=== PATIENT | male | born 1940 | race Two or more races ===

== ENCOUNTER 2023-05-31 12:32 | Inpatient (IN) | payer OTHER ==
[~2023-05-31] VITALS: Ht 188 cm; Wt 55.5 kg
[2023-05-31] MEDS ORDERED: SODIUM CHLORIDE 0.9% 1,000 ML IV ONE (13:00)
[2023-05-31 13:28] LABS: Basophils # (auto) 0 10 ^3/uL (0-0.2); Basophils % (auto) 0.7 % (0.0-2.0); Eosinophils # (auto) 0.1 10 ^3/uL (0-0.8); Eosinophils % (auto) 1.9 % (0.0-7.0); Hematocrit 39.9 % (41.0-53.0); Hemoglobin 13.4 g/dL (13.5-17.5); Lymphocytes # (auto) 2.8 10 ^3/uL (0.4-5.4); Lymphocytes % (auto) 36.4 % (10.0-50.0); Mean Corpuscular Hemoglobin 31.6 pg (28.0-32.0); Mean Corpuscular Hgb Conc. 33.6 g/dL (32.0-36.0); Mean Corpuscular Volume 93.9 fL (80.0-100.0); Monocytes # (auto) 0.4 10 ^3/uL (0-1.3); Monocytes % (auto) 5.9 % (0.0-12.0); Neutrophils # (auto) 4.2 10 ^3/uL (1.6-8.6); Neutrophils % (auto) 55.1 % (37.0-80.0); Nucleated Red Blood Cells % 0.2 %; Red Blood Cells 4.25 10^6/uL (4.5-5.90); Red Cell Distribution Width 14.7 % (11.8-14.3); White Blood Cell 7.6 10^3/uL (4.4-10.8)
[2023-05-31 13:34] VITALS: PULSE 77; RESP 17; O2SAT 98
[2023-05-31 13:47] LABS: Lactic Acid w/Reflex 4.8 mmol/L (0.4-2.0)
[2023-05-31 13:49] LABS: Albumin 3.3 g/dL (3.4-5.0); Calcium 9.1 mg/dL (8.5-10.1); Magnesium 1.9 mg/dL (1.6-2.6); Potassium 4.5 mmol/L (3.5-5.1)
[2023-05-31 14:05] LABS: BUN/Creatinine Ratio 16.7 (10.0-20.0); Bilirubin, Total 0.9 mg/dL (0.2-1.0); Total Protein 7.3 g/dL (6.4-8.2)
[2023-05-31 18:24] LABS: Urine Bacteria FEW /hpf (None Seen); Urine Blood 3+ /uL (Negative); Urine Clarity HAZY (Clear); Urine Color Yellow (Yellow); Urine Protein, UAD TRACE (Negative); Urine Specific Gravity 1.014 (1.001-1.035); Urine Urobilinogen Normal (Negative); Urine WBC 56 /hpf (0 - 3)
[2023-05-31 19:30] VITALS: PULSE 57; RESP 16; O2SAT 100
[2023-05-31] MEDS ORDERED: cefTRIAXone 1GM/50ML D5W 50 ML IV ONE (21:00)
[2023-05-31] MEDS: ACCU-CHEK COMFORT CURVE STRIP VI SCH (22:00)
[2023-05-31] MEDS ORDERED: NITROGLYCERIN 0.4 MG SL TAB SL PRN (22:00)
[2023-05-31] MEDS ORDERED: MORPHINE SULFATE INJ 2 MG/ml SYRG IV PRN (22:00)
[2023-05-31] MEDS ORDERED: DEXTROSE (50%) 50ML SYRG IV PRN (22:00)
[2023-05-31 22:13] LABS: COVID19 ANTIGEN SOFIA FIA NEGATIVE (NEGATIVE)
[2023-05-31] MEDS ORDERED: HYDR12.59 PO (22:16)
[2023-05-31] MEDS ORDERED: ATOR40TA52 PO (22:16)
[2023-05-31] MEDS ORDERED: METO-289 PO (22:16)
[2023-05-31] MEDS ORDERED: TELM1TAB33 PO (22:16)
[2023-05-31] MEDS ORDERED: PIOG1TAB37 PO (22:16)
[2023-05-31] MEDS ORDERED: ASPI-325 PO (22:16)
[2023-05-31] MEDS: InsuLIN REG 1unit/0.01ml Soln (100units/ml) SC SCH (22:58)
[2023-05-31] MEDS: SODIUM CHLORIDE 0.9% 1,000 ML IV SCH (23:04)
[2023-06-01] MEDS ORDERED: ACETAMINOPHEN 500 MG TAB PO ONE (01:45)
[2023-06-01 06:03] LABS: Basophils # (auto) 0 10 ^3/uL (0-0.2); Basophils % (auto) 0.1 % (0.0-2.0); Eosinophils # (auto) 0 10 ^3/uL (0-0.8); Hematocrit 37.2 % (41.0-53.0); Hemoglobin 12.5 g/dL (13.5-17.5); Lymphocytes # (auto) 0.4 10 ^3/uL (0.4-5.4); Lymphocytes % (auto) 2.3 % (10.0-50.0); Mean Corpuscular Hemoglobin 31.2 pg (28.0-32.0); Mean Corpuscular Hgb Conc. 33.6 g/dL (32.0-36.0); Mean Corpuscular Volume 92.7 fL (80.0-100.0); Monocytes # (auto) 0.9 10 ^3/uL (0-1.3); Monocytes % (auto) 5.5 % (0.0-12.0); Neutrophils % (auto) 92.1 % (37.0-80.0); Red Blood Cells 4.01 10^6/uL (4.5-5.90); Red Cell Distribution Width 14.1 % (11.8-14.3); White Blood Cell 17.4 10^3/uL (4.4-10.8)
[2023-06-01] MEDS ORDERED: SODIUM CHLORIDE 0.9% 500 ML IV ONE (06:15)
[2023-06-01 06:17] LABS: Albumin 2.8 g/dL (3.4-5.0); Calcium 8.4 mg/dL (8.5-10.1); Potassium 3.3 mmol/L (3.5-5.1)
[2023-06-01] MEDS: SODIUM CHLORIDE 0.9% 1,000 ML IV SCH ×2 (06:18→14:53)
[2023-06-01 06:19] LABS: Sodium Urine 101 mmol/L (40-220)
[2023-06-01 06:23] LABS: BUN/Creatinine Ratio 22.6 (10.0-20.0); Bilirubin, Total 0.6 mg/dL (0.2-1.0); Total Protein 6.4 g/dL (6.4-8.2)
[2023-06-01 06:23] LABS: Creatinine, Urine 96 mg/dL (30.0-125.0)
[2023-06-01] MEDS: InsuLIN REG 1unit/0.01ml Soln (100units/ml) SC SCH ×4 (07:00→22:00)
[2023-06-01] MEDS: ACCU-CHEK COMFORT CURVE STRIP VI SCH ×4 (07:03→22:00)
[2023-06-01 07:45] VITALS: PULSE 74; RESP 17; O2SAT 97
[2023-06-01] MEDS: METOPROLOL SUCCINATE XL 50 MG TAB PO SCH (09:15)
[2023-06-01] MEDS: PANTOPRAZOLE 40 MG TAB PO SCH (09:25)
[2023-06-01] MEDS: ASPirin-EC 81 mg tab PO SCH (09:25)
[2023-06-01] MEDS: cefTRIAXone 1GM/50ML D5W 50 ML IV SCH (09:25)
[2023-06-01 19:50] VITALS: O2SAT 97
[2023-06-01] MEDS: ATORVASTATIN 20 MG TAB PO SCH (22:00)
[2023-06-01 23:08] VITALS: BP 121/51; PULSE 59; RESP 20; TEMP 98; O2SAT 95
[2023-06-01 23:30] VITALS: BP 116/74; PULSE 77; PULSE 81; RESP 18; TEMP 98; O2SAT 96
[2023-06-02] VITALS (7 sets, daily range): BP systolic 117–151; BP diastolic 47–67; PULSE 49–59; RESP 16–18; TEMP 97.6–98; O2SAT 98–100
[2023-06-02] MEDS: SODIUM CHLORIDE 0.9% 1,000 ML IV SCH ×4 (05:09→21:48)
[2023-06-02] MEDS: ACCU-CHEK COMFORT CURVE STRIP VI SCH ×4 (05:42→21:44)
[2023-06-02] MEDS: InsuLIN REG 1unit/0.01ml Soln (100units/ml) SC SCH ×4 (05:42→21:50)
[2023-06-02] MEDS: cefTRIAXone 1GM/50ML D5W 50 ML IV SCH (09:43)
[2023-06-02] MEDS: ASPirin-EC 81 mg tab PO SCH (09:43)
[2023-06-02] MEDS: METOPROLOL SUCCINATE XL 50 MG TAB PO SCH (09:43)
[2023-06-02] MEDS: PANTOPRAZOLE 40 MG TAB PO SCH (09:43)
[2023-06-02] MEDS: ATORVASTATIN 20 MG TAB PO SCH (21:44)
[2023-06-03 04:52] VITALS: BP 126/52; PULSE 50; RESP 18; TEMP 98.3; O2SAT 100
[2023-06-03] MEDS: SODIUM CHLORIDE 0.9% 1,000 ML IV SCH ×2 (06:00→14:00)
[2023-06-03] MEDS: InsuLIN REG 1unit/0.01ml Soln (100units/ml) SC SCH ×3 (07:00→17:00)
[2023-06-03] MEDS: ACCU-CHEK COMFORT CURVE STRIP VI SCH ×3 (07:00→18:36)
[2023-06-03] MEDS: PANTOPRAZOLE 40 MG TAB PO SCH (08:17)
[2023-06-03] MEDS: ASPirin-EC 81 mg tab PO SCH (08:17)
[2023-06-03] MEDS: cefTRIAXone 1GM/50ML D5W 50 ML IV SCH (08:17)
[2023-06-03] MEDS: METOPROLOL SUCCINATE XL 50 MG TAB PO SCH (08:17)
[2023-06-03 09:00] VITALS: BP 135/58; PULSE 58; RESP 18; TEMP 97.7; O2SAT 99
[2023-06-03] MEDS ORDERED: CIPR-173 PO (10:30)
[2023-06-03 12:52] VITALS: BP 125/60; PULSE 52; RESP 16; TEMP 97.6; O2SAT 98
[2023-06-03 13:08] VITALS: BP 135/58; PULSE 58; TEMP 36.4
[2023-06-03 17:00] VITALS: BP 136/66; PULSE 50; RESP 16; TEMP 97.9; O2SAT 99
== END 2023-06-03 19:03 | disposition home or self-care (01) | DRG 871 ==
LOC: ER 12:32 → TELE 22:14 → TELE-WESTW 06-01 22:50
PROVIDERS: ADMIT Nurse Practitioner Family; ATTEND Family Medicine
DX: A41.51 Sepsis due to Escherichia coli [E. coli] (principal); N17.0 Acute kidney failure with tubular necrosis; E87.21 Acute metabolic acidosis; E44.1 Mild protein-calorie malnutrition; N30.01 Acute cystitis with hematuria; Z68.1 Body mass index [BMI] 19.9 or less, adult; R79.89 Other specified abnormal findings of blood chemistry; E11.65 Type 2 diabetes mellitus with hyperglycemia; I10 Essential (primary) hypertension; E78.00 Pure hypercholesterolemia, unspecified; E86.0 Dehydration; F10.10 Alcohol abuse, uncomplicated; Z20.822 Contact with and (suspected) exposure to COVID-19; Z90.49 Acquired absence of other specified parts of digestive tract; Z71.51 Drug abuse counseling and surveillance of drug abuser
CPT/HCPCS: 36415; 71045; 80053; 80320; 81001; 82010; 82570; 82962; 83036; 83605; 83735; 84300; 84443; 85025; 87040; 87086; 87088; 87186; 87426; 93005; 96361; 96365; G0378; J0696; J1815

== ENCOUNTER → 2023-06-19 | Outpatient (CLI) | payer OTHER ==
[~2023-06-19] MED LIST: ASPI-325 PO; ATOR40TA52 PO; CIPR-173 PO; HYDR12.59 PO; METO-289 PO; PIOG1TAB37 PO; TELM1TAB33 PO
[2023-06-19 11:14] LABS: Urine Bacteria NONE SEEN /hpf (None Seen); Urine Blood Negative /uL (Negative); Urine Clarity Clear (Clear); Urine Color Yellow (Yellow); Urine Protein, UAD TRACE (Negative); Urine Specific Gravity 1.019 (1.001-1.035); Urine Urobilinogen Normal (Negative); Urine WBC 6 /hpf (0 - 3); Urine pH 5.5 (5.0-8.0)
== END | disposition home or self-care (01) ==
LOC: LAB 11:01
PROVIDERS: ATTEND Internal Medicine
DX: N39.0 Urinary tract infection, site not specified (principal)
CPT/HCPCS: 81001; 87086

== ENCOUNTER → 2023-08-29 | Outpatient (CLI) | payer OTHER ==
[2023-08-29 11:28] LABS: Basophils # (auto) 0 10 ^3/uL (0-0.2); Basophils % (auto) 0.4 % (0.0-2.0); Eosinophils # (auto) 0.2 10 ^3/uL (0-0.8); Eosinophils % (auto) 3.2 % (0.0-7.0); Hematocrit 35.8 % (41.0-53.0); Hemoglobin 12.1 g/dL (13.5-17.5); Lymphocytes # (auto) 2.3 10 ^3/uL (0.4-5.4); Lymphocytes % (auto) 31.6 % (10.0-50.0); Mean Corpuscular Hemoglobin 31.8 pg (28.0-32.0); Mean Corpuscular Hgb Conc. 33.9 g/dL (32.0-36.0); Mean Corpuscular Volume 93.9 fL (80.0-100.0); Monocytes # (auto) 0.4 10 ^3/uL (0-1.3); Monocytes % (auto) 5.9 % (0.0-12.0); Neutrophils # (auto) 4.3 10 ^3/uL (1.6-8.6); Neutrophils % (auto) 58.9 % (37.0-80.0); Red Blood Cells 3.82 10^6/uL (4.5-5.90); Red Cell Distribution Width 15.1 % (11.8-14.3); White Blood Cell 7.3 10^3/uL (4.4-10.8)
[2023-08-29 12:17] LABS: Folate (Folic Acid) 23.3 ng/mL (>5.38)
[2023-08-29 12:20] LABS: Alanine Aminotransferase 12 U/L (7-40); Albumin 3.8 g/dL (3.2-4.8); Alkaline Phosphatase 109 U/L (46-116); Anion Gap 11 (5-15); Aspartate Aminotransferase 17 U/L (13-40); Bilirubin, Total 0.8 mg/dL (0.2-1.0); Blood Urea Nitrogen 13 mg/dL (9-23); Calcium 8.8 mg/dL (8.7-10.4); Carbon Dioxide 24 mmol/L (20-30); Chloride 103 mmol/L (98-107); Glucose 198 mg/dL (74-106); Potassium 4.1 mmol/L (3.5-5.1); Sodium 138 mmol/L (136-145); Total Protein 6.8 g/dL (5.7-8.2); Uric Acid 7.1 mg/dL (3.7-9.2)
[2023-08-29 12:30] LABS: Cholesterol 66 mg/dL (< 200); Triglycerides 73 mg/dL (< 150)
[2023-08-29 12:31] LABS: HDL Cholesterol 24 mg/dL (40-59); LDL Cholesterol 27 mg/dL (< 100)
== END | disposition home or self-care (01) ==
LOC: LAB 11:13
PROVIDERS: ATTEND Internal Medicine
DX: E61.2 Magnesium deficiency (principal); E79.0 Hyperuricemia without signs of inflammatory arthritis and tophaceous disease; R94.6 Abnormal results of thyroid function studies; R82.998 Other abnormal findings in urine; E55.9 Vitamin D deficiency, unspecified; D51.9 Vitamin B12 deficiency anemia, unspecified; R82.79 Other abnormal findings on microbiological examination of urine; E78.49 Other hyperlipidemia; R68.89 Other general symptoms and signs; R78.89 Finding of other specified substances, not normally found in blood; R73.09 Other abnormal glucose
CPT/HCPCS: 36415; 80053; 80061; 82306; 82607; 82746; 83036; 84443; 84550; 85025

== ENCOUNTER 2024-01-30 15:28 | Inpatient (IN) | payer OTHER, MEDICAID ==
[~2024-01-30] VITALS: Ht 185.4 cm; Wt 78.3 kg
[~2024-01-30 15:28] MED LIST changes: +CEFD300C2 PO; -CIPR-173 PO; -METO-289 PO; +MULT-1018 PO
[2024-01-30 20:45] LABS: Basophils # (auto) 0 10 ^3/uL (0-0.2); Basophils % (auto) 0.5 % (0.0-2.0); Eosinophils # (auto) 0.2 10 ^3/uL (0-0.8); Eosinophils % (auto) 3.5 % (0.0-7.0); Hematocrit 39.5 % (41.0-53.0); Lymphocytes % (auto) 30.2 % (10.0-50.0); Mean Corpuscular Hemoglobin 30.9 pg (28.0-32.0); Mean Corpuscular Volume 93.7 fL (80.0-100.0); Monocytes # (auto) 0.4 10 ^3/uL (0-1.3); Monocytes % (auto) 6.9 % (0.0-12.0); Neutrophils # (auto) 3.8 10 ^3/uL (1.6-8.6); Neutrophils % (auto) 58.9 % (37.0-80.0); Nucleated Red Blood Cells % 0.1 %; Red Blood Cells 4.21 10^6/uL (4.5-5.90); Red Cell Distribution Width 14.1 % (11.8-14.3); White Blood Cell 6.5 10^3/uL (4.4-10.8)
[2024-01-30 21:00] VITALS: BP 150/66; PULSE 57; RESP 17; TEMP 96.9; O2SAT 97
[2024-01-30 21:02] LABS: Alanine Aminotransferase 12 U/L (7-40); Albumin 3.7 g/dL (3.2-4.8); Alkaline Phosphatase 85 U/L (46-116); Anion Gap 9 (5-15); Aspartate Aminotransferase 19 U/L (13-40); BUN/Creatinine Ratio 12.7 (10.0-20.0); Blood Alcohol 4.6 mg/dL (<10); Blood Urea Nitrogen 13 mg/dL (9-23); Calcium 9.1 mg/dL (8.5-10.1); Carbon Dioxide 23 mmol/L (20-30); Chloride 106 mmol/L (98-107); Glucose 172 mg/dL (74-106); Potassium 4.4 mmol/L (3.5-5.1); Sodium 138 mmol/L (136-145)
[2024-01-30 21:03] LABS: Bilirubin, Total 0.4 mg/dL (0.2-1.0); Total Protein 6.6 g/dL (5.7-8.2)
[2024-01-30 21:32] LABS: Lactic Acid w/Reflex 2.2 mmol/L (0.4-2.0)
[2024-01-30 21:34] LABS: Magnesium 1.8 mg/dL (1.6-2.6)
[2024-01-30] MEDS: SODIUM CHLORIDE 0.9% 1,000 ML IV ONE (23:02)
[2024-01-30] MEDS ORDERED: NITROGLYCERIN 0.4 MG SL TAB SL PRN (23:15)
[2024-01-30] MEDS ORDERED: ONDANSETRON HCL 4 MG/2 ML VIAL IV PRN (23:15)
[2024-01-30] MEDS: SODIUM CHLORIDE 0.9% 1,000 ML IV SCH (23:15)
[2024-01-30] MEDS ORDERED: HYDROcodone-ACET 5/325MG TAB PO PRN (23:15)
[2024-01-30] MEDS ORDERED: MORPHINE SULFATE INJ 2 MG/ml SYRG IV PRN (23:15)
[2024-01-31] MEDS: SODIUM CHLORIDE 0.9% 500 ML IV ONE (00:27)
[2024-01-31 01:00] VITALS: BP 142/61; PULSE 50; RESP 18; TEMP 97.6; O2SAT 100
[2024-01-31 06:04] LABS: Basophils # (auto) 0 10 ^3/uL (0-0.2); Basophils % (auto) 0.7 % (0.0-2.0); Eosinophils # (auto) 0.2 10 ^3/uL (0-0.8); Eosinophils % (auto) 4.3 % (0.0-7.0); Hematocrit 32.1 % (41.0-53.0); Hemoglobin 10.7 g/dL (13.5-17.5); Lymphocytes % (auto) 34.2 % (10.0-50.0); Mean Corpuscular Hemoglobin 31.1 pg (28.0-32.0); Mean Corpuscular Hgb Conc. 33.3 g/dL (32.0-36.0); Mean Corpuscular Volume 93.4 fL (80.0-100.0); Monocytes # (auto) 0.5 10 ^3/uL (0-1.3); Monocytes % (auto) 8.8 % (0.0-12.0); Nucleated Red Blood Cells % 0.1 %; Red Blood Cells 3.43 10^6/uL (4.5-5.90); Red Cell Distribution Width 14.1 % (11.8-14.3); White Blood Cell 5.7 10^3/uL (4.4-10.8)
[2024-01-31 06:27] LABS: Albumin 2.8 g/dL (3.2-4.8); Alkaline Phosphatase 65 U/L (46-116); Anion Gap 8 (5-15); Aspartate Aminotransferase < 8 U/L (13-40); BUN/Creatinine Ratio 15.1 (10.0-20.0); Bilirubin, Total 0.3 mg/dL (0.2-1.0); Blood Urea Nitrogen 14 mg/dL (9-23); Calcium 8.1 mg/dL (8.5-10.1); Carbon Dioxide 23 mmol/L (20-30); Chloride 110 mmol/L (98-107); Glucose 130 mg/dL (74-106); Sodium 141 mmol/L (136-145); Total Protein 4.9 g/dL (5.7-8.2)
[2024-01-31 06:33] LABS: Alanine Aminotransferase 9 U/L (7-40)
[2024-01-31 14:18] VITALS: BP 113/68; PULSE 53; RESP 18; TEMP 97.8; O2SAT 98
[2024-01-31 19:50] VITALS: PULSE 50
[2024-01-31 20:00] VITALS: PULSE 52
[2024-01-31 21:00] VITALS: BP 150/66; PULSE 57; RESP 17; TEMP 96.9; O2SAT 97
[2024-02-01] VITALS (11 sets, daily range): BP systolic 116–176; BP diastolic 61–85; PULSE 49–62; RESP 17–21; TEMP 97.5–98.4; O2SAT 96–100
[2024-02-02] VITALS (8 sets, daily range): BP systolic 140–187; BP diastolic 58–83; PULSE 44–65; RESP 16–19; TEMP 97.4–98.1; O2SAT 98–100
[2024-02-02] MEDS: hydrALAZINE HCL 20 MG/ML VL IV PRN (14:09)
[2024-02-02] MEDS: hydroCHLOROthiazide 25 MG TAB PO ONE (14:10)
[2024-02-02] MEDS: SODIUM CHLORIDE 0.9% 1,000 ML IV SCH (17:36)
[2024-02-03] VITALS (8 sets, daily range): BP systolic 123–156; BP diastolic 58–67; PULSE 58–77; RESP 15–19; TEMP 97.7–98.2; O2SAT 95–99
[2024-02-03] MEDS: hydroCHLOROthiazide 25 MG TAB PO SCH (10:23)
[2024-02-03] MEDS: cefTRIAXone 1GM/50ML D5W 50 ML IV ONE (13:13)
[2024-02-03 17:20] LABS: Urine Bacteria None Seen /hpf (None Seen)
[2024-02-03 17:29] LABS: Urine Blood Negative /uL (Negative); Urine Clarity Clear (Clear); Urine Color Light-Yellow (Yellow); Urine Protein, UAD Negative (Negative); Urine Specific Gravity 1.011 (1.001-1.035); Urine Urobilinogen Normal (Negative); Urine WBC 2 /hpf (0 - 3)
[2024-02-03 19:10] LABS: Amphetamine Screen, Urine Neg (NEGATIVE); Barbiturate Scree,Urine Neg (NEGATIVE); Benzodiazephine Screen, Urine Neg (NEGATIVE); Cocaine Screen, Urine Neg (NEGATIVE); Opiate Scree,Urine Neg (NEGATIVE)
[2024-02-03 19:11] LABS: Cannabinoid Screen, Urine Neg (NEGATIVE); Phencyclidine Screen, Urine Neg (NEGATIVE)
[2024-02-03] MEDS: ATORVASTATIN 20 MG TAB PO SCH (21:41)
[2024-02-04 01:00] VITALS: BP 143/69; PULSE 66; RESP 14; TEMP 97.6; O2SAT 96
[2024-02-04 05:00] VITALS: BP 124/55; PULSE 60; RESP 14; TEMP 98; O2SAT 97
[2024-02-04 07:31] LABS: Anion Gap 6 (5-15); Carbon Dioxide 25 mmol/L (20-30); Chloride 106 mmol/L (98-107); Potassium 3.7 mmol/L (3.5-5.1); Sodium 137 mmol/L (136-145)
[2024-02-04 07:33] LABS: Calcium 8.5 mg/dL (8.5-10.1)
[2024-02-04 07:35] LABS: Basophils # (auto) 0 10 ^3/uL (0-0.2); Basophils % (auto) 0.9 % (0.0-2.0); Eosinophils # (auto) 0.3 10 ^3/uL (0-0.8); Eosinophils % (auto) 5.5 % (0.0-7.0); Hematocrit 33.9 % (41.0-53.0); Hemoglobin 11.5 g/dL (13.5-17.5); Lymphocytes # (auto) 1.6 10 ^3/uL (0.4-5.4); Lymphocytes % (auto) 32.3 % (10.0-50.0); Mean Corpuscular Hemoglobin 31.2 pg (28.0-32.0); Mean Corpuscular Hgb Conc. 34.1 g/dL (32.0-36.0); Mean Corpuscular Volume 91.5 fL (80.0-100.0); Monocytes # (auto) 0.4 10 ^3/uL (0-1.3); Monocytes % (auto) 8.7 % (0.0-12.0); Neutrophils # (auto) 2.7 10 ^3/uL (1.6-8.6); Neutrophils % (auto) 52.6 % (37.0-80.0); Nucleated Red Blood Cells % 0.1 %; Red Cell Distribution Width 13.8 % (11.8-14.3); White Blood Cell 5.1 10^3/uL (4.4-10.8)
[2024-02-04 07:37] LABS: BUN/Creatinine Ratio 13.3 (10.0-20.0); Blood Urea Nitrogen 12 mg/dL (9-23); Glucose 116 mg/dL (74-106)
[2024-02-04 08:00] VITALS: PULSE 57; PULSE 85; RESP 18
[2024-02-04 09:00] VITALS: BP 138/69; PULSE 57; RESP 18; TEMP 97.5; O2SAT 97
[2024-02-04] MEDS: cefTRIAXone 1GM/50ML D5W 50 ML IV SCH (09:54)
[2024-02-04] MEDS: hydroCHLOROthiazide 25 MG TAB PO SCH (09:55)
[2024-02-04] MEDS: MULTIPLE VITAMIN TAB PO SCH (09:56)
[2024-02-04] MEDS: ASPirin-EC 81 mg tab PO SCH (09:56)
[2024-02-04] MEDS ORDERED: CEFDINIR PO SCH (10:00)
[2024-02-04] MEDS: TELMISARTAN 20 MG TAB PO SCH (10:00)
[2024-02-04] MEDS ORDERED: LEV75T PO (10:37)
[2024-02-04] MEDS ORDERED: POLY335015 PO (10:37)
[2024-02-04] MEDS ORDERED: InsuLIN REG 1unit/0.01ml Soln (100units/ml) SC SCH (11:30)
[2024-02-04] MEDS: BISACODYL 5 MG EC TAB PO ONE (12:40)
[2024-02-04] MEDS: LACTULOSE 20Gm/30ML SOLN PO ONE (12:40)
[2024-02-04] MEDS: FLEET ENEMA(ADULT) 135 ML PR ONE (12:40)
[2024-02-04] MEDS: BISACODYL 10 MG RECT SUPP PR ONE (12:40)
[2024-02-04] MEDS ORDERED: DEXTROSE (50%) 50ML SYRG IV SCH (12:45)
[2024-02-04 13:00] VITALS: BP 129/64; PULSE 62; RESP 18; TEMP 97.5; O2SAT 97
[2024-02-04] MEDS: InsuLIN REG 1unit/0.01ml Soln (100units/ml) SC SCH (15:00)
[2024-02-04 15:58] VITALS: TEMP 36.4
[2024-02-04] MEDS ORDERED: InsuLIN REG 1unit/0.01ml Soln (100units/ml) SC ONE (17:00)
[2024-02-04] MEDS: ACCU-CHEK COMFORT CURVE STRIP VI SCH (17:00)
[2024-02-04] MEDS ORDERED: ATORVASTATIN 20 MG TAB PO SCH (22:00)
== END 2024-02-04 17:55 | disposition home health service (06) | DRG 310 ==
LOC: ER 15:28 → EDBD 15:28 → TELE 23:22 → TELE-E-ADS 01-31 14:03 → TELE-WESTW 01-31 17:14
PROVIDERS: ADMIT Internal Medicine; ATTEND Internal Medicine
DX: I44.0 Atrioventricular block, first degree (principal); I95.9 Hypotension, unspecified; E86.0 Dehydration; E11.9 Type 2 diabetes mellitus without complications; E78.5 Hyperlipidemia, unspecified; I10 Essential (primary) hypertension; N40.0 Benign prostatic hyperplasia without lower urinary tract symptoms; K21.9 Gastro-esophageal reflux disease without esophagitis; E03.9 Hypothyroidism, unspecified; K56.41 Fecal impaction; Z90.49 Acquired absence of other specified parts of digestive tract; Z83.3 Family history of diabetes mellitus; Z74.01 Bed confinement status
CPT/HCPCS: 36415; 71045; 74176; 80048; 80053; 80307; 80320; 81001; 82962; 83605; 83735; 83880; 84443; 84484; 85025; 87081; 97110; 97116; 97163; 97530; 99291; G0378; J1815

== ENCOUNTER 2024-04-27 12:41 | Inpatient (IN) | payer OTHER ==
[~2024-04-27] VITALS: Ht 180.3 cm; Wt 81.8 kg
[~2024-04-27 12:41] MED LIST changes: -CEFD300C2 PO; +LEV75T PO; +POLY335015 PO
[2024-04-27 13:22] LABS: Basophils # (auto) 0 10 ^3/uL (0-0.2); Basophils % (auto) 0.4 % (0.0-2.0); Eosinophils # (auto) 0 10 ^3/uL (0-0.8); Eosinophils % (auto) 0.1 % (0.0-7.0); Hematocrit 34.4 % (41.0-53.0); Hemoglobin 11.6 g/dL (13.5-17.5); Lymphocytes # (auto) 0.7 10 ^3/uL (0.4-5.4); Lymphocytes % (auto) 5.8 % (10.0-50.0); Mean Corpuscular Hemoglobin 31.4 pg (28.0-32.0); Mean Corpuscular Hgb Conc. 33.7 g/dL (32.0-36.0); Mean Corpuscular Volume 93.2 fL (80.0-100.0); Monocytes # (auto) 0.5 10 ^3/uL (0-1.3); Monocytes % (auto) 4.7 % (0.0-12.0); Red Cell Distribution Width 14.1 % (11.8-14.3); White Blood Cell 11.3 10^3/uL (4.4-10.8)
[2024-04-27] MEDS: SODIUM CHLORIDE 0.9% 1,000 ML IVB ONE (13:40)
[2024-04-27] MEDS: cefTRIAXone 1GM/50ML D5W 50 ML IV ONE (13:41)
[2024-04-27 13:49] LABS: Alanine Aminotransferase < 9 U/L (7-40); Albumin 3.1 g/dL (3.2-4.8); Alkaline Phosphatase 71 U/L (46-116); Anion Gap 7 (5-15); Aspartate Aminotransferase 13 U/L (13-40); BUN/Creatinine Ratio 22.2 (10.0-20.0); Blood Urea Nitrogen 22 mg/dL (9-23); Carbon Dioxide 23 mmol/L (20-30); Chloride 105 mmol/L (98-107); Glucose 220 mg/dL (74-106); Potassium 3.8 mmol/L (3.5-5.1); Sodium 135 mmol/L (136-145)
[2024-04-27 13:50] LABS: Bilirubin, Total 0.9 mg/dL (0.2-1.0); Total Protein 5.2 g/dL (5.7-8.2)
[2024-04-27 13:51] LABS: Lactic Acid w/Reflex 2.2 mmol/L (0.4-2.0)
[2024-04-27] MEDS ORDERED: DEXTROSE (50%) 50ML SYRG IV PRN (15:15)
[2024-04-27] MEDS ORDERED: NITROGLYCERIN 0.4 MG SL TAB SL PRN (15:45)
[2024-04-27] MEDS ORDERED: MORPHINE SULFATE INJ 2 MG/ml SYRG IV PRN (15:45)
[2024-04-27 16:59] LABS: LDL Cholesterol 31 mg/dL (< 100); Triglycerides 54 mg/dL (< 150)
[2024-04-27 17:01] LABS: Cholesterol 64 mg/dL (< 200); HDL Cholesterol 25 mg/dL (40-59)
[2024-04-27] MEDS: ACCU-CHEK COMFORT CURVE STRIP VI SCH (20:12)
[2024-04-27] MEDS: InsuLIN REG 1unit/0.01ml Soln (100units/ml) SC SCH (20:13)
[2024-04-27] MEDS: SODIUM CHLORIDE 0.9% 1,000 ML IV ONE (20:15)
[2024-04-27] MEDS: SODIUM CHLORIDE 0.9% 1,000 ML IV SCH (20:15)
[2024-04-27] MEDS: ACETAMINOPHEN 325 MG TAB PO PRN (21:27)
[2024-04-27] MEDS: ATORVASTATIN 20 MG TAB PO SCH (22:00)
[2024-04-27] MEDS: POLYETHYLENE GLYCOL 17 GM PWDR PO SCH (22:00)
[2024-04-28 02:10] VITALS: PULSE 55; RESP 20; O2SAT 97
[2024-04-28 05:02] LABS: Albumin 3.3 g/dL (3.2-4.8); Alkaline Phosphatase 73 U/L (46-116); Anion Gap 7 (5-15); Aspartate Aminotransferase 8 U/L (13-40); BUN/Creatinine Ratio 15.2 (10.0-20.0); Blood Urea Nitrogen 14 mg/dL (9-23); Calcium 8.3 mg/dL (8.7-10.4); Carbon Dioxide 23 mmol/L (20-30); Chloride 108 mmol/L (98-107); Glucose 99 mg/dL (74-106); Potassium 3.6 mmol/L (3.5-5.1); Sodium 138 mmol/L (136-145)
[2024-04-28 05:03] LABS: Bilirubin, Total 0.7 mg/dL (0.2-1.0); Total Protein 5.8 g/dL (5.7-8.2)
[2024-04-28 05:05] LABS: Basophils # (auto) 0 10 ^3/uL (0-0.2); Basophils % (auto) 0.4 % (0.0-2.0); Eosinophils # (auto) 0 10 ^3/uL (0-0.8); Eosinophils % (auto) 0.5 % (0.0-7.0); Hemoglobin 12.8 g/dL (13.5-17.5); Lymphocytes # (auto) 1.4 10 ^3/uL (0.4-5.4); Lymphocytes % (auto) 14.3 % (10.0-50.0); Mean Corpuscular Hemoglobin 32.6 pg (28.0-32.0); Mean Corpuscular Hgb Conc. 34.7 g/dL (32.0-36.0); Mean Corpuscular Volume 94.1 fL (80.0-100.0); Monocytes # (auto) 0.7 10 ^3/uL (0-1.3); Monocytes % (auto) 6.9 % (0.0-12.0); Neutrophils # (auto) 7.4 10 ^3/uL (1.6-8.6); Neutrophils % (auto) 77.9 % (37.0-80.0); Red Blood Cells 3.93 10^6/uL (4.5-5.90); Red Cell Distribution Width 14.3 % (11.8-14.3); White Blood Cell 9.6 10^3/uL (4.4-10.8)
[2024-04-28 05:27] LABS: Alanine Aminotransferase < 9 U/L (7-40)
[2024-04-28 07:27] VITALS: PULSE 55; RESP 15; O2SAT 98
[2024-04-28 09:18] LABS: Phosphorus 2.6 mg/dL (2.4-5.1)
[2024-04-28 09:19] LABS: Magnesium 1.4 mg/dL (1.6-2.6)
[2024-04-28] MEDS: ASPirin-EC 81 mg tab PO SCH (10:00)
[2024-04-28] MEDS ORDERED: LEVOTHYROXINE SODIUM 25 MCG TAB PO SCH (10:00)
[2024-04-28] MEDS: ENOXAPARIN SOD 40 MG/0.4 ML SYRINGE SC SCH (10:00)
[2024-04-28] MEDS: TELMISARTAN 20 MG TAB PO SCH (10:00)
[2024-04-28] MEDS: cefTRIAXone 1GM/50ML D5W 50 ML IV ONE (11:30)
[2024-04-28] MEDS: hydroCHLOROthiazide 25 MG TAB PO SCH (11:35)
[2024-04-28] MEDS: MULTIPLE VITAMIN TAB PO SCH (11:39)
[2024-04-28] MEDS: LEVOTHYROXINE SODIUM 25 MCG TAB PO ONE (11:47)
[2024-04-28] MEDS: MAGNESIUM SULFATE 1GM/100ML 100 ML IV ONE (11:55)
[2024-04-28] MEDS: CALCIUM GLUC 1,000mg/50ml-NS 50 ML IV SCH ×2 (11:55→12:30)
[2024-04-28] MEDS: MAGNESIUM SULFATE 1GM/100ML 100 ML IV SCH (12:00)
[2024-04-28 12:16] LABS: Urine Bacteria None Seen /hpf (None Seen)
[2024-04-28 12:27] LABS: Urine Blood 1+ /uL (Negative); Urine Clarity Clear (Clear); Urine Color Yellow (Yellow); Urine Protein, UAD 1+ (Negative); Urine Specific Gravity 1.015 (1.001-1.035); Urine Urobilinogen 3 mg/dL (Negative); Urine WBC 116 /hpf (0 - 3); Urine pH 5.5 (5.0-9.0)
[2024-04-28 12:41] LABS: Amphetamine Screen, Urine Neg (NEGATIVE); Barbiturate Scree,Urine Neg (NEGATIVE); Benzodiazephine Screen, Urine Neg (NEGATIVE); Cocaine Screen, Urine Neg (NEGATIVE); Opiate Scree,Urine Neg (NEGATIVE); Phencyclidine Screen, Urine Neg (NEGATIVE)
[2024-04-28 12:42] LABS: Cannabinoid Screen, Urine Neg (NEGATIVE)
[2024-04-28] MEDS: LISINOPRIL 5 MG TAB PO ONE (14:51)
[2024-04-28 18:53] VITALS: BP 157/70; PULSE 67; RESP 18; TEMP 98; O2SAT 99
[2024-04-28] MEDS ORDERED: ACET-1882 PO (19:56)
[2024-04-28] MEDS ORDERED: CEPH250C PO (19:56)
[2024-04-29] MEDS ORDERED: LEVOTHYROXINE SODIUM 25 MCG TAB PO SCH (06:00)
[2024-04-29] MEDS ORDERED: cefTRIAXone 1GM/50ML D5W 50 ML IV SCH (09:00)
[2024-04-29] MEDS ORDERED: LISINOPRIL 5 MG TAB PO SCH (10:00)
== END 2024-04-28 20:00 | disposition home or self-care (01) | DRG 871 ==
LOC: EDBD 12:41 → ER 12:41 → TELE 15:38
PROVIDERS: ADMIT Internal Medicine; ATTEND Internal Medicine
DX: A41.9 Sepsis, unspecified organism (principal); G93.41 Metabolic encephalopathy; N39.0 Urinary tract infection, site not specified; E46 Unspecified protein-calorie malnutrition; E87.20 Acidosis, unspecified; I10 Essential (primary) hypertension; E03.9 Hypothyroidism, unspecified; E78.5 Hyperlipidemia, unspecified; F03.90 Unspecified dementia, unspecified severity, without behavioral disturbance, psychotic disturbance, mood disturbance, and anxiety; E87.8 Other disorders of electrolyte and fluid balance, not elsewhere classified; E83.42 Hypomagnesemia; E83.51 Hypocalcemia; N40.0 Benign prostatic hyperplasia without lower urinary tract symptoms; D69.6 Thrombocytopenia, unspecified; E11.9 Type 2 diabetes mellitus without complications; Z79.4 Long term (current) use of insulin; Z79.899 Other long term (current) drug therapy; Z68.25 Body mass index [BMI] 25.0-25.9, adult
CPT/HCPCS: 36415; 70450; 80053; 80061; 80307; 81001; 82043; 82306; 82607; 82962; 83036; 83605; 83735; 84100; 84153; 84443; 85025; 87040; 93005; 96361; 96365; G0378; J1815

== ENCOUNTER → 2024-07-14 | Outpatient (CLI) | payer OTHER ==
[~2024-07-14] MED LIST changes: +ACET-1882 PO; +CEPH250C PO
[2024-07-14 11:31] LABS: Basophils # (auto) 0 10 ^3/uL (0-0.2); Basophils % (auto) 0.8 % (0.0-2.0); Eosinophils # (auto) 0.2 10 ^3/uL (0-0.8); Eosinophils % (auto) 4.2 % (0.0-7.0); Hematocrit 37.5 % (41.0-53.0); Hemoglobin 13.1 g/dL (13.5-17.5); Lymphocytes # (auto) 2.4 10 ^3/uL (0.4-5.4); Lymphocytes % (auto) 44.7 % (10.0-50.0); Mean Corpuscular Volume 97.3 fL (80.0-100.0); Monocytes # (auto) 0.3 10 ^3/uL (0-1.3); Monocytes % (auto) 5.6 % (0.0-12.0); Neutrophils # (auto) 2.4 10 ^3/uL (1.6-8.6); Neutrophils % (auto) 44.7 % (37.0-80.0); Platelet Count (auto) 126 10^3/uL (140-450); Red Blood Cells 3.85 10^6/uL (4.5-5.90); Red Cell Distribution Width 14.3 % (11.8-14.3); White Blood Cell 5.3 10^3/uL (4.4-10.8)
[2024-07-14 12:22] LABS: Albumin 3.7 g/dL (3.2-4.8); Alkaline Phosphatase 81 U/L (46-116); Anion Gap 10 (5-15); Aspartate Aminotransferase 10 U/L (13-40); BUN/Creatinine Ratio 16.8 (10.0-20.0); Blood Urea Nitrogen 16 mg/dL (9-23); Calcium 9.3 mg/dL (8.7-10.4); Carbon Dioxide 24 mmol/L (20-31); Chloride 107 mmol/L (98-107); Glucose 144 mg/dL (74-106); LDL Cholesterol 59 mg/dL (< 100); Magnesium 1.4 mg/dL (1.6-2.6); Potassium 3.3 mmol/L (3.5-5.1); Sodium 141 mmol/L (136-145); Triglycerides 70 mg/dL (< 150)
[2024-07-14 12:23] LABS: Bilirubin, Total 0.8 mg/dL (0.2-1.0); Cholesterol 99 mg/dL (< 200); HDL Cholesterol 31 mg/dL (40-59); Total Protein 6.6 g/dL (5.7-8.2)
[2024-07-14 12:26] LABS: Alanine Aminotransferase 9 U/L (7-40)
[2024-07-14 12:28] LABS: Folate (Folic Acid) 13.72 ng/mL (>5.38)
[2024-07-14 12:56] LABS: Uric Acid 5.5 mg/dL (3.7-9.2)
== END | disposition home or self-care (01) ==
LOC: LAB 11:10
PROVIDERS: ATTEND Internal Medicine
DX: R79.89 Other specified abnormal findings of blood chemistry (principal); R68.89 Other general symptoms and signs; R82.90 Unspecified abnormal findings in urine
CPT/HCPCS: 36415; 80053; 80061; 82306; 82607; 82746; 83036; 83735; 84443; 84550; 85025

== ENCOUNTER 2025-01-19 09:31 | Inpatient (IN) | payer OTHER ==
[~2025-01-19] VITALS: Ht 175.3 cm; Wt 69.4 kg
--- NOTE | 2025-01-19 10:27 | ED.PDOC ---
GI ASSESSMENT HPI Comments 87 year old male presents to the ED via EMS with a chief complaint of abdominal pain onset last night. Per EMS, patient began experiencing abdominal pain last night, worsen today. Upon EMS arrival patient was tachycardiac with 130 bpm. blood glucose was 116. Patient was prescribed Azithromycin on 01/13/25 for UTI. PMHx HTN,DM, dementia, UTI, thyorid. Denies chest pain, headache, dizziness, blurry vision, nausea, vomiting, shortness of breath. No other symptoms or modifying factors present at this time. Chief Complaint: Abdominal Pain Time Seen by MD: 10:00 Primary Care Provider: NORBERT Reviewed Notes: Medications, Allergies Allergies: Coded Allergies: NO KNOWN ALLERGIES (Unverified , 05/31/23) Home Meds Active Scripts Cephalexin (KEFLEX CAPSULE) 250 Mg Cp, 1 CAP PO QID for 7 Days, #28 CAP Prov:MIRNA WINSTON RESIDENT 04/28/24 Acetaminophen (Acetaminophen) 325 Mg Tab, 650 MG PO Q6HP PRN for 30 Days, #240 TAB Prov:MIRNA WINSTON RESIDENT 04/28/24 Polyethylene Glycol 3350 (Miralax) 17 Gm Pow, 17 GM PO BID for 30 Days, #120 POW Prov:LALO CARDOZO MD 02/04/24 Levothyroxine Sodium (Synthroid) 75 Mcg Tab, 1 TAB PO DAILY, #30 TAB 1 Refill Prov:LALO CARDOZO MD 02/04/24 Reported Medications Multiple Vitamin (Multivitamins) Tab, 1 TAB PO DAILY, #90 TAB 3 Refills 01/24/24 Aspirin (Aspirin Low Dose) 81 Mg Tab, 1 TAB PO DAILY 05/31/23 Hydrochlorothiazide (Hydrochlorothiazide) 12.5 Mg Cap, 1 CAP PO DAILY 05/31/23 Telmisartan (Telmisartan) 20 Mg Tab, 1 TAB PO DAILY 05/31/23 Pioglitazone Hydrochloride (PIOGLITAZONE HCL) 30 Mg Tab, 1 TAB PO DAILY 05/31/23 Atorvastatin Calcium (ATORVASTATIN CALCIUM) 40 Mg Tab, 1 TAB PO HS 05/31/23 Information Source: Patient, Emergency Med Personnel Mode of Arrival: EMS Timing: Days Duration: Since onset Prehospital treatment: None Quality: Aching Severity: Moderate Recent: None Recent Hx of: None Pain Location: Diffuse Modifying Factors: Nothing Associated sign and symptoms: Abdominal Pain Past Medical History PAST MEDICAL HISTORY: Dementia, DM, HTN, Thyroid, UTI'S Surgical History: Appendectomy Family History Family History: Reviewed,noncontributory to illness Social History Smoker: Non-Smoker Alcohol: Denies ETOH Use Drugs: Denies Drug Use Lives In: Home Constitutional: denies: chills, diaphoresis, fatigue, fever, malaise, sweats, weakness, others EENTM: denies: blurred vision, double vision, ear bleeding, ear discharge, ear drainage, ear pain, ear ringing, eye pain, eye redness, hearing loss, mouth pain, mouth swelling, nasal discharge, nose bleeding, nose congestion, nose pain, photophobia, tearing, throat pain, throat swelling, voice changes, others Respiratory: denies: cough, hemoptysis, orthopnea, SOB at rest, shortness of breath, SOB with excertion, stridor, wheezing, others Cardiovascular: denies: chest pain, dizzy spells, diaphoresis, Dyspnea on exertion, edema, irregular heart beat, left arm pain, lightheadedness, palpitations, PND, syncope, others Gastrointestinal: reports: abdominal pain; denies: abdomen distended, blood streaked bowels, constipated, diarrhea, dysphagia, difficulty swallowing, hematemesis, melena, nausea, poor appetite, poor fluid intake, rectal bleeding, rectal pain, vomiting, others Genitourinary: denies: burning, dysuria, flank pain, frequency, hematuria, incontinence, penile discharge, penile sore, pain, testicle pain, testicle swelling, urgency, others Neurological: denies: dizziness, fainting, headache, left sided numbness, left sided weakness, numbness, paresthesia, pre-existing deficit, right sided numbness, right sided weakness, seizure, speech problems, tingling, tremors, weakness, others Musculoskeletal: denies: back pain, gout, joint pain, joint swelling, muscle pain, muscle stiffness, neck pain, others Integumetry: denies: bruises, change in color, change in hair/nails, dryness, laceration, lesions, lumps, rash, wounds, others Allergic/Immunocompromised: denies: Difficulty Healing, Frequent Infections, Hives, Itching, others Hematologic/Lymphatic: denies: anemia, blood clots, easy bleeding, easy bruising, swollen glands, others Endocrine: denies: excessive hunger, excessive sweating, excessive thirst, excessive urination, flushing, intolerance to cold, intolerance to heat, unexplained weight gain, unexplained weight loss, others Psychiatric: denies: anxiety, bipolar disorder, depression, hopeless, panic disorder, schizophrenia, sleepless, suicidal, others All Other Systems: Reviewed and Negative Physical Exam General Appearance: No Apparent Distress, Normal HEENT: Normal ENT Inspection, Pharynx Normal, TMs Normal Neck: Full Range of Motion, Non-Tender, Normal, Normal Inspection Respiratory: Chest Non-Tender, Lungs Clear, No Accessory Muscle Use, No Respiratory Distress, Normal Breath Sounds Cardiovascular: No Edema, No JVD, No Murmur, No Gallop, Normal Peripheral Pulses, Regular Rate/Rhythm Breast Exam: Deferred Gastrointestinal: No Organomegaly, Non Tender, No Pulsatile Mass, Normal Bowel Sounds, Soft Genitalia: Deferred Pelvic: Deferred Rectal: Deferred Extremities: No calf tenderness, Normal capillary refill, Normal inspection, Normal range of motion, Non-tender, No pedal edema Musculoskeletal : Apperance: Normal Neurologic: Alert, job coaching II-XII nml as Tested, No Motor Deficits, Normal Affect, Normal Mood, No Sensory Deficits Cerebellar Function: Normal Reflexes: Normal Skin: Dry, Normal Color, Warm Lymphatic: No Adenopathy Was a procedure done? Was a procedure done?: No GI differential Dx Differential Diagnosis: Constipation, Gastritis/PUD, Gastroenteritis, GI hemorrhage, Hepatitis, Inflammatory BD, Dehydration X-Ray, Labs, Meds, VS Vital Signs Date Time Temp Pulse Resp B/P (MAP) Pulse Ox O2 Delivery O2 Flow Rate FiO2 01/19/25 12:00 93 01/19/25 10:20 97.6 101 16 92 97.6 01/19/25 10:20 Room Air* 0 21 01/19/25 10:15 97.8 132 18 154/119 (131) 97 97.8 01/19/25 09:39 118 Lab Test 01/19/25 12:54 01/19/25 10:58 Range/Units Lactic Acid Level 1.8 2.1 *H 0.4-2.0 mmol/L White Blood Count 5.3 4.4-10.8 10^3/uL Red Blood Count 4.37 L 4.5-5.90 10^6/uL Hemoglobin 13.7 13.5-17.5 g/dL Hematocrit 40.9 L 41.0-53.0 % Mean Corpuscular Volume 93.7 80.0-100.0 fL Mean Corpuscular Hemoglobin 31.4 28.0-32.0 pg Mean Corpuscular Hemoglobin Concent 33.5 32.0-36.0 g/dL Red Cell Distribution Width 14.6 H 11.8-14.3 % Platelet Count 142 140-450 10^3/uL Mean Platelet Volume 9.2 6.9-10.8 fL Neutrophils (%) (Auto) 67.4 37.0-80.0 % Lymphocytes (%) (Auto) 21.4 10.0-50.0 % Monocytes (%) (Auto) 9.2 0.0-12.0 % Eosinophils (%) (Auto) 1.1 0.0-7.0 % Basophils (%) (Auto) 0.9 0.0-2.0 % Neutrophils # (Auto) 3.6 1.6-8.6 10 ^3/uL Lymphocytes # (Auto) 1.1 0.4-5.4 10 ^3/uL Monocytes # (Auto) 0.5 0-1.3 10 ^3/uL Eosinophils # (Auto) 0.1 0-0.8 10 ^3/uL Basophils # (Auto) 0 0-0.2 10 ^3/uL Nucleated Red Blood Cells 0.1 % Sodium Level 143 136-145 mmol/L Potassium Level 3.9 3.5-5.1 mmol/L Chloride Level 110 H 98-107 mmol/L Carbon Dioxide Level 24 20-31 mmol/L Anion Gap 9 5-15 Blood Urea Nitrogen 27 H 9-23 mg/dL Creatinine 0.97 0.700-1.30 mg/dL Glomerular Filtration Rate Calc 77 >90 mL/min BUN/Creatinine Ratio 27.8 H 10.0-20.0 Serum Glucose 182 H 74-106 mg/dL Calcium Level 9.3 8.7-10.4 mg/dL Total Bilirubin 0.9 0.2-1.0 mg/dL Aspartate Amino Transferase (AST) 41 H 13-40 U/L Alanine Aminotransferase (ALT) 31 7-40 U/L Alkaline Phosphatase 157 H 46-116 U/L Total Protein 6.5 5.7-8.2 g/dL Albumin 3.5 3.2-4.8 g/dL Lipase 23 12-53 U/L [place] [address] Ph: [phone] DIAGNOSTIC IMAGING Diagnostic Imaging Report : [id number] Signed PATIENT: MARK GARCIA ACCT: [id number] UNIT: [id number] : 1940 LOC: ER ROOM / BED: / AGE / SEX: 84 / M ADM STATUS: REG ER SERVICE 1027 ORDERING PHYSICIAN: MCKENZIE MARLEY MD PROCEDURE(s): ABPLIV - CT AB PEL WITH IV CON ONLY REASON: abdominal pain ORDER NUMBER(s): [id number], ACCESSION NUMBER(s): [id number] Exam: CT CT AB PEL WITH IV CON ONLY History: abdominal pain COMPARISON: None Technique: Multidetector spiral CT of the abdomen and pelvis was performed from lung bases to pubic symphysis. Intravenous contrast was administered during this examination. Portal venous imaging was obtained. Axial, coronal and sagittal multiplanar reformats were performed by the technologist on a separate workstation. Radiation Dose : 1. Abdomen/Pelvis: CTDIvol 11.52mGy, DLP 632.46 mGy*cm. Findings: Lung Bases: Cardiomegaly. Large bilateral pleural effusions. Bilateral lower lobe airspace disease. Liver: The liver is normal in size. No focal lesions. There is reflux of contrast from the heart into the IVC and hepatic veins. Gallbladder and Biliary Tree: Unremarkable Spleen: Unremarkable Pancreas: The pancreas is normal in appearance without focal lesions or abnormal enhancement. Adrenal Glands: Unremarkable Kidneys: No hydronephrosis. Bladder: Unremarkable Bowel: The stomach is grossly normal in appearance. Large volume stool in the rectum. The appendix is not visualized; however, no secondary findings of acute appendicitis identified. Ascites: Absent Lymphadenopathy: No mesenteric, retroperitoneal or periportal lymphadenopathy. Abdominal Wall and Mesentery: Unremarkable. Vasculature: The visualized abdominal aorta is normal in size and caliber. There is calcified atherosclerotic plaque involving the aorta and its branches. Abdominal and pelvic vessels demonstrate normal enhancement. Pelvic Organs: Unremarkable Musculoskeletal: No aggressive focal bony lesions, acute fractures or dislocation. Multilevel degenerative changes of the spine. IMPRESSION: Findings are suggestive of CHF. Large volume stool in the rectum. Radiation optimization: All CT scans at this facility use at least one of these dose optimization techniques: automated exposure control mA and/or kV adjustment per patient size (includes targeted exams where dose is matched to clinical indication) or iterative reconstruction. ATED BY: BEKA NDIAYE MD DICTATED DATE/TIME: 01/19/25 1300 SIGNED BY: BEKA NDIAYE MD SIGNED DATE/TIME: 01/19/25 1300 CC: Time of 1ST Reevaluation: 10:30 Reevaluation 1ST: Unchanged Patient Education/Counseling: Diagnosis, Treatment, Prognosis Family Education/Counseling: No Family Present Additional Information The following tests were ordered, and results were reviewed by me: EKG, CBC, CMP, LIPASE, LA W/ REFLEX, UA, CT AB PEL WITH IV CON Additional Information was gathered from interviewing the following independent historians: EMS I reviewed and agreed with the following test results read by other providers: CT AB PEL WITH IV CON I discussed treatment and results with medical personnel and: Patient Comprehensive systems review obtained and negative except for what is stated in the HPI. Departure 1 Departure Time of Disposition: 14:39 (Patient presented with abdominal pain that was concerning for possible appendicits, gastritis, cholecystitis, colitis, gastroenteritis, sbo, or orther possible surgical emergency. Data: 1. I ordered and reviewed the result of at least 3 labs including a CBC, BMP, and Urinalysis. 2. I independently interpreted the following tests: CT Abdoment and Pelvis is concerning for concerning for intractable abdominal pain and constipation .Risk:This patient has a high risk of morbidity due to further diagnostic testing or treatment and may suffer from an acute abdominal process disorder. Workup reveals intractable abdominal pain and patient should be admitted for further workup. and possible expert consultation. ) Impression: Primary Impression: Intractable abdominal pain Additional Impression: Constipation Qualified Codes: K59.00 - Constipation, unspecified Disposition: ADMITTED INPATIENT Admit to: Med Surg Condition: Serious Critical Care Note Critical Care Time?: No Stability Stability form required: No I personally scribed for MCKENZIE MARLEY MD ([email or web address]) on 01/19/25 at 10:27. Electronically submitted by Annette Dee ([email or web address]). I personally scribed for MCKENZIE MARLEY MD ([email or web address]) on 01/19/25 at 10:32. Electronically submitted by Annette Dee ([email or web address]). I personally scribed for MCKENZIE MARLEY MD ([email or web address]) on 01/19/25 at 11:06. Electronically submitted by Annette Dee ([email or web address]). I personally scribed for MCKENZIE MARLEY MD ([email or web address]) on 01/19/25 at 14:11. Electronically submitted by Annette Dee ([email or web address]). MCKENZIE MARLEY MD Jan 19, 2025 10:27
[2025-01-19 11:23] LABS: Basophils # (auto) 0 10 ^3/uL (0-0.2); Basophils % (auto) 0.9 % (0.0-2.0); Eosinophils # (auto) 0.1 10 ^3/uL (0-0.8); Eosinophils % (auto) 1.1 % (0.0-7.0); Hematocrit 40.9 % (41.0-53.0); Hemoglobin 13.7 g/dL (13.5-17.5); Lymphocytes # (auto) 1.1 10 ^3/uL (0.4-5.4); Lymphocytes % (auto) 21.4 % (10.0-50.0); Mean Corpuscular Hemoglobin 31.4 pg (28.0-32.0); Mean Corpuscular Hgb Conc. 33.5 g/dL (32.0-36.0); Mean Corpuscular Volume 93.7 fL (80.0-100.0); Monocytes # (auto) 0.5 10 ^3/uL (0-1.3); Monocytes % (auto) 9.2 % (0.0-12.0); Neutrophils # (auto) 3.6 10 ^3/uL (1.6-8.6); Neutrophils % (auto) 67.4 % (37.0-80.0); Nucleated Red Blood Cells % 0.1 %; Platelet Count (auto) 142 10^3/uL (140-450); Red Blood Cells 4.37 10^6/uL (4.5-5.90); Red Cell Distribution Width 14.6 % (11.8-14.3); White Blood Cell 5.3 10^3/uL (4.4-10.8)
[2025-01-19 11:38] LABS: Alanine Aminotransferase 31 U/L (7-40); Albumin 3.5 g/dL (3.2-4.8); Anion Gap 9 (5-15); BUN/Creatinine Ratio 27.8 (10.0-20.0); Bilirubin, Total 0.9 mg/dL (0.2-1.0); Calcium 9.3 mg/dL (8.7-10.4); Carbon Dioxide 24 mmol/L (20-31); Lipase 23 U/L (12-53); Potassium 3.9 mmol/L (3.5-5.1); Sodium 143 mmol/L (136-145); Total Protein 6.5 g/dL (5.7-8.2)
[2025-01-19 11:39] LABS: Alkaline Phosphatase 157 U/L (46-116); Aspartate Aminotransferase 41 U/L (13-40); Blood Urea Nitrogen 27 mg/dL (9-23); Chloride 110 mmol/L (98-107); Glucose 182 mg/dL (74-106)
[2025-01-19 11:52] LABS: Lactic Acid w/Reflex 2.1 mmol/L (0.4-2.0)
[2025-01-19] MEDS: IOHEXOL 300 MG/ML 100ML BOTTLE IJ ONE (12:25)
--- NOTE | 2025-01-19 13:02 | DVH ---
Exam: CT CT AB PEL WITH IV CON ONLY History: abdominal pain COMPARISON: None Technique: Multidetector spiral CT of the abdomen and pelvis was performed from lung bases to pubic s ymphysis. Intravenous contrast was administered during this examination. Portal venous imaging was o btained. Axial, coronal and sagittal multiplanar reformats were performed by the technologist on a [employer] workstation. Radiation Dose : 1. Abdomen/Pelvis: CTDIvol 11.52mGy, DLP 632.46 mGy*cm. Findings: Lung Bases: Cardiomegaly. Large bilateral pleural effusions. Bilateral lower lobe airspace disease. Liver: The liver is normal in size. No focal lesions. There is reflux of contrast from the heart int o the IVC and hepatic veins. Gallbladder and Biliary Tree: Unremarkable Spleen: Unremarkable Pancreas: The pancreas is normal in appearance without focal lesions or abnormal enhancement. Adrenal Glands: Unremarkable Kidneys: No hydronephrosis. Bladder: Unremarkable Bowel: The stomach is grossly normal in appearance. Large volume stool in the rectum. The appendix is not visualized; however, no secondary findings of acute appendicitis identified. Ascites: Absent Lymphadenopathy: No mesenteric, retroperitoneal or periportal lymphadenopathy. Abdominal Wall and Mesentery: Unremarkable. Vasculature: The visualized abdominal aorta is normal in size and caliber. There is calcified atheros clerotic plaque involving the aorta and its branches. Abdominal and pelvic vessels demonstrate normal enhancement. Pelvic Organs: Unremarkable Musculoskeletal: No aggressive focal bony lesions, acute fractures or dislocation. Multilevel degener ative changes of the spine. IMPRESSION: Findings are suggestive of CHF. Large volume stool in the rectum. Radiation optimization: All CT scans at this facility use at least one of these dose optimization jayla hniques: automated exposure control mA and/or kV adjustment per patient size (includes targeted exam s where dose is matched to clinical indication) or iterative reconstruction.
[2025-01-19] MEDS: POLYETHYLENE GLYCOL 17 GM PWDR PO ONE (15:37)
--- NOTE | 2025-01-19 16:29 | DVHHP2 ---
History of Present Illness Reason for Visit: abd pain History of Present Illness 84-year-old male past medical history hypertension diabetes dementia UTI thyroid disease surgical history appendectomy chief complaint there was no family at the bedside to get data but evaluating ED records in his states he has been having abdominal pain since last night worse today he also was found to be tachycardic at 1:30 a.m. in the ER. Patient had a recent treatment for a urinary tract infection January 13, 2025 they provided him with a Zithromax when asking patient questions he denies any abdominal pain no diarrhea no fever no chest pain no shortness with the breath when evaluating patient's labs and imaging from the ED CBC was unremarkable glucose was 182 lactate was 2.1 AST was [address] scan of the abdomen pelvis shows CHF large volume stool in the rectum. With these findings we will admit do cardiac workup for CHF in EKG also found AFib so we will do workup for heart failure along with providing medication for constipation. Past Medical History htn, dm, dementia, uti, hypothyroid, afib Past Surgical History surgical appy Family History Unable to assess due to current mental status Past Social History Unable to assess due to current mental status Review of Systems Review of Systems Unable to assess for ROS due to current mental status Constitutional: No: Fever, Chills, Sweats, Weakness, Malaise, Other Eyes: No: Pain, Vision change, Conjunctivae inflammation, Eyelid inflammation, Other, Redness ENT: No: Ear pain, Ear discharge, Nose pain, Nose discharge, Nose congestion, Mouth pain, Mouth swelling, Throat pain, Throat swelling, Other Gastrointestinal: Abdominal Pain; No: Nausea, Vomiting, Diarrhea, Constipation, Melena, Hematochezia, Other Allergies: Coded Allergies: NO KNOWN ALLERGIES (Unverified , 05/31/23) Exam Vital Signs Vital Signs Date Time Temp Pulse Resp B/P (MAP) Pulse Ox O2 Delivery O2 Flow Rate FiO2 01/19/25 12:00 93 01/19/25 10:20 97.6 16 92 97.6 01/19/25 10:20 Room Air* 0 21 General Appearance: Alert, Oriented X3, Cooperative, mild distress HEENT: Atraumatic, PERRLA, EOMI, Mucous membr. moist/pink Respiratory: Other (diminished throughout ) Cardiovascular: Other (afib with rvr) Abdominal: Normal bowel sounds, Soft, No tenderness, No hepatospenomegaly, No masses Extremities: No clubbing, No cyanosis, No edema, Normal pulses, No tenderness/swelling Skin: No rashes, No breakdown, No significant lesion Neuro: Normal speech, Strength at 5/5 X4 ext, Normal tone, Sensation intact Psych/Mental Status: Mental status NL, Mood NL Labs/Xrays CT scan chest abdomen pelvis shows large volume of stool in rectum and CHF I reviewed labs, imaging CT scan abdomen pelvis, EKG and all diagnostic studies on this patient from ED records and the medical chart Labs Test 01/19/25 12:54 01/19/25 10:58 Range/Units Lactic Acid Level 1.8 0.4-2.0 mmol/L White Blood Count 5.3 4.4-10.8 10^3/uL Red Blood Count 4.37 L 4.5-5.90 10^6/uL Hemoglobin 13.7 13.5-17.5 g/dL Hematocrit 40.9 L 41.0-53.0 % Mean Corpuscular Volume 93.7 80.0-100.0 fL Mean Corpuscular Hemoglobin 31.4 28.0-32.0 pg Mean Corpuscular Hemoglobin Concent 33.5 32.0-36.0 g/dL Red Cell Distribution Width 14.6 H 11.8-14.3 % Platelet Count 142 140-450 10^3/uL Mean Platelet Volume 9.2 6.9-10.8 fL Neutrophils (%) (Auto) 67.4 37.0-80.0 % Lymphocytes (%) (Auto) 21.4 10.0-50.0 % Monocytes (%) (Auto) 9.2 0.0-12.0 % Eosinophils (%) (Auto) 1.1 0.0-7.0 % Basophils (%) (Auto) 0.9 0.0-2.0 % Neutrophils # (Auto) 3.6 1.6-8.6 10 ^3/uL Lymphocytes # (Auto) 1.1 0.4-5.4 10 ^3/uL Monocytes # (Auto) 0.5 0-1.3 10 ^3/uL Eosinophils # (Auto) 0.1 0-0.8 10 ^3/uL Basophils # (Auto) 0 0-0.2 10 ^3/uL Nucleated Red Blood Cells 0.1 % Sodium Level 143 136-145 mmol/L Potassium Level 3.9 3.5-5.1 mmol/L Chloride Level 110 H 98-107 mmol/L Carbon Dioxide Level 24 20-31 mmol/L Anion Gap 9 5-15 Blood Urea Nitrogen 27 H 9-23 mg/dL Creatinine 0.97 0.700-1.30 mg/dL Glomerular Filtration Rate Calc 77 >90 mL/min BUN/Creatinine Ratio 27.8 H 10.0-20.0 Serum Glucose 182 H 74-106 mg/dL Calcium Level 9.3 8.7-10.4 mg/dL Total Bilirubin 0.9 0.2-1.0 mg/dL Aspartate Amino Transferase (AST) 41 H 13-40 U/L Alanine Aminotransferase (ALT) 31 7-40 U/L Alkaline Phosphatase 157 H 46-116 U/L Total Protein 6.5 5.7-8.2 g/dL Albumin 3.5 3.2-4.8 g/dL Lipase 23 12-53 U/L Assessment/Plan Assessment/Plan acute intractable abdominal pain likely from constipation ct scan abd pelvis with constipation ordered mirlax ordered fleets enema ordered Dulcolax prn acute on chronic diastolic systolic heart failure found on ct scan ordered cxr fu results last echo completed 01/26/24 ef 60%, reordered echo fu results ordered Lasix, asa. atorvastatin strict i/o's ordered bnp fu results consider bipap if worsening resp distress ordered cards consult fu results restrict sodium daily wt acute afib with rvr found on ekg ordered metoprolol ordered tsh mag and phos fu results acute lactic acidosis likely from hypoperfusion from chf found cxr ordered diuresis for now fu lactic acute severe constipation found on ct scan ordered miralax and Dulcolax supp chronic problems htn dm ISS dementia uti ordered ua fu results hypothyroidism repeat tsh fen/ppx diet hl scd lovenox protonix plan admit to tele cards consult fu results Plan discussed with: Other (from ed records pt not able to provide any information and no family at bedside ) Date of Service: Jan 19, 2025 Billing Provider: DAVID ONEAL DNP Common Visit Codes: [id number]-[id number] INP/OBS CARE (HIGH) DAVID ONEAL DNP Jan 19, 2025 16:29
[2025-01-19] MEDS ORDERED: ONDANSETRON HCL 4 MG/2 ML VIAL IV PRN (18:00)
[2025-01-19] MEDS ORDERED: NITROGLYCERIN 0.4 MG SL TAB SL PRN (18:00)
[2025-01-19] MEDS ORDERED: SODIUM CHLORIDE 0.9% 1,000 ML IV SCH (18:00)
[2025-01-19] MEDS ORDERED: DEXTROSE (50%) 50ML SYRG IV PRN (18:00)
[2025-01-19] MEDS ORDERED: DOCUSATE SOD 100 MG CAP PO PRN (18:00)
--- NOTE | 2025-01-19 18:31 | DVH ---
CHEST RADIOGRAPH Indication: eval for chf Technique: Single frontal view of the chest was obtained Comparison: XY CHEST PORTABLE on DOS: 01/30/24, XY CHEST PORTABLE on DOS: 01/24/24, XY CHEST PORTABLE o n DOS: 05/31/[address] examination of the chest of January 2024 Findings: There are bilateral effusions bilateral consolidates and fluid in the right upper lobe. Hea rt size remains within normal limits there is probable left atrial enlargement in prior CT examinatio n patient had left posterior lower lobe peribronchial thickening. IMPRESSION: Evidence for bilateral effusions and bilateral pneumonia. Follow-up PA and lateral or CT examination may be helpful
[2025-01-19 19:30] VITALS: PULSE 117; RESP 19; O2SAT 95
[2025-01-19 20:50] LABS: Lactic Acid w/Reflex 2.7 mmol/L (0.4-2.0)
[2025-01-19] MEDS: ATORVASTATIN 20 MG TAB PO SCH (21:18)
[2025-01-19] MEDS: FLEET ENEMA(ADULT) 135 ML PR ONE (21:18)
[2025-01-19] MEDS: METOPROLOL SUCCINATE XL 50 MG TAB PO SCH (21:18)
[2025-01-19] MEDS: POLYETHYLENE GLYCOL 17 GM PWDR PO SCH (21:18)
[2025-01-19] MEDS: InsuLIN REG 1unit/0.01ml Soln (100units/ml) SC SCH (21:24)
[2025-01-19] MEDS: ACCU-CHEK COMFORT CURVE STRIP VI SCH (21:24)
[2025-01-19] MEDS: PANTOPRAZOLE 40 MG/10 ML VIAL INJ IV ONE (21:46)
[2025-01-19 23:24] VITALS: BP 150/73; PULSE 96; RESP 18; TEMP 97.3; O2SAT 92
[2025-01-19 23:34] VITALS: PULSE 96; RESP 18; O2SAT 92
[2025-01-19 23:36] VITALS: BP 100/73; PULSE 96; RESP 18; TEMP 97.3; O2SAT 92
[2025-01-20] VITALS (9 sets, daily range): BP systolic 116–140; BP diastolic 72–91; PULSE 60–74; RESP 16–20; TEMP 94.2–98.6; O2SAT 90–98
--- NOTE | 2025-01-20 06:45 | ECG ---
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
[2025-01-20 07:51] LABS: Alanine Aminotransferase 29 U/L (7-40); Albumin 3.3 g/dL (3.2-4.8); Alkaline Phosphatase 141 U/L (46-116); Anion Gap 13 (5-15); BUN/Creatinine Ratio 29.9 (10.0-20.0); Blood Urea Nitrogen 29 mg/dL (9-23); Calcium 9.2 mg/dL (8.7-10.4); Carbon Dioxide 22 mmol/L (20-31); Chloride 109 mmol/L (98-107); Glucose 134 mg/dL (74-106); Potassium 3.8 mmol/L (3.5-5.1); Sodium 144 mmol/L (136-145); Total Protein 6.2 g/dL (5.7-8.2)
[2025-01-20 07:52] LABS: Aspartate Aminotransferase 33 U/L (13-40)
[2025-01-20 07:53] LABS: Basophils # (auto) 0 10 ^3/uL (0-0.2); Basophils % (auto) 0.7 % (0.0-2.0); Eosinophils # (auto) 0 10 ^3/uL (0-0.8); Eosinophils % (auto) 0.8 % (0.0-7.0); Hematocrit 39.4 % (41.0-53.0); Hemoglobin 13.7 g/dL (13.5-17.5); Lymphocytes # (auto) 1.1 10 ^3/uL (0.4-5.4); Lymphocytes % (auto) 18.8 % (10.0-50.0); Mean Corpuscular Hemoglobin 36.4 pg (28.0-32.0); Mean Corpuscular Hgb Conc. 34.8 g/dL (32.0-36.0); Mean Corpuscular Volume 104.4 fL (80.0-100.0); Monocytes # (auto) 0.6 10 ^3/uL (0-1.3); Neutrophils # (auto) 3.9 10 ^3/uL (1.6-8.6); Neutrophils % (auto) 69.7 % (37.0-80.0); Nucleated Red Blood Cells % 0.6 %; Platelet Count (auto) 128 10^3/uL (140-450); Red Blood Cells 3.77 10^6/uL (4.5-5.90); Red Cell Distribution Width 14.3 % (11.8-14.3); White Blood Cell 5.6 10^3/uL (4.4-10.8)
[2025-01-20 09:11] LABS: Urine Bacteria FEW /hpf (None Seen); Urine Blood 2+ /uL (Negative); Urine Clarity Clear (Clear); Urine Color Yellow (Yellow); Urine Mucus FEW (None Seen); Urine Protein, UAD 2+ (Negative); Urine Squamous Epithelial Cell FEW /hpf (<5); Urine Urobilinogen 4 mg/dL (Negative); Urine WBC 9 /HPF (0-3); Urine pH 5.5 (5.0-9.0)
[2025-01-20 09:12] LABS: Urine Specific Gravity > 1.035 (1.001-1.035)
[2025-01-20] MEDS: ENOXAPARIN SOD 40 MG/0.4 ML SYRINGE SC SCH (09:26)
--- NOTE | 2025-01-20 09:35 | ECG ---
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
--- NOTE | 2025-01-20 10:23 | DVHINCON2 ---
Date Seen: Jan 20, 2025 Referring Physician MD [place] resident Reason for Consultation Elevated troponin History of Present Illness This is an 84-year-old male patient who presents to the emergency with chief complaint of abdominal pain and constipation. He comes to the emergency room for further evaluation. At the time of assessment, the patient was confused and only alert to self. Spoke with the patient's daughter/caregiver Taylor for accurate history. According to the patient's daughter, the patient is usually confused given his history of dementia. She reports he was brought to the emergency room because he was complaining of abdominal pain. Cardiology has been consulted at this time for elevated troponin. Initial twelve lead electrocardiogram reveals atrial fibrillation with prolonged QTc interval. Initial troponin level of 109ng/L with flat trend thereafter. Significant past medical history includes hypertension, type 2 diabetes mellitus, thyroid disease, and dementia. Past Medical History Past medical history reviewed. No other significant than mentioned above. Past Surgical History Appendectomy Family History: Diabetes mellitus G8 MOTHER, , Onset:Unknown Family History Family history reviewed. Social History Denies the use of tobacco, alcohol or illicit drugs. Allergies: Coded Allergies: NO KNOWN ALLERGIES (Unverified , 05/31/23) Home Meds Active Scripts Cephalexin (KEFLEX CAPSULE) 250 Mg Cp, 1 CAP PO QID for 7 Days, #28 CAP Prov:MIRNA WINSTON RESIDENT 04/28/24 Acetaminophen (Acetaminophen) 325 Mg Tab, 650 MG PO Q6HP PRN for 30 Days, #240 TAB Prov:MIRNA WINSTON RESIDENT 04/28/24 Polyethylene Glycol 3350 (Miralax) 17 Gm Pow, 17 GM PO BID for 30 Days, #120 POW Prov:LALO CARDOZO MD 02/04/24 Levothyroxine Sodium (Synthroid) 75 Mcg Tab, 1 TAB PO DAILY, #30 TAB 1 Refill Prov:LALO CARDOZO MD 02/04/24 Reported Medications Multiple Vitamin (Multivitamins) Tab, 1 TAB PO DAILY, #90 TAB 3 Refills 01/24/24 Aspirin (Aspirin Low Dose) 81 Mg Tab, 1 TAB PO DAILY 05/31/23 Hydrochlorothiazide (Hydrochlorothiazide) 12.5 Mg Cap, 1 CAP PO DAILY 05/31/23 Telmisartan (Telmisartan) 20 Mg Tab, 1 TAB PO DAILY 05/31/23 Pioglitazone Hydrochloride (PIOGLITAZONE HCL) 30 Mg Tab, 1 TAB PO DAILY 05/31/23 Atorvastatin Calcium (ATORVASTATIN CALCIUM) 40 Mg Tab, 1 TAB PO HS 05/31/23 Home Meds Home medications reviewed. Current Medications Current Medications Medications (Trade) Dose Ordered Sig/Moni Route PRN Reason Start Time Stop Time Status Last Admin Aspirin (Ecotrin Enteric Coated Tablet) 81 mg DAILY PO 01/20/25 10:00 Polyethylene Glycol (Miralax 17GM Powder) 17 gm BID PO 01/19/25 22:00 01/19/25 21:18 Atorvastatin Calcium (Lipitor) 40 mg HS PO 01/19/25 22:00 01/19/25 21:18 Levothyroxine Sodium (Synthroid Tablet) 75 mcg DAILY PO 01/20/25 10:00 Diagnostic Test (Pha) (Accu-Chek Comfort Curve T) 1 strip ACHS 01/19/25 22:00 01/19/25 21:24 Insulin Human Regular (InsuLIN R) ACHS SC 01/19/25 22:00 01/19/25 21:24 Dextrose 50 ml UD PRN IV Blood Sugar LESS THAN 60 01/19/25 18:00 Sodium Chloride 1,000 ml @ 100 mls/hr Q10H IV 01/19/25 18:00 01/19/25 19:52 DC Ondansetron HCl (Zofran) 4 mg Q4HP PRN IV NAUSEA / VOMITING 01/19/25 18:00 Docusate Sodium (Colace Capsule) 100 mg BIDPRN PRN PO FOR CONSTIPATION 01/19/25 18:00 Morphine Sulfate 2 mg Q4HPRN PRN IV SEVERE PAIN (7-10 PAIN SCALE) 01/19/25 18:00 Enoxaparin Sodium (Lovenox) 40 mg DAILY SC 01/19/25 18:00 Nitroglycerin (Ntrostat Sublingual) 0.4 mg Q5MINP PRN SL FOR CHEST PAIN 01/19/25 18:00 Metoprolol Succinate (Toprol Xl) 25 mg BID PO 01/19/25 22:00 01/19/25 21:18 Pantoprazole Sodium (Protonix) 40 mg DAILY IV 01/20/25 10:00 Furosemide (Lasix Injection) 40 mg DAILY IV 01/20/25 10:00 Ceftriaxone Sodium 50 ml @ 100 mls/hr DAILY@09 IV 01/21/25 09:00 Review of Systems Constitutional: No symptom reported Ears, Nose, & Throat: No symptom reported Eyes: No symptom reported Neurological: No symptoms reported Pulmonary/Respiratory: No symptoms reported Cardiovascular: No symptom reported Gastrointestinal: Abdominal pain, constipation Genitourinary: No symptom reported Musculoskeletal: No symptom reported Skin: No symptom reported Psychiatric: No symptom reported Endocrine: No symptom reported Hematologic/Lymphatic: No symptom reported Vital Signs Vital Signs Date Time Temp Pulse Resp B/P (MAP) Pulse Ox O2 Delivery O2 Flow Rate FiO2 01/20/25 08:52 94.2 61 16 140/91 (107) 94 94.2 01/20/25 08:00 Room Air* 0 21 Physical Exam General Appearance: Cooperative. Thin Pulmonary/Respiratory: Diminished bilateral lower lobes Cardiovascular/Chest: Irregular rate and rhythm. Peripheral Pulses: 2+ Radial (R). 2+ Radial (L). 2+ Pedal (R). 2+ Pedal (L) Abdominal Exam: Normal bowel sounds. Ankle Exam: Negative ankle edema Lower extremities: Negative lower extremity edema Neuro/Mental Status: A/OX1, confused Thoughts/Psych: Deferred Appearance: No acute distress. Skin Exam: Normal inspection. Normal color. Warm and dry. Labs/Diagnostic Data Labs Test 01/20/25 10:15 01/20/25 08:30 01/20/25 06:33 01/20/25 04:33 Range/Units Urine Color Yellow Yellow Urine Clarity Clear Clear Urine pH 5.5 5.0-9.0 Urine Specific [place] > 1.035 H 1.001-1.035 Urine Protein 2+ H Negative Urine Ketones Negative Negative Urine Blood 2+ H Negative /uL Urine Nitrite Negative Negative Urine Bilirubin Negative Negative Urine Urobilinogen 4 H Negative mg/dL Urine Leukocyte Esterase Negative Negative /uL Urine RBC 52 0 - 3 /hpf Urine Microscopic WBC 9 H 0-3 /HPF Urine Squamous Epithelial Cells Few <5 /hpf Urine Bacteria Few H None Seen /hpf Urine Mucus Few None Seen Urine Glucose Normal Normal mg/dL White Blood Count 5.6 4.4-10.8 10^3/uL Red Blood Count 3.77 L 4.5-5.90 10^6/uL Hemoglobin 13.7 13.5-17.5 g/dL Hematocrit 39.4 L 41.0-53.0 % Mean Corpuscular Volume 104.4 #H 80.0-100.0 fL Mean Corpuscular Hemoglobin 36.4 H 28.0-32.0 pg Mean Corpuscular Hemoglobin Concent 34.8 32.0-36.0 g/dL Red Cell Distribution Width 14.3 11.8-14.3 % Platelet Count 128 L 140-450 10^3/uL Mean Platelet Volume 9.8 6.9-10.8 fL Neutrophils (%) (Auto) 69.7 37.0-80.0 % Lymphocytes (%) (Auto) 18.8 10.0-50.0 % Monocytes (%) (Auto) 10.0 0.0-12.0 % Eosinophils (%) (Auto) 0.8 0.0-7.0 % Basophils (%) (Auto) 0.7 0.0-2.0 % Neutrophils # (Auto) 3.9 1.6-8.6 10 ^3/uL Lymphocytes # (Auto) 1.1 0.4-5.4 10 ^3/uL Monocytes # (Auto) 0.6 0-1.3 10 ^3/uL Eosinophils # (Auto) 0 0-0.8 10 ^3/uL Basophils # (Auto) 0 0-0.2 10 ^3/uL Nucleated Red Blood Cells 0.6 % Sodium Level 144 136-145 mmol/L Potassium Level 3.8 3.5-5.1 mmol/L Chloride Level 109 H 98-107 mmol/L Carbon Dioxide Level 22 20-31 mmol/L Anion Gap 13 5-15 Blood Urea Nitrogen 29 H 9-23 mg/dL Creatinine 0.97 0.700-1.30 mg/dL Glomerular Filtration Rate Calc 77 >90 mL/min BUN/Creatinine Ratio 29.9 H 10.0-20.0 Serum Glucose 134 H 74-106 mg/dL Calcium Level 9.2 8.7-10.4 mg/dL Total Bilirubin 1.0 0.2-1.0 mg/dL Aspartate Amino Transferase (AST) 33 13-40 U/L Alanine Aminotransferase (ALT) 29 7-40 U/L Alkaline Phosphatase 141 H 46-116 U/L Total Protein 6.2 5.7-8.2 g/dL Albumin 3.3 3.2-4.8 g/dL Test 01/19/25 21:22 01/19/25 20:09 01/19/25 18:09 01/19/25 10:58 Range/Units POC Glucose 189 H 70-106 mg/dl Troponin I High Sensitivity 112 *H </=54 ng/L Thyroid Stimulating Hormone (TSH) 2.10 0.55-4.78 uIU/mL B-Type Natriuretic Peptide 880.41 0-100 pg/mL Lipase 23 12-53 U/L Assessment Atrial fibrillation, newly diagnosed Sepsis Pneumonia NSTEMI, type II secondary to above Rule out structural heart disease Hypertension Thyroid disease Dementia Plan/Recommendation We will continue with the following plan/recommendations (Dr. Arambual): * Transthoracic echocardiogram to evaluate cardiac function * [id number] VASc score: 5 points, HAS-BLED score: 2 points * Therapeutic Lovenox while inpatient. Monitor H&h, Plt count * Beta-elham for rate control * Avoid antiarrhythmic agents given unknown duration of AFib * Monitor and replete electrolytes as needed, keep potassium greater than four and magnesium greater than two * Close Cardiac surveillance At the time of assessment, the patient remains confused, but denies any cardiac symptoms. Elevated troponin level likely secondary to pneumonia and sepsis. The patient was also noted to be in atrial fibrillation. The patient's daughter, who was not the best historian, denies any history of atrial fibrillation, but mentions that the patient was on Eliquis in the past. She reports that the Eliquis was discontinued for reasons unknown. Educated the patient's family about the risks/benefits of starting the patient on NOAC therapy. The patient is at risk for stroke without anticoagulation, but is also at high risk for bleed on anticoagulation. According to the patient's daughter, the patient is not very mobile, but does attempt to get up. This places the patient at higher risk for falls. Family would like to hold off on NOAC therapy at this time. Thank you for allowing us to care for this patient. Please call with any questions or concerns. Critical care time spent: 43 minutes This medical document was created using an electronic medical record system with voice recognition software and computerized dictation system. Although this document has been carefully reviewed, there might still be some phonetic and typographical errors. Occasional wrong-word or ``sound-alike substitutions may have occurred due to the inherent limitations of voice recognition software. These areas are purely typographical due to imperfections of the software programs and do not reflect any compromise in the patient's medical care. Please read the chart carefully and recognize, using context, where these substitutions have occurred. Plan discussed with: Daughter NYHA Physical activity limitations: NA Date of Service: Jan 20, 2025 Billing Provider: ADALBERTO KEY Cardiology Common Codes: [id number] HOSP CARE(High ADALBERTO KEY Jan 20, 2025 10:23
[2025-01-20 10:51] LABS: Lactic Acid w/Reflex 2.1 mmol/L (0.4-2.0)
[2025-01-20] MEDS: LEVOTHYROXINE SODIUM 25 MCG TAB PO SCH (11:08)
[2025-01-20] MEDS: ASPirin-EC 81 mg tab PO SCH (11:09)
[2025-01-20] MEDS: SODIUM CHLORIDE 0.9% 500 ML IV ONE (11:20)
[2025-01-20] MEDS: FUROSEMIDE 40 MG/4 ML VIAL IV SCH (11:21)
[2025-01-20] MEDS: PANTOPRAZOLE 40 MG/10 ML VIAL INJ IV SCH (11:21)
[2025-01-20] MEDS: cefTRIAXone 1GM/50ML D5W 50 ML IV ONE (11:21)
--- NOTE | 2025-01-20 11:54 | DVHPNRES ---
Progress Note Date Seen: Jan 20, 2025 Resident Creating Document: AMINATA FIERRO RESIDENT Medical Necessity Reason Pt with a Central, PICC or Fol: Yes Subjective Review of Systems This is 84-year-old male with past medical history of hypertension, type 2 diabetes mellitus, dementia, hypothyroidism, status post appendectomy presented to the ED via EMS with a chief complaint of abdominal pain and constipation for last 4 days prior to this admission. Patient is confused and not able to give the full history. Patient was seen and examined on the bedside. He is alert oriented x2 . Mentioned relieved abdominal pain after bowel movement and complaining of intermittent chest pain. No other active complaint. Constitutional: No: Fever, Chills, Sweats, Weakness, Malaise, Other Eyes: No: Pain, Vision change, Conjunctivae inflammation, Eyelid inflammation, Other, Redness ENT: No: Ear pain, Ear discharge, Nose pain, Nose discharge, Nose congestion, Mouth pain, Mouth swelling, Throat pain, Throat swelling, Other Respiratory: Shortness of breath, improving No: Cough, Dry,Wheezing, Hemoptysis, Pleuritic Pain, Sputum, Wheezing, Other Cardiovascular: Chest Pain, No Palpitations, Orthopnea, Paroxysmal Noc. Dyspnea, Edema, Lt Headedness, Other Gastrointestinal: Nausea, Vomiting, Abdominal Pain, Constipation, No diarrhoea, Melena, Hematochezia, Other Musculoskeletal: No: other, neck pain, shoulder pain, arm pain, back pain, hand pain, leg pain, foot pain Neurological:; No: Weakness, Numbness, Incoordination, Change in speech, Confusion, Seizures Objective vital signs Vital Sign Date Time Temp Pulse Resp B/P (MAP) Pulse Ox O2 Delivery O2 Flow Rate FiO2 01/20/25 11:21 122/68 01/20/25 11:08 65 01/20/25 08:52 94.2 16 94 94.2 01/20/25 08:00 Room Air* 0 21 Total Intake and Output 01/19/25 01/19/25 01/20/25 15:00 23:00 07:00 Intake Total 0 ml Balance 0 ml medications Current Medications Medications Dose Ordered Sig/Moni Route Start Time Stop Time Status Last Admin Dose Admin Aspirin 81 mg DAILY PO 01/20/25 10:00 Polyethylene Glycol 17 gm BID PO 01/19/25 22:00 01/19/25 21:18 17 GM Atorvastatin Calcium 40 mg HS PO 01/19/25 22:00 01/19/25 21:18 40 MG Levothyroxine Sodium 75 mcg DAILY PO 01/20/25 10:00 Diagnostic Test (Pha) 1 strip ACHS 01/19/25 22:00 01/19/25 21:24 1 STRIP Insulin Human Regular ACHS SC 01/19/25 22:00 01/19/25 21:24 3 UNITS Dextrose 50 ml UD PRN IV 01/19/25 18:00 Ondansetron HCl 4 mg Q4HP PRN IV 01/19/25 18:00 Docusate Sodium 100 mg BIDPRN PRN PO 01/19/25 18:00 Morphine Sulfate 2 mg Q4HPRN PRN IV 01/19/25 18:00 Enoxaparin Sodium 40 mg DAILY SC 01/19/25 18:00 Nitroglycerin 0.4 mg Q5MINP PRN SL 01/19/25 18:00 Metoprolol Succinate 25 mg BID PO 01/19/25 22:00 01/19/25 21:18 25 MG Pantoprazole Sodium 40 mg DAILY IV 01/20/25 10:00 01/20/25 11:21 40 MG Furosemide 40 mg DAILY IV 01/20/25 10:00 01/20/25 11:21 40 MG Ceftriaxone Sodium 50 ml @ 100 mls/hr DAILY@09 IV 01/21/25 09:00 Examination Physical examination: General Appearance: Alert, Oriented X2, Cooperative,mild distress HEENT: Atraumatic, PERRLA, EOMI, Mucous membrane moist/pink Respiratory: Clear to auscultation, Normal air movement Cardiovascular: Irregular rhythm with controlled rate, Normal S1, Normal S2, No murmurs, no chest wall tenderness Abdominal: Normal bowel sounds, Soft, No tenderness, No hepatospenomegaly, No masses Extremities: No clubbing, No cyanosis, No edema, Normal pulses, No tenderness/swelling Skin: No rashes, No breakdown, No significant lesion Neuro: Bed bound, Normal speech, Strength at 5/4 X4 ext, Normal tone, Sensation intact, grossly intact cranial nerves Psych/Mental Status: Mental status NL, Mood NL laboratory and microbiology Laboratory Tests 01/20/25 04:33 Test 01/20/25 04:33 Range/Units Serum Glucose 134 H 74-106 mg/dL Labs and/or images reviewed: Labs reviewed by me, Image(s) reviewed by me Problem List/Assessment/Plan Problem List/Assessment/Plan Assessment and plan: # Intractable abdominal Pain and nausea likely due to constipation # SIRS/Sepsis # Lactic acidosis likely from dehydration # possible community acquired Gram-positive/ Gram-negative pneumonia - CT abdomen pelvis demonstrated large volume stool in the rectum - CxR demonstrated evidence for bilateral effusions and bilateral pneumonia. - MiraLax powder 17 g p.o. b.i.d. - IV normal saline bolus given - IV ceftriaxone 1 g daily and IV doxycycline 100 mg b.i.d. # New onset AFib with RVR and secondary hypercoagulable state # NSTEMI type 2 secondary to above # Hypertensive heart disease # Possible acute on chronic systolic/diastolic heart failure - [id number] score 5 - Patient's daughter was counseled regarding the risk and benefit of continuing NOAC therapy to prevent stroke and and family would like to hold off on NOAC therapy at this time. - IV Lasix 40 mg daily - Metoprolol succinate 25 mg p.o. b.i.d., aspirin 81 mg daily and atorvastatin 40 mg at HS - Pending echo # Acute complicated cystitis # History of elevated PSA - Pending urine bacterial culture - IV ceftriaxone 1 g daily # Chronic hypothyroidism - Levothyroxine 75 mcg daily # Newly diagnosed dementia likely Alzheimer's # PUD prophylaxis - Protonix 40 mg IV daily # DVT prophylaxis - Lovenox 40 mg sc daily Goal of could not be discussed as patient is not oriented x3 Plan discussed with Dr. Thompson Plan discussed with: Patient, Other My Orders My Orders Orders - AMINATA FIERRO RESIDENT Procedure Category Date Status Time Insert Campbell Catheter PAPITO 01/20/25 In Process 08:23 Strict I & O PAPITO 01/20/25 In Process 08:23 Maintain Fluid PAPITO 01/20/25 In Process Restrictions 08:23 Furosemide Injection PHA 01/20/25 In Process (Lasix Injection) 10:00 Ceftriaxone 1gm/50ml PHA 01/21/25 In Process D5w (Rocephin) 09:00 * Cardiology Consult CONS 01/20/25 Transmitted 09:53 Psa Total+% Free LAB 01/20/25 In Process 09:56 Urine Bacterial ISHMAEL 01/20/25 In Process Culture 10:13 Date of Service: Jan 20, 2025 Billing Provider: LALO THOMPSON MD Common Visit Codes: [id number] INP/OBS CARE(HIGH) Secondary Visit Codes: [id number] CARE PLAN 30 MINUTES AMINATA FIERRO RESIDENT Jan 20, 2025 11:54 LALO THOMPSON MD Jan 20, 2025 17:25
[2025-01-20] MEDS: DOXYCYCLINE 100MG/100ML 100 ML IV SCH (17:11)
[2025-01-20] MEDS ORDERED: ENOXAPARIN SOD 80 MG/0.8ML SYRINGE SC SCH (18:04)
[2025-01-20] MEDS: ENOXAPARIN SOD 80 MG/0.8ML SYRINGE SC SCH (18:15)
[2025-01-20] MEDS: MAGNESIUM SULFATE 1GM/100ML 100 ML IV ONE (20:32)
[2025-01-21] VITALS (7 sets, daily range): BP systolic 122–133; BP diastolic 79–86; PULSE 62–83; RESP 16–20; TEMP 97.3–97.9; O2SAT 90–99
[2025-01-21 06:57] LABS: Basophils # (auto) 0.1 10 ^3/uL (0-0.2); Basophils % (auto) 0.9 % (0.0-2.0); Eosinophils # (auto) 0.1 10 ^3/uL (0-0.8); Hemoglobin 13.7 g/dL (13.5-17.5); Lymphocytes # (auto) 1.1 10 ^3/uL (0.4-5.4); Nucleated Red Blood Cells % 0.2 %
[2025-01-21 06:59] LABS: Eosinophils % (auto) 1.7 % (0.0-7.0); Hematocrit 41.2 % (41.0-53.0); Lymphocytes % (auto) 20.5 % (10.0-50.0); Mean Corpuscular Hemoglobin 34.3 pg (28.0-32.0); Mean Corpuscular Hgb Conc. 33.3 g/dL (32.0-36.0); Mean Corpuscular Volume 103.1 fL (80.0-100.0); Monocytes # (auto) 0.5 10 ^3/uL (0-1.3); Neutrophils # (auto) 3.7 10 ^3/uL (1.6-8.6); Neutrophils % (auto) 66.9 % (37.0-80.0); Platelet Count (auto) 118 10^3/uL (140-450); Red Cell Distribution Width 14.4 % (11.8-14.3); White Blood Cell 5.5 10^3/uL (4.4-10.8)
[2025-01-21 07:00] LABS: Anion Gap 10 (5-15); Carbon Dioxide 24 mmol/L (20-31); Sodium 142 mmol/L (136-145)
[2025-01-21 07:02] LABS: Calcium 8.7 mg/dL (8.7-10.4); Chloride 108 mmol/L (98-107)
[2025-01-21 07:06] LABS: BUN/Creatinine Ratio 22.2 (10.0-20.0)
[2025-01-21 07:09] LABS: Blood Urea Nitrogen 24 mg/dL (9-23); Glucose 74 mg/dL (74-106)
[2025-01-21 08:07] LABS: PSA Free 0.55 ng/mL; Prostate Specific Antigen 2.7 ng/mL (0.0-4.0)
[2025-01-21] MEDS: cefTRIAXone 1GM/50ML D5W 50 ML IV SCH (10:38)
--- NOTE | 2025-01-21 18:17 | DVHPNRES ---
Progress Note Date Seen: Jan 21, 2025 Resident Creating Document: AMINATA FIERRO RESIDENT Medical Necessity Reason Pt with a Central, PICC or Fol: Yes Subjective Review of Systems Patient was seen and examined on the bedside. He is alert oriented x2 and daughter was on the bedside. Spoke with the daughter pros and cons of oral NOAC therapy and daughter agrees to continue NOAC after discharge. Possible DC tomorrow Objective vital signs Vital Sign Date Time Temp Pulse Resp B/P (MAP) Pulse Ox O2 Delivery O2 Flow Rate FiO2 01/21/25 16:44 97.9 62 17 130/80 (97) 92 97.9 01/21/25 08:00 Room Air* 0 21 Total Intake and Output 01/20/25 01/20/25 01/21/25 15:00 23:00 07:00 Intake Total 554 ml 500 ml Output Total 850 ml 200 ml Balance -296 ml 300 ml medications Current Medications Medications Dose Ordered Sig/Moni Route Start Time Stop Time Status Last Admin Dose Admin Aspirin 81 mg DAILY PO 01/20/25 10:00 Polyethylene Glycol 17 gm BID PO 01/19/25 22:00 01/20/25 21:45 17 GM Atorvastatin Calcium 40 mg HS PO 01/19/25 22:00 01/20/25 21:45 40 MG Levothyroxine Sodium 75 mcg DAILY PO 01/20/25 10:00 Diagnostic Test (Pha) 1 strip ACHS 01/19/25 22:00 01/21/25 16:15 1 STRIP Insulin Human Regular ACHS SC 01/19/25 22:00 01/20/25 22:02 4 UNITS Dextrose 50 ml UD PRN IV 01/19/25 18:00 Ondansetron HCl 4 mg Q4HP PRN IV 01/19/25 18:00 Docusate Sodium 100 mg BIDPRN PRN PO 01/19/25 18:00 Morphine Sulfate 2 mg Q4HPRN PRN IV 01/19/25 18:00 Nitroglycerin 0.4 mg Q5MINP PRN SL 01/19/25 18:00 Metoprolol Succinate 25 mg BID PO 01/19/25 22:00 01/20/25 21:46 25 MG Pantoprazole Sodium 40 mg DAILY IV 01/20/25 10:00 01/21/25 10:38 40 MG Furosemide 40 mg DAILY IV 01/20/25 10:00 01/21/25 10:38 40 MG Ceftriaxone Sodium 50 ml @ 100 mls/hr DAILY@09 IV 01/21/25 09:00 01/21/25 10:38 100 MLS/HR Doxycycline Hyclate 100 ml @ 50 mls/hr Q12H IV 01/20/25 16:00 01/21/25 17:19 50 MLS/HR Enoxaparin Sodium 70 mg Q12H SC 01/20/25 18:15 01/21/25 17:20 70 MG Examination Physical examination: General Appearance: Alert, Oriented X2, Cooperative,mild distress HEENT: Atraumatic, PERRLA, EOMI, Mucous membrane moist/pink Respiratory: Clear to auscultation, Normal air movement Cardiovascular: Irregular rhythm with controlled rate, Normal S1, Normal S2, No murmurs, no chest wall tenderness Abdominal: Normal bowel sounds, Soft, No tenderness, No hepatospenomegaly, No masses Extremities: No clubbing, No cyanosis, No edema, Normal pulses, No tenderness/swelling Skin: No rashes, No breakdown, No significant lesion Neuro: Bed bound, Normal speech, Strength at 5/4 X4 ext, Normal tone, Sensation intact, grossly intact cranial nerves Psych/Mental Status: Mental status NL, Mood NL laboratory and microbiology Laboratory Tests 01/21/25 05:53 Test 01/21/25 05:53 Range/Units Serum Glucose 74 74-106 mg/dL Microbiology Date/Time Source Procedure Growth Status 01/20/25 08:30 Urine - Catheterized Urine Culture - Preliminary Resulted Labs and/or images reviewed: Labs reviewed by me, Image(s) reviewed by me Problem List/Assessment/Plan Problem List/Assessment/Plan Assessment and plan: # Intractable abdominal Pain and nausea likely due to constipation # SIRS/Sepsis # Lactic acidosis likely from dehydration # possible community acquired Gram-positive/ Gram-negative pneumonia - CT abdomen pelvis demonstrated large volume stool in the rectum - CxR demonstrated evidence for bilateral effusions and bilateral pneumonia. - MiraLax powder 17 g p.o. b.i.d. - IV normal saline bolus given - IV ceftriaxone 1 g daily and IV doxycycline 100 mg b.i.d. # New onset AFib with RVR and secondary hypercoagulable state # NSTEMI type 2 secondary to above # Hypertensive heart disease # Possible acute on chronic systolic/diastolic heart failure - [id number] score 5 - IV Lasix 40 mg daily - Metoprolol succinate 25 mg p.o. b.i.d., aspirin 81 mg daily and atorvastatin 40 mg at HS - Lovenox 70 mg sc b.i.d. - Pending echo # Acute complicated cystitis # History of elevated PSA - Pending urine bacterial culture - IV ceftriaxone 1 g daily - Recent PSA study revealed normal limit. # Chronic hypothyroidism - Levothyroxine 75 mcg daily # Newly diagnosed dementia likely Alzheimer's # PUD prophylaxis - Protonix 40 mg IV daily # DVT prophylaxis - Lovenox 40 mg sc daily Goal of could not be discussed as patient is not oriented x3 Plan discussed with Dr. Thompson Plan discussed with: Patient, Other My Orders My Orders Orders - AMINATA FIERRO Procedure Category Date Status Time * Parking Meter Collector CONS 01/21/25 Transmitted Consult Consistent DIET 01/21/25 Transmitted Carb(Ccho)Diabetes Breakfast Dietary Evaluation Review Comments: 1) liberalizing to CCHO 75gm diet if PO intake <50% 2) Glucerna 240ml BID (ordered per [facility]NS protoco) 3) Continue current plan of care Expected Outcomes/Goals: Pt will meet 75% estimated needs Fu 3-5 days Date of Service: Jan 21, 2025 Billing Provider: LALO THOMPSON MD Common Visit Codes: [id number] INP/OBS CARE(HIGH) AMINATA FIERRO RESIDENT Jan 21, 2025 18:17 LALO THOMPSON MD Jan 21, 2025 19:21
--- NOTE | 2025-01-21 18:37 | DVHPN2 ---
Consult Progress Note Subjective Other Systems: Patient in atrial fibrillation on monitoring manager with controlled rate. Patient more awake and alert today, periods of confusion Objective vital signs Vital Sign Date Time Temp Pulse Resp B/P (MAP) Pulse Ox O2 Delivery O2 Flow Rate FiO2 01/21/25 16:44 97.9 62 17 130/80 (97) 92 97.9 01/21/25 08:00 Room Air* 0 21 Total Intake and Output 01/20/25 01/20/25 01/21/25 15:00 23:00 07:00 Intake Total 554 ml 500 ml Output Total 850 ml 200 ml Balance -296 ml 300 ml medications Current Medications Medications Dose Ordered Sig/Moni Route Start Time Stop Time Status Last Admin Dose Admin Aspirin 81 mg DAILY PO 01/20/25 10:00 Polyethylene Glycol 17 gm BID PO 01/19/25 22:00 01/20/25 21:45 17 GM Atorvastatin Calcium 40 mg HS PO 01/19/25 22:00 01/20/25 21:45 40 MG Levothyroxine Sodium 75 mcg DAILY PO 01/20/25 10:00 Diagnostic Test (Pha) 1 strip ACHS 01/19/25 22:00 01/21/25 16:15 1 STRIP Insulin Human Regular ACHS SC 01/19/25 22:00 01/20/25 22:02 4 UNITS Dextrose 50 ml UD PRN IV 01/19/25 18:00 Ondansetron HCl 4 mg Q4HP PRN IV 01/19/25 18:00 Docusate Sodium 100 mg BIDPRN PRN PO 01/19/25 18:00 Morphine Sulfate 2 mg Q4HPRN PRN IV 01/19/25 18:00 Nitroglycerin 0.4 mg Q5MINP PRN SL 01/19/25 18:00 Metoprolol Succinate 25 mg BID PO 01/19/25 22:00 01/20/25 21:46 25 MG Pantoprazole Sodium 40 mg DAILY IV 01/20/25 10:00 01/21/25 10:38 40 MG Furosemide 40 mg DAILY IV 01/20/25 10:00 01/21/25 10:38 40 MG Ceftriaxone Sodium 50 ml @ 100 mls/hr DAILY@09 IV 01/21/25 09:00 01/21/25 10:38 100 MLS/HR Doxycycline Hyclate 100 ml @ 50 mls/hr Q12H IV 01/20/25 16:00 01/21/25 17:19 50 MLS/HR Enoxaparin Sodium 70 mg Q12H SC 01/20/25 18:15 01/21/25 17:20 70 MG Examination: GENERAL:Abnormal (Generalized weakness), LUNGS:Normal, CVS:Normal, NEURO:Abnormal (Periods of confusion) laboratory and microbiology Laboratory Tests 01/21/25 05:53 Test 01/21/25 05:53 Range/Units Serum Glucose 74 74-106 mg/dL Problem List/Assessment/Plan Problem List/Assessment/Plan Atrial fibrillation, newly diagnosed Sepsis Pneumonia NSTEMI, type II secondary to above Rule out structural heart disease Hypertension Thyroid disease Dementia Plan/Recommendation (Dr. Arambula): * Transthoracic echocardiogram to evaluate cardiac function * [id number] VASc score: 5 points, HAS-BLED score: 2 points * Therapeutic Lovenox while inpatient. Monitor H&h, Plt count; consider NOAC if family agreeable * Beta-elham for rate control * Avoid antiarrhythmic agents given unknown duration of AFib * Monitor and replete electrolytes as needed, keep potassium greater than four and magnesium greater than two * Close Cardiac surveillance At the time of assessment, patient is more alert today with periods of confusion. He denies any cardiac symptoms at time of assessment. Elevated troponin level likely secondary to pneumonia and sepsis. The patient was also noted to be in atrial fibrillation. Had a long conversation with the patient's daughter yesterday who denies that the patient has any history of atrial fibrillation despite the patient being on Eliquis in the past. Family reported that the Eliquis was discontinued for unknown reasons. Yesterday, the patient's family wanted to hold off on NOAC therapy given the patient is a high risk for bleeding due to his confusion and high risk for falls. Today, the bedside RN reports that the patient's family now would like patient to start NOAC therapy. Patient's family not at bedside at time of assessment. We will proceed to have this conversation with the patient's family tomorrow. In the meantime, continue with inpatient therapeutic Lovenox as tolerated and closely monitor patient's hemoglobin hematocrit and platelet count. Thank you for allowing us to care for this patient. Please call with any questions or concerns. This medical document was created using an electronic medical record system with voice recognition software and computerized dictation system. Although this document has been carefully reviewed, there might still be some phonetic and typographical errors. Occasional wrong-word or ``sound-alike substitutions may have occurred due to the inherent limitations of voice recognition software. These areas are purely typographical due to imperfections of the software programs and do not reflect any compromise in the patient's medical care. Please read the chart carefully and recognize, using context, where these substitutions have occurred. Plan discussed with: Other (Bedside RN) Dietary Evaluation Review Comments: 1) liberalizing to CCHO 75gm diet if PO intake <50% 2) Glucerna 240ml BID (ordered per ONS protoco) 3) Continue current plan of care Expected Outcomes/Goals: Pt will meet 75% estimated needs Fu 3-5 days Date of Service: Jan 21, 2025 Billing Provider: ADALBERTO KEY Common Visit Codes: [id number] INP/OBS CARE(HIGH) ADALBERTO KEY Jan 21, 2025 18:37
[2025-01-22] VITALS (8 sets, daily range): BP systolic 117–147; BP diastolic 65–87; PULSE 52–84; RESP 17–18; TEMP 97.2–98.1; O2SAT 94–99
[2025-01-22 07:08] LABS: Basophils # (auto) 0.1 10 ^3/uL (0-0.2); Basophils % (auto) 1.3 % (0.0-2.0); Eosinophils # (auto) 0.1 10 ^3/uL (0-0.8); Mean Corpuscular Hgb Conc. 34.8 g/dL (32.0-36.0); Neutrophils # (auto) 3.1 10 ^3/uL (1.6-8.6); White Blood Cell 5.1 10^3/uL (4.4-10.8)
[2025-01-22 07:10] LABS: Eosinophils % (auto) 2.6 % (0.0-7.0); Hematocrit 37.1 % (41.0-53.0); Hemoglobin 12.9 g/dL (13.5-17.5); Lymphocytes # (auto) 1.2 10 ^3/uL (0.4-5.4); Lymphocytes % (auto) 24.3 % (10.0-50.0); Mean Corpuscular Hemoglobin 34.3 pg (28.0-32.0); Mean Corpuscular Volume 98.4 fL (80.0-100.0); Monocytes # (auto) 0.6 10 ^3/uL (0-1.3); Monocytes % (auto) 10.9 % (0.0-12.0); Neutrophils % (auto) 60.9 % (37.0-80.0); Nucleated Red Blood Cells % 0.2 %; Platelet Count (auto) 99 10^3/uL (140-450); Red Blood Cells 3.77 10^6/uL (4.5-5.90); Red Cell Distribution Width 14.5 % (11.8-14.3)
[2025-01-22 07:11] LABS: Potassium 3.9 mmol/L (3.5-5.1); Sodium 141 mmol/L (136-145)
[2025-01-22 07:12] LABS: Anion Gap 9 (5-15); Calcium 8.9 mg/dL (8.7-10.4)
[2025-01-22 07:15] LABS: Chloride 107 mmol/L (98-107)
[2025-01-22 07:18] LABS: BUN/Creatinine Ratio 24.1 (10.0-20.0)
[2025-01-22 07:20] LABS: Blood Urea Nitrogen 28 mg/dL (9-23); Carbon Dioxide 25 mmol/L (20-31); Glucose 149 mg/dL (74-106)
[2025-01-22] MEDS: MORPHINE SULFATE INJ 2 MG/ml SYRG IV PRN (11:49)
--- NOTE | 2025-01-22 16:05 | DVHPNRES ---
Progress Note Date Seen: Jan 22, 2025 Resident Creating Document: MONICA WHARTON RESIDENT Medical Necessity Reason Pt with a Central, PICC or Fol: Yes Subjective Review of Systems This is a 84-year-old male with past medical history of hypertension, type 2 diabetes mellitus, dementia, hypothyroidism, status post appendectomy presented to the ED via EMS with a chief complaint of abdominal pain and constipation for last 4 days prior to this admission. Patient is confused and not able to give the full history. Patient seen and examined at bedside. Patient still reports mild abdominal tenderness slightly diffuse in the abdomen. We are still waiting for echocardiogram official reports but preliminary looks like a low ejection fraction. We will also wait for cardiology clearance before discharge. Patient states that he is feeling slightly better than compared to admission. Denies fever/chills, chest pain, shortness of breath. ROS Constitutional: Denies weight loss, fever and chills. HEENT: Denies changes in vision and hearing. Respiratory: Denies shortness of breath and cough Cardiovascular: Denies chest discomfort or palpitations GI: Denies abdominal pain, nausea, vomiting and diarrhea. : Denies dysuria and urinary frequency. Musculoskeletal: Denies myalgias and joint pain Skin: Denies rash and pruritus. Neurological: Denies dizziness, headache, vision or hearing problems Objective vital signs Vital Sign Date Time Temp Pulse Resp B/P (MAP) Pulse Ox O2 Delivery O2 Flow Rate FiO2 01/22/25 13:00 98.1 52 17 147/78 (101) 94 98.1 01/22/25 08:00 Room Air* 0 21 Total Intake and Output 01/21/25 01/21/25 01/22/25 15:00 23:00 07:00 Intake Total 50 ml 500 ml 750 ml Output Total 1400 ml 200 ml Balance 50 ml -900 ml 550 ml medications Current Medications Medications Dose Ordered Sig/Moni Route Start Time Stop Time Status Last Admin Dose Admin Aspirin 81 mg DAILY PO 01/20/25 10:00 01/22/25 09:39 81 MG Polyethylene Glycol 17 gm BID PO 01/19/25 22:00 01/22/25 09:40 17 GM Atorvastatin Calcium 40 mg HS PO 01/19/25 22:00 01/21/25 22:37 40 MG Levothyroxine Sodium 75 mcg DAILY PO 01/20/25 10:00 01/22/25 09:39 75 MCG Diagnostic Test (Pha) 1 strip ACHS 01/19/25 22:00 01/22/25 13:03 1 STRIP Insulin Human Regular ACHS SC 01/19/25 22:00 01/22/25 13:08 3 UNITS Dextrose 50 ml UD PRN IV 01/19/25 18:00 Ondansetron HCl 4 mg Q4HP PRN IV 01/19/25 18:00 Docusate Sodium 100 mg BIDPRN PRN PO 01/19/25 18:00 Morphine Sulfate 2 mg Q4HPRN PRN IV 01/19/25 18:00 01/22/25 11:49 2 MG Nitroglycerin 0.4 mg Q5MINP PRN SL 01/19/25 18:00 Metoprolol Succinate 25 mg BID PO 01/19/25 22:00 01/22/25 09:40 25 MG Pantoprazole Sodium 40 mg DAILY IV 01/20/25 10:00 01/22/25 11:48 40 MG Furosemide 40 mg DAILY IV 01/20/25 10:00 01/22/25 11:48 40 MG Ceftriaxone Sodium 50 ml @ 100 mls/hr DAILY@09 IV 01/21/25 09:00 01/22/25 11:47 100 MLS/HR Doxycycline Hyclate 100 ml @ 50 mls/hr Q12H IV 01/20/25 16:00 01/22/25 04:01 50 MLS/HR Enoxaparin Sodium 70 mg Q12H SC 01/20/25 18:15 01/21/25 17:20 70 MG Examination Physical Examination General: Patient alert and oriented x2. Patient following commands. HEENT: Normocephalic, atraumatic, moist mucous membranes Respiratory/pulmonary: Clear lungs bilaterally, no associated crackles or wheezes. Cardiovascular: Irregular heart sounds S1 and S2 with no associated murmurs Abdomen: Abdomen nondistended, there is mild abdominal discomfort diffusely, no masses palpated at this time. Extremities: There is no peripheral edema present at the lower extremities. Peripheral Pulses: 3+ Radial (R). 3+ Radial (L). 3+ Dorsalis pedis (R). 3+ Dorsalis pedis(L) Skin: No rashes or pruritus, there is no sacral edema present at this time. Neurological: Bed bound, Normal speech, Strength at 5/4 X4 ext, Normal tone, Sensation intact, grossly intact cranial nerves laboratory and microbiology Laboratory Tests 01/22/25 05:54 Test 01/22/25 05:54 Range/Units Serum Glucose 149 H 74-106 mg/dL Microbiology Date/Time Source Procedure Growth Status 01/20/25 08:30 Urine - Catheterized Urine Culture - Final Complete Problem List/Assessment/Plan Problem List/Assessment/Plan Assessment/Plan Intractable abdominal Pain and nausea likely due to constipation SIRS/Sepsis Lactic acidosis likely from dehydration possible community acquired Gram-positive/ Gram-negative pneumonia - CT abdomen pelvis demonstrated large volume stool in the rectum - CxR demonstrated evidence for bilateral effusions and bilateral pneumonia. - MiraLax powder 17 g p.o. b.i.d. - IV normal saline bolus given - IV ceftriaxone 1 g daily and IV doxycycline 100 mg b.i.d. New onset AFib with RVR and secondary hypercoagulable state NSTEMI type 2 secondary to above Hypertensive heart disease Possible acute on chronic systolic/diastolic heart failure - [id number] score 5 - IV Lasix 40 mg daily - Metoprolol succinate 25 mg p.o. b.i.d., aspirin 81 mg daily and atorvastatin 40 mg at HS - Lovenox 70 mg sc b.i.d. - Pending echo Acute complicated cystitis History of elevated PSA - Pending urine bacterial culture - IV ceftriaxone 1 g daily - Recent PSA study revealed normal limit. Chronic hypothyroidism - Levothyroxine 75 mcg daily Newly diagnosed dementia likely Alzheimer's PUD prophylaxis - Protonix 40 mg IV daily DVT prophylaxis - Lovenox 40 mg sc daily Goals of care could not be discussed as patient is not oriented x3 Plan discussed with Dr. Thompson Plan discussed with: Patient, Other Dietary Evaluation Review Comments: 1) liberalizing to CCHO 75gm diet if PO intake <50% 2) Glucerna 240ml BID (ordered per ONS protoco) 3) Continue current plan of care Expected Outcomes/Goals: Pt will meet 75% estimated needs Fu 3-5 days Date of Service: Jan 22, 2025 Billing Provider: LALO THOMPSON MD Common Visit Codes: [id number] INP/OBS CARE(HIGH) MONICA WHARTON RESIDENT Jan 22, 2025 16:05 LALO THOMPSON MD Jan 22, 2025 19:46
--- NOTE | 2025-01-22 17:15 | DVHPN2 ---
Consult Progress Note Subjective Other Systems: Patient in atrial fibrillation with controlled rate on monitoring tech. He denies any cardiac symptoms at time of assessment Objective vital signs Vital Sign Date Time Temp Pulse Resp B/P (MAP) Pulse Ox O2 Delivery O2 Flow Rate FiO2 01/22/25 17:00 97.8 84 17 117/74 (88) 96 97.8 01/22/25 08:00 Room Air* 0 21 Total Intake and Output 01/21/25 01/21/25 01/22/25 15:00 23:00 07:00 Intake Total 50 ml 500 ml 750 ml Output Total 1400 ml 200 ml Balance 50 ml -900 ml 550 ml medications Current Medications Medications Dose Ordered Sig/Moni Route Start Time Stop Time Status Last Admin Dose Admin Aspirin 81 mg DAILY PO 01/20/25 10:00 01/22/25 09:39 81 MG Polyethylene Glycol 17 gm BID PO 01/19/25 22:00 01/22/25 09:40 17 GM Atorvastatin Calcium 40 mg HS PO 01/19/25 22:00 01/21/25 22:37 40 MG Levothyroxine Sodium 75 mcg DAILY PO 01/20/25 10:00 01/22/25 09:39 75 MCG Diagnostic Test (Pha) 1 strip ACHS 01/19/25 22:00 01/22/25 13:03 1 STRIP Insulin Human Regular ACHS SC 01/19/25 22:00 01/22/25 13:08 3 UNITS Dextrose 50 ml UD PRN IV 01/19/25 18:00 Ondansetron HCl 4 mg Q4HP PRN IV 01/19/25 18:00 Docusate Sodium 100 mg BIDPRN PRN PO 01/19/25 18:00 Morphine Sulfate 2 mg Q4HPRN PRN IV 01/19/25 18:00 01/22/25 11:49 2 MG Nitroglycerin 0.4 mg Q5MINP PRN SL 01/19/25 18:00 Metoprolol Succinate 25 mg BID PO 01/19/25 22:00 01/22/25 09:40 25 MG Pantoprazole Sodium 40 mg DAILY IV 01/20/25 10:00 01/22/25 11:48 40 MG Ceftriaxone Sodium 50 ml @ 100 mls/hr DAILY@09 IV 01/21/25 09:00 01/22/25 11:47 100 MLS/HR Doxycycline Hyclate 100 ml @ 50 mls/hr Q12H IV 01/20/25 16:00 01/22/25 16:11 50 MLS/HR Enoxaparin Sodium 70 mg Q12H SC 01/20/25 18:15 01/21/25 17:20 70 MG Furosemide 40 mg BID IV 01/22/25 22:00 Examination: GENERAL:Abnormal (Generalized weakness), LUNGS:Normal, CVS:Normal, NEURO:Abnormal (Confused) laboratory and microbiology Laboratory Tests 01/22/25 05:54 Test 01/22/25 05:54 Range/Units Serum Glucose 149 H 74-106 mg/dL Problem List/Assessment/Plan Problem List/Assessment/Plan Atrial fibrillation, newly diagnosed Sepsis Pneumonia NSTEMI, type II secondary to above Rule out structural heart disease Hypertension Thyroid disease Dementia Plan/Recommendation (Dr. Arambula): * Transthoracic echocardiogram to evaluate cardiac function * [id number] VASc score: 5 points, HAS-BLED score: 2 points * Therapeutic Lovenox while inpatient. Monitor H&h, Plt count; consider NOAC if family agreeable. * Beta-elham for rate control * Avoid antiarrhythmic agents given unknown duration of AFib * Monitor and replete electrolytes as needed, keep potassium greater than four and magnesium greater than two * Close Cardiac surveillance Thank you for allowing us to care for this patient. Please call with any questions or concerns. This medical document was created using an electronic medical record system with voice recognition software and computerized dictation system. Although this document has been carefully reviewed, there might still be some phonetic and typographical errors. Occasional wrong-word or ``sound-alike substitutions may have occurred due to the inherent limitations of voice recognition software. These areas are purely typographical due to imperfections of the software programs and do not reflect any compromise in the patient's medical care. Please read the chart carefully and recognize, using context, where these substitutions have occurred. Plan discussed with: Patient Dietary Evaluation Review Comments: 1) liberalizing to CCHO 75gm diet if PO intake <50% 2) Glucerna 240ml BID (ordered per ONS protoco) 3) Continue current plan of care Expected Outcomes/Goals: Pt will meet 75% estimated needs Fu 3-5 days Date of Service: Jan 22, 2025 Billing Provider: ADALBERTO KEY Common Visit Codes: [id number] INP/OBS CARE(HIGH) ADALBERTO KEY STRING LASTER Jan 22, 2025 17:15
[2025-01-22] MEDS: LACTULOSE 20Gm/30ML SOLN PO ONE (17:26)
[2025-01-22] MEDS: FUROSEMIDE 40 MG/4 ML VIAL IV SCH (21:26)
[2025-01-23] VITALS (8 sets, daily range): BP systolic 128–141; BP diastolic 63–89; PULSE 60–77; RESP 16–18; TEMP 97.3–97.6; O2SAT 93–98
[2025-01-23 11:09] LABS: Basophils # (auto) 0 10 ^3/uL (0-0.2); Basophils % (auto) 0.8 % (0.0-2.0); Eosinophils # (auto) 0.1 10 ^3/uL (0-0.8); Eosinophils % (auto) 1.8 % (0.0-7.0); Lymphocytes # (auto) 1.5 10 ^3/uL (0.4-5.4); Lymphocytes % (auto) 26.1 % (10.0-50.0); Mean Corpuscular Hemoglobin 31.3 pg (28.0-32.0); Mean Corpuscular Hgb Conc. 33.4 g/dL (32.0-36.0); Mean Corpuscular Volume 93.8 fL (80.0-100.0); Monocytes # (auto) 0.6 10 ^3/uL (0-1.3); Neutrophils # (auto) 3.4 10 ^3/uL (1.6-8.6); Neutrophils % (auto) 60.3 % (37.0-80.0); Nucleated Red Blood Cells % 0.1 %; Platelet Count (auto) 126 10^3/uL (140-450); Red Cell Distribution Width 14.1 % (11.8-14.3); White Blood Cell 5.7 10^3/uL (4.4-10.8)
[2025-01-23 11:23] LABS: Anion Gap 9 (5-15); Carbon Dioxide 28 mmol/L (20-31); Chloride 103 mmol/L (98-107); Sodium 140 mmol/L (136-145)
[2025-01-23 11:24] LABS: Calcium 9.1 mg/dL (8.7-10.4)
[2025-01-23 11:29] LABS: BUN/Creatinine Ratio 18.5 (10.0-20.0)
[2025-01-23 11:31] LABS: Blood Urea Nitrogen 24 mg/dL (9-23); Glucose 133 mg/dL (74-106); Potassium 3.3 mmol/L (3.5-5.1)
[2025-01-23] MEDS: SODIUM CHL 0.9% 50 ML IV ONE (13:30)
[2025-01-23] MEDS: POTASSIUM CHL 20MEQ/50ML 50 ML IV ONE (13:30)
--- NOTE | 2025-01-23 15:15 | DVHPN2 ---
Consult Progress Note Date Seen: Jan 23, 2025 Subjective Review of Systems: CVS:Normal, RESPIRATORY:Normal, NEURO:Normal Other Systems: Denies any cardiac symptoms. Sitter at bedside Objective vital signs Vital Sign Date Time Temp Pulse Resp B/P (MAP) Pulse Ox O2 Delivery O2 Flow Rate FiO2 01/23/25 12:31 97.6 67 16 140/74 (96) 96 97.6 01/23/25 08:00 Room Air* 0 21 Total Intake and Output 01/22/25 01/22/25 01/23/25 15:00 23:00 07:00 Intake Total 925 ml 400 ml Output Total 800 ml 1000 ml Balance 125 ml -600 ml medications Current Medications Medications Dose Ordered Sig/Moni Route Start Time Stop Time Status Last Admin Dose Admin Aspirin 81 mg DAILY PO 01/20/25 10:00 01/23/25 08:47 81 MG Polyethylene Glycol 17 gm BID PO 01/19/25 22:00 01/22/25 21:25 17 GM Atorvastatin Calcium 40 mg HS PO 01/19/25 22:00 01/22/25 21:25 40 MG Levothyroxine Sodium 75 mcg DAILY PO 01/20/25 10:00 01/23/25 08:46 75 MCG Diagnostic Test (Pha) 1 strip ACHS 01/19/25 22:00 01/23/25 12:03 1 STRIP Insulin Human Regular ACHS SC 01/19/25 22:00 01/23/25 06:12 2 UNITS Dextrose 50 ml UD PRN IV 01/19/25 18:00 Ondansetron HCl 4 mg Q4HP PRN IV 01/19/25 18:00 Docusate Sodium 100 mg BIDPRN PRN PO 01/19/25 18:00 Morphine Sulfate 2 mg Q4HPRN PRN IV 01/19/25 18:00 01/22/25 11:49 2 MG Nitroglycerin 0.4 mg Q5MINP PRN SL 01/19/25 18:00 Metoprolol Succinate 25 mg BID PO 01/19/25 22:00 01/23/25 08:49 25 MG Pantoprazole Sodium 40 mg DAILY IV 01/20/25 10:00 01/23/25 08:47 40 MG Ceftriaxone Sodium 50 ml @ 100 mls/hr DAILY@09 IV 01/21/25 09:00 01/23/25 08:46 100 MLS/HR Doxycycline Hyclate 100 ml @ 50 mls/hr Q12H IV 01/20/25 16:00 01/23/25 03:56 50 MLS/HR Enoxaparin Sodium 70 mg Q12H SC 01/20/25 18:15 01/21/25 17:20 70 MG Furosemide 40 mg BID IV 01/22/25 22:00 01/23/25 08:47 40 MG Examination: LUNGS:Normal, CVS:Normal (A-fib controlled rate), NEURO:Normal laboratory and microbiology Laboratory Tests 01/23/25 10:27 Test 01/23/25 10:27 Range/Units Serum Glucose 133 H 74-106 mg/dL Problem List/Assessment/Plan Problem List/Assessment/Plan Sepsis with PNA Atrial fibrillation, controlled rate, newly diagnosed 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 Arambula) * Transthoracic echocardiogram to evaluate cardiac function * Preliminary EF approximately 25% with large left pleural effusion * Transition to low-dose Eliquis therapy. Discontinue ASA * [id number] VASc score: 5 points, HAS-BLED score: 2 points * Rate control, beta-elham for rate control * Avoid antiarrhythmic agents given unknown duration of AFib * Monitor and replete electrolytes as needed, K>4 and Mg >2 * Close Cardiac surveillance * Repeat CXR Conservative management given advanced age. Thank you for allowing us to care for this patient. Please call with any questions or concerns. This medical document was created using an electronic medical record system with voice recognition software and computerized dictation system. Although this document has been carefully reviewed, there might still be some phonetic and typographical errors. Occasional wrong-word or ``sound-alike substitutions may have occurred due to the inherent limitations of voice recognition software. These areas are purely typographical due to imperfections of the software programs and do not reflect any compromise in the patient's medical care. Please read the chart carefully and recognize, using context, where these substitutions have occurred. Plan discussed with: Patient, Other Dietary Evaluation Review Comments: 1) liberalizing to CCHO 75gm diet if PO intake <50% 2) Glucerna 240ml BID (ordered per ONS protoco) 3) Continue current plan of care Expected Outcomes/Goals: Pt will meet 75% estimated needs Fu 3-5 days Date of Service: Jan 23, 2025 Billing Provider: LATANYA WILSON Cardiology Common Codes: [id number] HOSP CARE(High LATANYA WILSON Jan 23, 2025 15:15
--- NOTE | 2025-01-23 15:36 | DVHPNRES ---
Progress Note Date Seen: Jan 23, 2025 Resident Creating Document: RANDELL MESA RESIDENT Medical Necessity Reason Pt with a Central, PICC or Fol: Yes Subjective Review of Systems This is a 84-year-old male with past medical history of hypertension, type 2 diabetes mellitus, dementia, hypothyroidism, status post appendectomy presented to the ED via EMS with a chief complaint of abdominal pain and constipation for last 4 days prior to this admission. Patient is confused and not able to give the full history. Patient seen and examined at bedside. Patient is alert however not oriented to time place and person. Patient denied fever, chills, chest pain, shortness of breath, any other symptoms . Sitter at bedside area ROS Constitutional: Denies weight loss, fever and chills. HEENT: Denies changes in vision and hearing. Respiratory: Denies shortness of breath and cough Cardiovascular: Denies chest discomfort or palpitations GI: Denies abdominal pain, nausea, vomiting and diarrhea. : Denies dysuria and urinary frequency. Musculoskeletal: Denies myalgias and joint pain Skin: Denies rash and pruritus. Neurological: Denies dizziness, headache, vision or hearing problems Objective vital signs Vital Sign Date Time Temp Pulse Resp B/P (MAP) Pulse Ox O2 Delivery O2 Flow Rate FiO2 01/23/25 12:31 97.6 67 16 140/74 (96) 96 97.6 01/23/25 08:00 Room Air* 0 21 Total Intake and Output 01/22/25 01/22/25 01/23/25 15:00 23:00 07:00 Intake Total 925 ml 400 ml Output Total 800 ml 1000 ml Balance 125 ml -600 ml medications Current Medications Medications Dose Ordered Sig/Moni Route Start Time Stop Time Status Last Admin Dose Admin Polyethylene Glycol 17 gm BID PO 01/19/25 22:00 01/22/25 21:25 17 GM Atorvastatin Calcium 40 mg HS PO 01/19/25 22:00 01/22/25 21:25 40 MG Levothyroxine Sodium 75 mcg DAILY PO 01/20/25 10:00 01/23/25 08:46 75 MCG Diagnostic Test (Pha) 1 strip ACHS 01/19/25 22:00 01/23/25 12:03 1 STRIP Insulin Human Regular ACHS SC 01/19/25 22:00 01/23/25 06:12 2 UNITS Dextrose 50 ml UD PRN IV 01/19/25 18:00 Ondansetron HCl 4 mg Q4HP PRN IV 01/19/25 18:00 Docusate Sodium 100 mg BIDPRN PRN PO 01/19/25 18:00 Morphine Sulfate 2 mg Q4HPRN PRN IV 01/19/25 18:00 01/22/25 11:49 2 MG Nitroglycerin 0.4 mg Q5MINP PRN SL 01/19/25 18:00 Metoprolol Succinate 25 mg BID PO 01/19/25 22:00 01/23/25 08:49 25 MG Pantoprazole Sodium 40 mg DAILY IV 01/20/25 10:00 01/23/25 08:47 40 MG Ceftriaxone Sodium 50 ml @ 100 mls/hr DAILY@09 IV 01/21/25 09:00 01/23/25 08:46 100 MLS/HR Doxycycline Hyclate 100 ml @ 50 mls/hr Q12H IV 01/20/25 16:00 01/23/25 03:56 50 MLS/HR Furosemide 40 mg BID IV 01/22/25 22:00 01/23/25 08:47 40 MG Apixaban 2.5 mg BID PO 01/23/25 22:00 Empaglifozin 10 mg DAILY PO 01/24/25 10:00 Spironolactone 12.5 mg DAILY PO 01/24/25 10:00 Lisinopril 5 mg DAILY PO 01/24/25 10:00 Examination General Appearance: Cooperative. Well developed. Well nourished. NAD Head Exam: Normal inspection Neck Exam: Normal inspection. Non-tender. Normal alignment Pulmonary/Respiratory: Chest non-tender. Clear bilateral breath sounds Cardiovascular/Chest: Regular rate and rhythm. No murmurs. No JVD. Peripheral Pulses: 2+ Radial (R). 2+ Radial (L). 2+ Pedal (R). 2+ Pedal (L) Abdominal Exam: Normal bowel sounds. Soft. Nontender. No hepatospenomegaly. No masses Ankle Exam: Negative ankle edema Lower extremities: Negative lower extremity edema Neuro/Mental Status: Alert, not oriented to place or time. Appropriate upper and lower extremity movement, intact cranial nerves. laboratory and microbiology Laboratory Tests 01/23/25 10:27 Test 01/23/25 10:27 Range/Units Serum Glucose 133 H 74-106 mg/dL Microbiology Date/Time Source Procedure Growth Status 01/20/25 08:30 Urine - Catheterized Urine Culture - Final Complete Problem List/Assessment/Plan Problem List/Assessment/Plan Intractable abdominal Pain and nausea likely due to constipation SIRS/Sepsis Lactic acidosis likely from dehydration possible community acquired Gram-positive/ Gram-negative pneumonia - CT abdomen pelvis demonstrated large volume stool in the rectum - CxR demonstrated evidence for bilateral effusions and bilateral pneumonia. - MiraLax powder 17 g p.o. b.i.d. - IV normal saline bolus given - IV ceftriaxone 1 g daily and IV doxycycline 100 mg b.i.d. Acute HFrEF -IV Lasix 40 mg b.i.d. -metoprolol succinate 25 mg p.o. b.i.d. -spironolactone 12.5 mg p.o. daily -lisinopril 5 mg p.o. daily. -Jardiance 10 mg p.o. daily -cardiology on board with the -echocardiogram: Preliminary 25% ejection fraction New onset AFib with RVR and secondary hypercoagulable state NSTEMI type 2 secondary to above Hypertensive heart disease Possible acute on chronic systolic/diastolic heart failure - [id number] score 5 - IV Lasix 40 mg b.i.d. - Metoprolol succinate 25 mg p.o. b.i.d., aspirin 81 mg daily and atorvastatin 40 mg at HS - Lovenox 70 mg sc b.i.d. Acute complicated cystitis History of elevated PSA - IV ceftriaxone 1 g daily - Recent PSA study revealed normal limit. Prediabetic HGB A1c 6.4% -continue monitor serum glucose. Chronic hypothyroidism - Levothyroxine 75 mcg daily Newly diagnosed dementia likely Alzheimer's PUD prophylaxis - Protonix 40 mg IV daily DVT prophylaxis - Lovenox 40 mg sc daily Plan discussed with Dr. Thompson Plan discussed with: Patient, Other Dietary Evaluation Review Comments: 1) liberalizing to CCHO 75gm diet if PO intake <50% 2) Glucerna 240ml BID (ordered per [facility] protoco) 3) Continue current plan of care Expected Outcomes/Goals: Pt will meet 75% estimated needs Fu 3-5 days Date of Service: Jan 23, 2025 Billing Provider: LALO THOMPSON MD Common Visit Codes: [id number] INP/OBS CARE(HIGH) RANDELL MESA RESIDENT Jan 23, 2025 15:36 LALO THOMPSON MD Jan 24, 2025 09:41
--- NOTE | 2025-01-23 19:18 | DVH ---
EXAM: XY CHEST PORTABLE TECHNIQUE: Single frontal chest radiograph CLINICAL HISTORY: Acute CHF COMPARISON: XY CHEST PORTABLE on DOS: 01/30/24, XY CHEST PORTABLE on DOS: 01/24/24, XY CHEST PORTABLE o n DOS: 05/31/23 Findings/Impression: Frontal chest radiograph demonstrates no acute osseous or superficial soft tissue abnormalities. The trachea is midline. The cardiac silhouette and mediastinum are within normal limits. Pulmonary vascular congestion. Multifocal pneumonia, slightly worse compared to prior. Possible bilateral trace pleural effusions. No pneumothorax.
[2025-01-23] MEDS: APIXABAN 2.5 MG TAB PO SCH (21:45)
[2025-01-24] VITALS (7 sets, daily range): BP systolic 104–144; BP diastolic 6–92; PULSE 53–60; RESP 15–18; TEMP 97–98.1; O2SAT 92–97
[2025-01-24] MEDS ORDERED: METOPROLOL SUCCINATE XL 50 MG TAB PO SCH (08:00)
[2025-01-24 08:10] LABS: Chloride 102 mmol/L (98-107); Potassium 4.7 mmol/L (3.5-5.1); Sodium 140 mmol/L (136-145)
[2025-01-24 08:11] LABS: Anion Gap 6 (5-15)
[2025-01-24 08:16] LABS: BUN/Creatinine Ratio 20.8 (10.0-20.0); Glucose 91 mg/dL (74-106)
[2025-01-24 08:18] LABS: Basophils # (auto) 0.1 10 ^3/uL (0-0.2); Basophils % (auto) 0.9 % (0.0-2.0); Eosinophils # (auto) 0.2 10 ^3/uL (0-0.8); Eosinophils % (auto) 3.5 % (0.0-7.0); Hematocrit 44.2 % (41.0-53.0); Hemoglobin 14.8 g/dL (13.5-17.5); Lymphocytes # (auto) 1.5 10 ^3/uL (0.4-5.4); Lymphocytes % (auto) 26.3 % (10.0-50.0); Mean Corpuscular Hemoglobin 32.3 pg (28.0-32.0); Mean Corpuscular Hgb Conc. 33.4 g/dL (32.0-36.0); Mean Corpuscular Volume 96.7 fL (80.0-100.0); Monocytes # (auto) 0.6 10 ^3/uL (0-1.3); Monocytes % (auto) 10.4 % (0.0-12.0); Neutrophils # (auto) 3.4 10 ^3/uL (1.6-8.6); Neutrophils % (auto) 58.9 % (37.0-80.0); Nucleated Red Blood Cells % 0.2 %; Platelet Count (auto) 102 10^3/uL (140-450); Red Blood Cells 4.57 10^6/uL (4.5-5.90); Red Cell Distribution Width 14.7 % (11.8-14.3); White Blood Cell 5.8 10^3/uL (4.4-10.8)
[2025-01-24 08:21] LABS: Blood Urea Nitrogen 26 mg/dL (9-23); Carbon Dioxide 32 mmol/L (20-31)
[2025-01-24] MEDS: METOPROLOL SUCCINATE XL 50 MG TAB PO SCH (10:00)
--- NOTE | 2025-01-24 10:01 | DVHPN2 ---
Consult Progress Note Date Seen: Jan 24, 2025 Subjective Review of Systems: CVS:Normal, RESPIRATORY:Normal, NEURO:Normal Other Systems: Denies any cardiac symptoms. Sitter at bedside Objective vital signs Vital Sign Date Time Temp Pulse Resp B/P (MAP) Pulse Ox O2 Delivery O2 Flow Rate FiO2 01/24/25 09:07 53 18 124/64 (84) 97 01/24/25 05:00 97.4 97.4 01/23/25 20:00 Room Air* 0 21 Total Intake and Output 01/23/25 01/23/25 01/24/25 15:00 23:00 07:00 Intake Total 50 ml 750 ml 1030 ml Balance 50 ml 750 ml 1030 ml medications Current Medications Medications Dose Ordered Sig/Moni Route Start Time Stop Time Status Last Admin Dose Admin Polyethylene Glycol 17 gm BID PO 01/19/25 22:00 01/22/25 21:25 17 GM Atorvastatin Calcium 40 mg HS PO 01/19/25 22:00 01/23/25 21:44 40 MG Levothyroxine Sodium 75 mcg DAILY PO 01/20/25 10:00 01/23/25 08:46 75 MCG Diagnostic Test (Pha) 1 strip ACHS 01/19/25 22:00 01/24/25 06:21 1 STRIP Insulin Human Regular ACHS SC 01/19/25 22:00 01/23/25 21:58 4 UNITS Dextrose 50 ml UD PRN IV 01/19/25 18:00 Ondansetron HCl 4 mg Q4HP PRN IV 01/19/25 18:00 Docusate Sodium 100 mg BIDPRN PRN PO 01/19/25 18:00 Morphine Sulfate 2 mg Q4HPRN PRN IV 01/19/25 18:00 01/22/25 11:49 2 MG Nitroglycerin 0.4 mg Q5MINP PRN SL 01/19/25 18:00 Pantoprazole Sodium 40 mg DAILY IV 01/20/25 10:00 01/23/25 08:47 40 MG Ceftriaxone Sodium 50 ml @ 100 mls/hr DAILY@09 IV 01/21/25 09:00 01/23/25 08:46 100 MLS/HR Doxycycline Hyclate 100 ml @ 50 mls/hr Q12H IV 01/20/25 16:00 01/24/25 03:57 50 MLS/HR Furosemide 40 mg BID IV 01/22/25 22:00 01/23/25 21:51 40 MG Apixaban 2.5 mg BID PO 01/23/25 22:00 01/23/25 21:45 2.5 MG Empaglifozin 10 mg DAILY PO 01/24/25 10:00 Spironolactone 12.5 mg DAILY PO 01/24/25 10:00 Lisinopril 5 mg DAILY PO 01/24/25 10:00 Magnesium Sulfate/ Dextrose 100 ml @ 100 mls/hr Q1HR IV 01/24/25 08:00 01/24/25 09:59 Metoprolol Succinate 25 mg DAILY PO 01/24/25 08:00 Examination: LUNGS:Abnormal (Bilateral crackles. Off O2), CVS:Normal (A-fib controlled rate), NEURO:Normal laboratory and microbiology Laboratory Tests 01/24/25 05:39 Test 01/24/25 05:39 Range/Units Serum Glucose 91 74-106 mg/dL Problem List/Assessment/Plan Problem List/Assessment/Plan Sepsis with multifocal PNA Atrial fibrillation, controlled rate, newly diagnosed 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 Arambula) * Transthoracic echocardiogram to evaluate cardiac function * Preliminary EF approximately 25% with large left pleural effusion * Continue GDMT for HFrEF and uptitrate as tolerated * Continue low-dose Eliquis therapy. Monitor platelet count * [id number] VASc score: 5 points, HAS-BLED score: 2 points * Rate control, beta-elham for rate control * Avoid antiarrhythmic agents given unknown duration of AFib * Monitor and replete electrolytes as needed, K>4 and Mg >2 * ABX therapy per primary care team * Conservative management given advanced age. Cardiac stable. There is no further cardiac work-up indicated. Kindly call if in need to re-consult. Thank you for allowing us to care for this patient. This medical document was created using an electronic medical record system with voice recognition software and computerized dictation system. Although this document has been carefully reviewed, there might still be some phonetic and typographical errors. Occasional wrong-word or ``sound-alike substitutions may have occurred due to the inherent limitations of voice recognition software. These areas are purely typographical due to imperfections of the software programs and do not reflect any compromise in the patient's medical care. Please read the chart carefully and recognize, using context, where these substitutions have occurred. Plan discussed with: Patient, Other Dietary Evaluation Review Comments: 1) liberalizing to CCHO 75gm diet if PO intake <50% 2) Glucerna 240ml BID (ordered per [facility] protoco) 3) Continue current plan of care Expected Outcomes/Goals: Pt will meet 75% estimated needs Fu 3-5 days Date of Service: Jan 24, 2025 Billing Provider: LATANYA WILSON Cardiology Common Codes: [id number] HOSP CARE(High LATANYA WILSON Jan 24, 2025 10:01
--- NOTE | 2025-01-24 12:35 | DVH ---
Procedure: CT CHEST WITHOUT CONTRAST Reason for study/Clinical History: pleural effusion Comparison Study: None available at time of dictation. TECHNIQUE: Multidetector CT of the chest was performed from the lung apices to the upper abdomen with out the use of intravenous contract. Axial, coronal and sagittal multiplanar reformats were performed . Radiation Dose Information: CT Dose: CTDI volume is 8.95 mGy. Dose-length product is 375.81 mGy*cm The dose indicators for CT are the volume Computed Tomography (CT) Dose Index (CTDIvol) and the Dose Length Product (DLP), and are measured in units of mGy and mGy-cm, respectively. These indicators are not patient dose, but values generated from the CT scanner acquisition factors. The report includes radiation exposure data for exposures received during this examination. FINDINGS: Lower neck: Unremarkable. Lungs: Bilateral lower lobe compressive atelectasis. Right upper lobe airspace consolidation. Heart/Vascular Structures: Cardiomegaly. Coronary artery calcifications. Vascular calcifications of t he aorta. Lymph Nodes: No adenopathy Pleura: Moderate bilateral pleural effusions. Musculoskeletal: No acute osseous abnormality. Osteopenia. Scoliosis. Degenerative changes of the sp ine. Soft tissues: Normal. Upper abdomen: Cholelithiasis. IMPRESSION: Findings are suggestive of CHF/pulmonary edema. Right upper lobe airspace consolidation may represent pneumonia. Radiation optimization: All CT scans at this facility use at least one of these dose optimization jayla hniques: automated exposure control mA and/or kV adjustment per patient size (includes targeted exam s where dose is matched to clinical indication) or iterative reconstruction.
[2025-01-24] MEDS: EMPAGLIFLOZIN 10 MG TAB PO SCH (12:38)
[2025-01-24] MEDS: LISINOPRIL 5 MG TAB PO SCH (12:38)
[2025-01-24] MEDS: SPIRONOLACTONE 25 MG TAB PO SCH (12:39)
[2025-01-24] MEDS ORDERED: POTA-36 PO (12:51)
[2025-01-24] MEDS ORDERED: APIX2.5T PO (12:51)
[2025-01-24] MEDS ORDERED: FURO40TA4 PO (12:51)
[2025-01-24] MEDS ORDERED: DOXY100C79 PO (12:51)
--- NOTE | 2025-01-24 13:02 | DVHDSRES ---
Discharge Summary Date of Admission Resident Creating Document: MONICA WHARTON RESIDENT Jan 19, 2025 at 17:49 Date of Discharge: Jan 24, 2025 Admitting Diagnosis Acute hypoxic respiratory failure and abdominal pain Wounds: No wounds present at this time. Labs/Diagnostic Data: Laboratory Results Test 01/24/25 06:17 01/24/25 05:39 01/21/25 05:53 01/20/25 12:15 POC Glucose 106 mg/dl (70-106) White Blood Count 5.8 10^3/uL (4.4-10.8) Red Blood Count 4.57 10^6/uL (4.5-5.90) Hemoglobin 14.8 g/dL (13.5-17.5) Hematocrit 44.2 % (41.0-53.0) Mean Corpuscular Volume 96.7 fL (80.0-100.0) Mean Corpuscular Hemoglobin 32.3 pg (28.0-32.0) Mean Corpuscular Hemoglobin Concent 33.4 g/dL (32.0-36.0) Red Cell Distribution Width 14.7 % (11.8-14.3) Platelet Count 102 10^3/uL (140-450) Mean Platelet Volume 9.4 fL (6.9-10.8) Neutrophils (%) (Auto) 58.9 % (37.0-80.0) Lymphocytes (%) (Auto) 26.3 % (10.0-50.0) Monocytes (%) (Auto) 10.4 % (0.0-12.0) Eosinophils (%) (Auto) 3.5 % (0.0-7.0) Basophils (%) (Auto) 0.9 % (0.0-2.0) Neutrophils # (Auto) 3.4 10 ^3/uL (1.6-8.6) Lymphocytes # (Auto) 1.5 10 ^3/uL (0.4-5.4) Monocytes # (Auto) 0.6 10 ^3/uL (0-1.3) Eosinophils # (Auto) 0.2 10 ^3/uL (0-0.8) Basophils # (Auto) 0.1 10 ^3/uL (0-0.2) Nucleated Red Blood Cells 0.2 % Sodium Level 140 mmol/L (136-145) Potassium Level 4.7 mmol/L (3.5-5.1) Chloride Level 102 mmol/L (98-107) Carbon Dioxide Level 32 mmol/L (20-31) Anion Gap 6 (5-15) Blood Urea Nitrogen 26 mg/dL (9-23) Creatinine 1.25 mg/dL (0.700-1.30) Glomerular Filtration Rate Calc 57 mL/min (>90) BUN/Creatinine Ratio 20.8 (10.0-20.0) Serum Glucose 91 mg/dL (74-106) Calcium Level 9.0 mg/dL (8.7-10.4) Magnesium Level 1.3 mg/dL (1.6-2.6) B-Type Natriuretic Peptide 865.05 pg/mL (0-100) Hemoglobin A1c 6.4 % A1C (<5.7) Lactic Acid Level 2.0 mmol/L (0.4-2.0) Test 01/20/25 08:30 01/20/25 06:33 01/20/25 04:33 01/19/25 20:09 Urine Color Yellow (Yellow) Urine Clarity Clear (Clear) Urine pH 5.5 (5.0-9.0) Urine Specific Magdalena > 1.035 (1.001-1.035) Urine Protein 2+ (Negative) Urine Ketones Negative (Negative) Urine Blood 2+ /uL (Negative) Urine Nitrite Negative (Negative) Urine Bilirubin Negative (Negative) Urine Urobilinogen 4 mg/dL (Negative) Urine Leukocyte Esterase Negative /uL (Negative) Urine RBC 52 /hpf (0 - 3) Urine Microscopic WBC 9 /HPF (0-3) Urine Squamous Epithelial Cells Few /hpf (<5) Urine Bacteria Few /hpf (None Seen) Urine Mucus Few (None Seen) Urine Glucose Normal mg/dL (Normal) Free Prostate Specific Antigen 0.55 ng/mL (N/A) Percent Free Prostate Specific Ag 20.4 % (.) Prostate Specific Antigen Total 2.7 ng/mL (0.0-4.0) Total Bilirubin 1.0 mg/dL (0.2-1.0) Aspartate Amino Transferase (AST) 33 U/L (13-40) Alanine Aminotransferase (ALT) 29 U/L (7-40) Alkaline Phosphatase 141 U/L (46-116) Total Protein 6.2 g/dL (5.7-8.2) Albumin 3.3 g/dL (3.2-4.8) Troponin I High Sensitivity 112 ng/L (</=54) Test 01/19/25 18:09 01/19/25 10:58 Thyroid Stimulating Hormone (TSH) 2.10 uIU/mL (0.55-4.78) Lipase 23 U/L (12-53) Other Laboratory Tests 01/24/25 05:39 Brief Hx & Hospital Course: This is a 84-year-old male with past medical history of hypertension, type 2 diabetes mellitus, dementia, hypothyroidism, status post appendectomy presented to the ED via EMS with a chief complaint of abdominal pain and constipation for last 4 days prior to this admission. Patient is confused and not able to give the full history. Initial labs were grossly unremarkable but he was showing elevated creatinine and BUN. Echocardiogram was performed showing an LVEF of 25%. Since admission the patient was found on AFib with RVR but patient was not providing pertinent history due to dementia so duration of AFib was completely unclear at that time. Patient was started on anticoagulation with the apixaban 2.5 mg b.i.d. discussions with the family regarding potential risk of bleeding if patient fall down were explained but process of starting anticoagulation and benefits preventing stroke and MIs weight the potential risk. Patient was also started on metoprolol succinate 25 mg daily for rate control. At this time, the patient is on AFib with rate control. We will discharge the patient home since the patient has a strong family which take cares of him closely. Patient was seen and examined at bedside today, patient is tolerating room air saturating above 94%. Patient does not complain of chest pain, shortness of breath, abdominal pain or any other symptoms at this time. We will discharge the patient home with the apixaban 2.5 mg b.i.d., doxycycline 100 mg b.i.d. for three additional days to complete eight days of antibiotic therapy for pneumonia, furosemide 40 mg daily for 30 days and potassium 10 mEq daily for 30 days as well. Patient and family agrees with the plan. ROS unable to obtain from the patient due to Alzheimer's dementia Physical examination General: Patient alert but not oriented due to dementia. Patient following commands. HEENT: Normocephalic, atraumatic, moist mucous membranes Respiratory/pulmonary: Clear lungs bilaterally, no associated crackles or wheezes. Cardiovascular: Normal heart sounds S1 and S2 with no associated murmurs Abdomen: Abdomen nondistended, there is no pain to palpation in any of the abdominal quadrants, no palpable masses. Extremities: There is no peripheral edema present at the lower extremities. Peripheral Pulses: 3+ Radial (R). 3+ Radial (L). 3+ Dorsalis pedis (R). 3+ Dorsalis pedis(L) Skin: No rashes or pruritus, there is no sacral edema present at this time. Neurological: Intact cranial nerves with no focal neurologic deficits Consults/Reason for consult Clinical Pathologist for new onset afib Operations or Procedures Exam: CT CT AB PEL WITH IV CON ONLY History: abdominal pain COMPARISON: None Technique: Multidetector spiral CT of the abdomen and pelvis was performed from lung bases to pubic symphysis. Intravenous contrast was administered during this examination. Portal venous imaging was obtained. Axial, coronal and sagittal multiplanar reformats were performed by the technologist on a separate workstation. Radiation Dose : 1. Abdomen/Pelvis: CTDIvol 11.52mGy, DLP 632.46 mGy*cm. Findings: Lung Bases: Cardiomegaly. Large bilateral pleural effusions. Bilateral lower lobe airspace disease. Liver: The liver is normal in size. No focal lesions. There is reflux of contrast from the heart into the IVC and hepatic veins. Gallbladder and Biliary Tree: Unremarkable Spleen: Unremarkable Pancreas: The pancreas is normal in appearance without focal lesions or abnormal enhancement. Adrenal Glands: Unremarkable Kidneys: No hydronephrosis. Bladder: Unremarkable Bowel: The stomach is grossly normal in appearance. Large volume stool in the rectum. The appendix is not visualized; however, no secondary findings of acute appendicitis identified. Ascites: Absent Lymphadenopathy: No mesenteric, retroperitoneal or periportal lymphadenopathy. Abdominal Wall and Mesentery: Unremarkable. Vasculature: The visualized abdominal aorta is normal in size and caliber. There is calcified atherosclerotic plaque involving the aorta and its branches. Abdominal and pelvic vessels demonstrate normal enhancement. Pelvic Organs: Unremarkable Musculoskeletal: No aggressive focal bony lesions, acute fractures or dislocation. Multilevel degenerative changes of the spine. IMPRESSION: Findings are suggestive of CHF. Large volume stool in the rectum. Radiation optimization: All CT scans at this facility use at least one of these dose optimization techniques: automated exposure control mA and/or kV adjustment per patient size (includes targeted exams where dose is matched to clinical indication) or iterative reconstruction. CHEST RADIOGRAPH Indication: eval for chf Technique: Single frontal view of the chest was obtained Comparison: XY CHEST PORTABLE on DOS: 01/30/24, XY CHEST PORTABLE on DOS: 01/24/24, XY CHEST PORTABLE on DOS: 05/31/[address] examination of the chest of January 2024 Findings: There are bilateral effusions bilateral consolidates and fluid in the right upper lobe. Heart size remains within normal limits there is probable left atrial enlargement in prior CT examination patient had left posterior lower lobe peribronchial thickening. IMPRESSION: Evidence for bilateral effusions and bilateral pneumonia. Follow-up PA and lateral or CT examination may be helpful Procedure: CT CHEST WITHOUT CONTRAST Reason for study/Clinical History: pleural effusion Comparison Study: None available at time of dictation. TECHNIQUE: Multidetector CT of the chest was performed from the lung apices to the upper abdomen without the use of intravenous contract. Axial, coronal and sagittal multiplanar reformats were performed. Radiation Dose Information: CT Dose: CTDI volume is 8.95 mGy. Dose-length product is 375.81 mGy*cm The dose indicators for CT are the volume Computed Tomography (CT) Dose Index (CTDIvol) and the Dose Length Product (DLP), and are measured in units of mGy and mGy-cm, respectively. These indicators are not patient dose, but values generated from the CT scanner acquisition factors. The report includes radiation exposure data for exposures received during this examination. FINDINGS: Lower neck: Unremarkable. Lungs: Bilateral lower lobe compressive atelectasis. Right upper lobe airspace consolidation. Heart/Vascular Structures: Cardiomegaly. Coronary artery calcifications. Vascular calcifications of the aorta. Lymph Nodes: No adenopathy Pleura: Moderate bilateral pleural effusions. Musculoskeletal: No acute osseous abnormality. Osteopenia. Scoliosis. Degenerative changes of the spine. Soft tissues: Normal. Upper abdomen: Cholelithiasis. IMPRESSION: Findings are suggestive of CHF/pulmonary edema. Right upper lobe airspace consolidation may represent pneumonia. Condition at Discharge: Stable Final Diagnosis/Problems List Sepsis likely due to bacterial gram +/- pneumonia possible community acquired Gram-positive/ Gram-negative pneumonia Intractable abdominal Pain and nausea likely due to constipation Lactic acidosis likely from dehydration Acute HFrEF 25% New onset AFib with RVR and secondary hypercoagulable state NSTEMI type 2 secondary to above Hypertensive heart disease Possible acute on chronic systolic heart failure Acute complicated cystitis History of elevated PSA Prediabetic HGB A1c 6.4% Chronic hypothyroidism Newly diagnosed dementia likely Alzheimer's Discharge Disposition: Home Discharge Instruct/Medications Diet: Cardiac 2g Na,low cholest Activity: No Restrictions, As Tolerated Follow Up/Referral: F/U with his PCP in 1 week Medications: Apixaban 2.5 mg b.i.d. Doxycycline 100 mg b.i.d. for three additional days Potassium tablets 10 mEq daily for 30 days Furosemide 40 mg daily for 30 days Continue rest of home medications. Discharge Statement: "Patient was advised to return to the ER or call 911 if any headaches, dizziness, shortness of breath, chest pain, abdominal pain, bleeding, fevers, or worsening of medical condition. Patient was counseled about treatment plan, medications, possible side effects, patientverbalized understanding. All questions were answered to the best of my ability. This discharge took greater then 30 minutes in planning, reviewing documentation, counseling the patient, and discussing with other team members." ASSESSMENT ASSESSMENT Assessment Sepsis likely due to bacterial gram +/- pneumonia possible community acquired Gram-positive/ Gram-negative pneumonia Intractable abdominal Pain and nausea likely due to constipation Lactic acidosis likely from dehydration Acute HFrEF 25% New onset AFib with RVR and secondary hypercoagulable state NSTEMI type 2 secondary to above Hypertensive heart disease Possible acute on chronic systolic heart failure Acute complicated cystitis History of elevated PSA Prediabetic HGB A1c 6.4% Chronic hypothyroidism Newly diagnosed dementia likely Alzheimer's Date of Service: Jan 24, 2025 Billing Provider: LALO CARDOZO MD Common Visit Codes: 21609-XHL/OBS DISCH DAY >30min MONICA WHARTON RESIDENT Jan 24, 2025 13:02 LALO CARDOZO MD Jan 25, 2025 18:12
[2025-01-24] MEDS: MAGNESIUM SULFATE 1GM/100ML 200 ML IV ONE (13:16)
[2025-01-24] MEDS: MAGNESIUM SULFATE 1GM/100ML 100 ML IV SCH (13:57)
== END 2025-01-24 18:06 | disposition home or self-care (01) | DRG 871 ==
LOC: ER 09:31 → EDBD 09:31 → OVERFLOW 17:49 → TELE-CENTR 23:08
PROVIDERS: ADMIT Internal Medicine; ATTEND Emergency Medicine
DX: A41.50 Gram-negative sepsis, unspecified (principal); I21.A1 Myocardial infarction type 2; J15.69 Pneumonia due to other Gram-negative bacteria; I50.43 Acute on chronic combined systolic (congestive) and diastolic (congestive) heart failure; J15.9 Unspecified bacterial pneumonia; E87.21 Acute metabolic acidosis; N30.00 Acute cystitis without hematuria; D68.59 Other primary thrombophilia; K59.00 Constipation, unspecified; I48.91 Unspecified atrial fibrillation; E03.9 Hypothyroidism, unspecified; I11.0 Hypertensive heart disease with heart failure; G30.9 Alzheimer's disease, unspecified; F02.80 Dementia in other diseases classified elsewhere, unspecified severity, without behavioral disturbance, psychotic disturbance, mood disturbance, and anxiety; E86.0 Dehydration; Z79.2 Long term (current) use of antibiotics; Z79.899 Other long term (current) drug therapy; Z79.82 Long term (current) use of aspirin; Z79.1 Long term (current) use of non-steroidal anti-inflammatories (NSAID); Z90.49 Acquired absence of other specified parts of digestive tract; Z83.3 Family history of diabetes mellitus; R73.03 Prediabetes
CPT/HCPCS: 36415; 71045; 71250; 74177; 80048; 80053; 81001; 82962; 83036; 83605; 83690; 83735; 83880; 84154; 84443; 84484; 85025; 87086; 93005; 93306; 97163; G0378; J1815; J2470

== ENCOUNTER → 2025-03-03 | Outpatient (CLI) | payer OTHER ==
[~2025-03-03] MED LIST changes: -ACET-1882 PO; +APIX2.5T PO; -CEPH250C PO; +DOXY100C79 PO; +FURO40TA4 PO; -HYDR12.59 PO; +POTA-36 PO
[2025-03-03 10:59] LABS: Basophils # (auto) 0 10 ^3/uL (0-0.2); Basophils % (auto) 1.1 % (0.0-2.0); Eosinophils # (auto) 0.1 10 ^3/uL (0-0.8); Eosinophils % (auto) 2.6 % (0.0-7.0); Hematocrit 41.6 % (41.0-53.0); Lymphocytes # (auto) 2.2 10 ^3/uL (0.4-5.4); Lymphocytes % (auto) 51.6 % (10.0-50.0); Mean Corpuscular Hgb Conc. 33.5 g/dL (32.0-36.0); Mean Corpuscular Volume 92.5 fL (80.0-100.0); Monocytes # (auto) 0.2 10 ^3/uL (0-1.3); Monocytes % (auto) 4.6 % (0.0-12.0); Neutrophils # (auto) 1.7 10 ^3/uL (1.6-8.6); Neutrophils % (auto) 40.1 % (37.0-80.0); Nucleated Red Blood Cells % 0.1 %; Platelet Count (auto) 101 10^3/uL (140-450); Red Cell Distribution Width 15.8 % (11.8-14.3); White Blood Cell 4.3 10^3/uL (4.4-10.8)
[2025-03-03 11:25] LABS: Alanine Aminotransferase 11 U/L (7-40); Alkaline Phosphatase 90 U/L (46-116); Anion Gap 12 (5-15); Aspartate Aminotransferase 23 U/L (13-40); Bilirubin, Total 0.8 mg/dL (0.2-1.0); Blood Urea Nitrogen 26 mg/dL (9-23); Calcium 9.9 mg/dL (8.7-10.4); Carbon Dioxide 25 mmol/L (20-31); Chloride 103 mmol/L (98-107); Cholesterol 101 mg/dL (< 200); Glucose 134 mg/dL (74-106); HDL Cholesterol 31 mg/dL (40-59); LDL Cholesterol 51 mg/dL (< 100); Sodium 140 mmol/L (136-145); Triglycerides 87 mg/dL (< 150)
[2025-03-03 11:26] LABS: BUN/Creatinine Ratio 21.1 (10.0-20.0)
[2025-03-03 11:30] LABS: Folate (Folic Acid) 20.2 ng/mL (>5.38)
[2025-03-03 11:35] LABS: Uric Acid 8.5 mg/dL (3.7-9.2)
== END | disposition home or self-care (01) ==
LOC: LAB 10:25
PROVIDERS: ATTEND Internal Medicine
DX: E61.2 Magnesium deficiency (principal); E55.9 Vitamin D deficiency, unspecified; D51.9 Vitamin B12 deficiency anemia, unspecified; E78.49 Other hyperlipidemia; E79.0 Hyperuricemia without signs of inflammatory arthritis and tophaceous disease; R94.6 Abnormal results of thyroid function studies; R82.79 Other abnormal findings on microbiological examination of urine; R82.998 Other abnormal findings in urine; R73.09 Other abnormal glucose; R68.89 Other general symptoms and signs; R82.90 Unspecified abnormal findings in urine
CPT/HCPCS: 36415; 80053; 80061; 82306; 82607; 82746; 83036; 84443; 84550; 85025

== ENCOUNTER 2025-05-30 12:48 | Inpatient (IN) | payer OTHER ==
[~2025-05-30] VITALS: Ht 177.8 cm; Wt 74.5 kg
[~2025-05-30 12:48] MED LIST changes: +POTA-228 PO
--- NOTE | 2025-05-30 13:08 | ECG ---
[facility] Test Date: 2025-05-30 Test Time: 13:02:44 Pat Name: MARK GARCIA Department: Room: 0233 Gender: M Yoghurt Maker: : 1940 Requested By: SHAY DYE Order Number: [id number] Reading MD: Alban Arambula Measurements Intervals [place] Rate: 94 P: 0 TX: 0 QRS: 7 QRSD: 94 T: 90 QT: 386 QTc: 483 Interpretive Statements Atrial flutter with predominant 2:1 AV block Borderline low voltage, extremity leads Nonspecific T abnormalities, lateral leads Borderline prolonged QT interval Electronically Signed On 05-31-2025 23:00:26 PDT by Alban Arambula Please click the below link to view image of tracing.
--- NOTE | 2025-05-30 13:16 | ED.PDOC ---
History of Present Illness HPI Comments 84 y/o M, with PMHx of DM, HTN, UTI's, dementia, and thyroid disease presents to the ED for CC of generalized weakness. EMS reports, patient is coming from home where family called d/t patient being more altered than normal and reporting neck pain sudden onset, today (05/30/25). EMS relays, upon arrival to scene patient was found to be hypotensive with a SBP in the 80's''; patient was given 500mL bolus in the field and SBP improved in the 90's. At this time patient is A&Ox2 to name and location only. No other symptoms or modifiers are obtainable at this time. Chief Complaint: General Weakness Time Seen by MD: 13:10 Primary Care Provider: NORBERT Reviewed Notes: Nurses Notes, Slot Technician Notes, Medications, Allergies Allergies: Coded Allergies: NO KNOWN ALLERGIES (Unverified , 05/31/23) Home Meds Active Scripts Apixaban Base (ELIQUIS) 2.5 Mg Tab, 2.5 MG PO BID for 30 Days, #60 TAB Prov:MONICA WHARTON RESIDENT 01/24/25 Potassium Chloride (POTASSIUM CHLORIDE CR) 10 Meq Tb, 1 TAB PO DAILY for 30 Days, #30 TAB 5 Refills Prov:MONICA WHARTON RESIDENT 01/24/25 Doxycycline (Monohydrate) (Doxycycline) 100 Mg Cap, 100 MG PO BID for 3 Days, #6 CAP Prov:MONICA WHARTON RESIDENT 01/24/25 Furosemide (Furosemide) 40 Mg Tab, 1 TAB PO DAILY for 30 Days, #30 TAB 5 Refills Prov:MONICA WHARTON RESIDENT 01/24/25 Polyethylene Glycol 3350 (Miralax) 17 Gm Pow, 17 GM PO BID for 30 Days, #120 POW Prov:LALO CARDOZO MD 02/04/24 Levothyroxine Sodium (Synthroid) 75 Mcg Tab, 1 TAB PO DAILY, #30 TAB 1 Refill Prov:LALO CARDOZO MD 02/04/24 Reported Medications Multiple Vitamin (Multivitamins) Tab, 1 TAB PO DAILY, #90 TAB 3 Refills 01/24/24 Aspirin (Aspirin Low Dose) 81 Mg Tab, 1 TAB PO DAILY 05/31/23 Telmisartan (Telmisartan) 20 Mg Tab, 1 TAB PO DAILY 05/31/23 Pioglitazone Hydrochloride (PIOGLITAZONE HCL) 30 Mg Tab, 1 TAB PO DAILY 05/31/23 Atorvastatin Calcium (ATORVASTATIN CALCIUM) 40 Mg Tab, 1 TAB PO HS 05/31/23 Information Source: Patient, Emergency Med Personnel Mode of Arrival: EMS Severity: Moderate Timing: Hours Duration: Since onset Prehospital treatment: None Past Medical History PAST MEDICAL HISTORY: Dementia, DM, HTN, Thyroid, UTI'S Surgical History: Appendectomy Family History Family History: Reviewed,noncontributory to illness Social History Smoker: Non-Smoker Alcohol: Denies ETOH Use Drugs: Denies Drug Use Lives In: Home Constitutional: reports: weakness; denies: chills, diaphoresis, fatigue, fever, malaise, sweats, others EENTM: denies: blurred vision, double vision, ear bleeding, ear discharge, ear drainage, ear pain, ear ringing, eye pain, eye redness, hearing loss, mouth pain, mouth swelling, nasal discharge, nose bleeding, nose congestion, nose pain, photophobia, tearing, throat pain, throat swelling, voice changes, others Respiratory: denies: cough, hemoptysis, orthopnea, SOB at rest, shortness of breath, SOB with excertion, stridor, wheezing, others Cardiovascular: denies: chest pain, dizzy spells, diaphoresis, Dyspnea on exertion, edema, irregular heart beat, left arm pain, lightheadedness, palpitations, PND, syncope, others Gastrointestinal: denies: abdomen distended, abdominal pain, blood streaked bowels, constipated, diarrhea, dysphagia, difficulty swallowing, hematemesis, melena, nausea, poor appetite, poor fluid intake, rectal bleeding, rectal pain, vomiting, others Genitourinary: denies: burning, dysuria, flank pain, frequency, hematuria, incontinence, penile discharge, penile sore, pain, testicle pain, testicle swelling, urgency, others Neurological: denies: dizziness, fainting, headache, left sided numbness, left sided weakness, numbness, paresthesia, pre-existing deficit, right sided numbness, right sided weakness, seizure, speech problems, tingling, tremors, weakness, others Musculoskeletal: denies: back pain, gout, joint pain, joint swelling, muscle pain, muscle stiffness, neck pain, others Integumetry: denies: bruises, change in color, change in hair/nails, dryness, laceration, lesions, lumps, rash, wounds, others Allergic/Immunocompromised: denies: Difficulty Healing, Frequent Infections, Hives, Itching, others Hematologic/Lymphatic: denies: anemia, blood clots, easy bleeding, easy bruising, swollen glands, others Endocrine: denies: excessive hunger, excessive sweating, excessive thirst, excessive urination, flushing, intolerance to cold, intolerance to heat, unexplained weight gain, unexplained weight loss, others Psychiatric: denies: anxiety, bipolar disorder, depression, hopeless, panic disorder, schizophrenia, sleepless, suicidal, others Unable to Obtain due to: Dementia All Other Systems: Reviewed and Negative Physical Exam General Appearance: Moderate Distress HEENT: Normal ENT Inspection, Pharynx Normal, TMs Normal Neck: Full Range of Motion, Non-Tender, Normal, Normal Inspection Respiratory: Other (Coarse breath sounds) Cardiovascular: No Edema, No JVD, No Murmur, No Gallop, Normal Peripheral Pulses, Regular Rate/Rhythm Breast Exam: Deferred Gastrointestinal: No Organomegaly, Non Tender, No Pulsatile Mass, Normal Bowel Sounds, Soft Genitalia: Deferred Pelvic: Deferred Rectal: Deferred Extremities: No calf tenderness, No pedal edema Musculoskeletal : Apperance: Normal Neurologic: Alert, No Motor Deficits, No Sensory Deficits Cerebellar Function: NOT DONE Reflexes: NOT DONE Skin: Dry, Normal Color, Warm Peripheral Pulses: 3+ Radial (R), 3+ Radial (L) Lymphatic: No Adenopathy Was a procedure done? Was a procedure done?: No Differential Dx Considerations may include: MUSCULOSKELETAL PAIN, UTI, HYPOGLYCEMIA X-Ray, Labs, Meds, VS Vital Signs Date Time Temp Pulse Resp B/P (MAP) Pulse Ox O2 Delivery O2 Flow Rate FiO2 05/30/25 13:11 84 20 109/52 (71) 97 05/30/25 13:02 94 05/30/25 12:51 97.5 115 18 96/51 97 97.5 Lab Test 05/30/25 15:35 Range/Units White Blood Count 6.2 4.4-10.8 10^3/uL Red Blood Count 3.71 L 4.5-5.90 10^6/uL Hemoglobin 13.1 L 13.5-17.5 g/dL Hematocrit 37.4 L 41.0-53.0 % Mean Corpuscular Volume 100.9 H 80.0-100.0 fL Mean Corpuscular Hemoglobin 35.2 H 28.0-32.0 pg Mean Corpuscular Hemoglobin Concent 34.9 32.0-36.0 g/dL Red Cell Distribution Width 15.4 H 11.8-14.3 % Platelet Count 89 L 140-450 10^3/uL Mean Platelet Volume 8.7 6.9-10.8 fL Neutrophils (%) (Auto) 73.2 37.0-80.0 % Lymphocytes (%) (Auto) 17.2 10.0-50.0 % Monocytes (%) (Auto) 7.9 0.0-12.0 % Eosinophils (%) (Auto) 1.2 0.0-7.0 % Basophils (%) (Auto) 0.5 0.0-2.0 % Neutrophils # (Auto) 4.5 1.6-8.6 10 ^3/uL Lymphocytes # (Auto) 1.1 0.4-5.4 10 ^3/uL Monocytes # (Auto) 0.5 0-1.3 10 ^3/uL Eosinophils # (Auto) 0.1 0-0.8 10 ^3/uL Basophils # (Auto) 0 0-0.2 10 ^3/uL Nucleated Red Blood Cells 0.0 % Platelet Estimate Decreased Large Platelets Few Anisocytosis (manual) Slight Jorge Luis Cells Few Sodium Level 140 136-145 mmol/L Potassium Level 4.7 3.5-5.1 mmol/L Chloride Level 106 98-107 mmol/L Carbon Dioxide Level 27 20-31 mmol/L Anion Gap 7 5-15 Blood Urea Nitrogen 21 9-23 mg/dL Creatinine 1.27 0.700-1.30 mg/dL Glomerular Filtration Rate Calc 56 >90 mL/min BUN/Creatinine Ratio 16.5 10.0-20.0 Serum Glucose 142 H 74-106 mg/dL Calcium Level 8.9 8.7-10.4 mg/dL Troponin I High Sensitivity 16 </=54 ng/L [facility] [id number] [facility] [address] Ph: [phone] DIAGNOSTIC IMAGING Diagnostic Imaging Report : [id number] Signed PATIENT: MARK GARCIA ACCT: [id number] UNIT: [id number] : 1940 LOC: ER ROOM / BED: / AGE / SEX: 84 / M ADM STATUS: REG ER SERVICE 1519 ORDERING PHYSICIAN: SHAY DYE MD PROCEDURE(s): CXRP - CHEST PORTABLE REASON: sob ORDER NUMBER(s): [id number], ACCESSION NUMBER(s): [id number] CHEST RADIOGRAPH Indication: sob Technique: XY CHEST PORTABLE COMPARISON: None FINDINGS: The cardiac silhouette is unremarkable. The lungs demonstrate bilateral patchy airspace opacities, most pronounced in the left lower lobe. The pulmonary vasculature is prominent. There is no pleural effusion. There is no pneumothorax. IMPRESSION: As above ATED BY: REGINA RADFORD MD DICTATED DATE/TIME: 05/30/251606 SIGNED BY: REGINA RADFORD MD SIGNED DATE/TIME: 05/30/251606 CC: Patient appropriate. History of dementia. Possibly has lost lot of weight. Placed on oxygen. Chest x-ray reviewed does show pneumonia. Establish intravenous access. Was given Rocephin. Was given azithromycin. Explained to the patient. Continue monitoring. Time of 1ST Reevaluation: 13:40 Reevaluation 1ST: Unchanged Patient Education/Counseling: Diagnosis, Treatment Family Education/Counseling: No Family Present SEPSIS Sepsis Screen Date sepsis recognized/suspect: May 30, 2025 Time Sepsis recognized/suspect: 1251 Recent Procedure: No On Antibiotic Therapy: No Respiratory Rate >20: No Heart Rate >90: Yes Temp<36 C (96.8 F) or >38.3 C: No SBP <90 or MAP <65 mmHG: No New Acute Mental Status Change: No Is the patient on CPAP, BIPAP,: No Physician Orders Urinalysis (05/30/25 15:19) Chest Portable (05/30/25 15:19) Ceftriaxone Ivpb Rocephin (05/30/25 17:15) Vital Signs Date Time Temp Pulse Resp B/P (MAP) Pulse Ox O2 Delivery O2 Flow Rate FiO2 05/30/25 13:11 84 20 109/52 (71) 97 05/30/25 13:02 94 05/30/25 12:51 97.5 115 18 96/51 97 97.5 Laboratory Tests Test 05/30/25 15:35 White Blood Count 6.2 10^3/uL (4.4-10.8) Departure 1 Departure Time of Disposition: 17:04 Impression: Primary Impression: Pneumonia Qualified Codes: J18.9 - Pneumonia, unspecified organism Disposition: ADMITTED INPATIENT Admit to: Med Surg Condition: Guarded Critical Care Note Critical Care Time?: Yes (90 min-critical care time only) Critical care comment: Placed on oxygen Stability Stability form required: No Heart Score Heart Score: Heart Score Response (Comments) Value History Slightly Suspicious 0 EKG Normal 0 Age >65 2 Risk Factors >3 or Hx ASHD 2 Troponin Normal limit 0 Total 4 I personally scribed for SHAY DYE MD ([email or web address]) on 05/30/25 at 13:16. Electronically submitted by Elle Shah ([email or web address]). I personally scribed for SHAY DYE MD ([email or web address]) on 05/30/25 at 13:30. Electronically submitted by Elle Shah ([email or web address]). I personally scribed for SHAY DYE MD ([email or web address]) on 05/30/25 at 16:21. Electronically submitted by Elle Shah ([email or web address]). SHAY DYE MD May 30, 2025 13:16
[2025-05-30 15:58] LABS: Hematocrit 37.4 % (41.0-53.0); Hemoglobin 13.1 g/dL (13.5-17.5); Mean Corpuscular Hemoglobin 35.2 pg (28.0-32.0); Mean Corpuscular Volume 100.9 fL (80.0-100.0); Nucleated Red Blood Cells % 0.0 %
[2025-05-30 16:01] LABS: Chloride 106 mmol/L (98-107); Potassium 4.7 mmol/L (3.5-5.1); Sodium 140 mmol/L (136-145)
[2025-05-30 16:02] LABS: Anion Gap 7 (5-15); Carbon Dioxide 27 mmol/L (20-31)
[2025-05-30 16:03] LABS: Calcium 8.9 mg/dL (8.7-10.4)
--- NOTE | 2025-05-30 16:07 | DVH ---
CHEST RADIOGRAPH Indication: sob Technique: XY CHEST PORTABLE COMPARISON: None FINDINGS: The cardiac silhouette is unremarkable. The lungs demonstrate bilateral patchy airspace opacities, mo st pronounced in the left lower lobe. The pulmonary vasculature is prominent. There is no pleural eff usion. There is no pneumothorax. IMPRESSION: As above
[2025-05-30 16:08] LABS: BUN/Creatinine Ratio 16.5 (10.0-20.0); Blood Urea Nitrogen 21 mg/dL (9-23)
[2025-05-30 16:27] LABS: Glucose 142 mg/dL (74-106)
[2025-05-30 16:54] LABS: Anisocytosis Slight
[2025-05-30] MEDS: cefTRIAXone 1GM/50ML D5W 50 ML IV ONE (17:25)
[2025-05-30] MEDS: AZITHROMYCIN 500MG/ 250ML 250 ML IV ONE (17:49)
[2025-05-30 19:30] VITALS: PULSE 74; RESP 15; O2SAT 100
[2025-05-30] MEDS ORDERED: DEXTROSE (50%) 50ML SYRG IV PRN (19:30)
[2025-05-30] MEDS ORDERED: ONDANSETRON HCL 4 MG/2 ML VIAL IV PRN (19:30)
[2025-05-30] MEDS ORDERED: ACETAMINOPHEN 325 MG TAB PO PRN (19:30)
[2025-05-30] MEDS ORDERED: ALBUTEROL SULF 2.5 MG/0.5ML(0.5%) NEB SOLN NEB PRN (19:30)
[2025-05-30 21:11] VITALS: BP 132/70; PULSE 74; RESP 16; TEMP 97.4; O2SAT 100
[2025-05-30 21:16] VITALS: BP 136/78; PULSE 60; RESP 16; TEMP 97.8; O2SAT 99
[2025-05-30 21:35] VITALS: PULSE 60; RESP 17; O2SAT 99
[2025-05-30] MEDS: ATORVASTATIN 20 MG TAB PO SCH (22:23)
[2025-05-30] MEDS: APIXABAN 2.5 MG TAB PO SCH (22:23)
[2025-05-30 22:24] VITALS: BP 136/78; PULSE 60; RESP 16; TEMP 97.8; O2SAT 99
[2025-05-30] MEDS: ACCU-CHEK COMFORT CURVE STRIP VI SCH (22:24)
[2025-05-30] MEDS: InsuLIN REG 1unit/0.01ml Soln (100units/ml) SC SCH (22:28)
[2025-05-31] VITALS (13 sets, daily range): BP systolic 115–153; BP diastolic 44–80; PULSE 59–111; RESP 16–20; TEMP 97.6–98.2; O2SAT 90–100
--- NOTE | 2025-05-31 01:01 | DVHHP2 ---
History of Present Illness Reason for Visit: Generalized weakness History of Present Illness 84-year-old male presents for evaluation of generalized weakness. Patient is currently alert and oriented x2. Patient's family called EMS for evaluation due to patient becoming progressively weaker and altered since yesterday. Patient was noted to be hypotensive in the field in the 80s and given normal saline bolus improving to low 100s blood pressure. No neurologic focal deficits noted. Past Medical History Diabetes mellitus, hypertension, thyroid,? Dementia Past Surgical History Appendectomy Family History Noncontributory Smoke: No ALCOHOL: none Drugs: None Lives: with Family Review of Systems Review of Systems Review of systems are currently negative otherwise addressed in HPI. Allergies: Coded Allergies: NO KNOWN ALLERGIES (Unverified , 05/31/23) Medications Current Medications Medications Dose Ordered Sig/Moni Route Start Time Stop Time Status Last Admin Dose Admin Patient Own Medication 20 mg DAILY PO 05/31/25 10:00 Apixaban 2.5 mg BID PO 05/30/25 22:00 05/30/25 22:23 2.5 MG Atorvastatin Calcium 40 mg HS PO 05/30/25 22:00 05/30/25 22:23 40 MG Furosemide 40 mg DAILY PO 05/31/25 10:00 Levothyroxine Sodium 75 mcg QAM@0600 PO 05/31/25 06:00 Albuterol 2.5 mg Q6HPRN PRN NEB 05/30/25 19:30 Ceftriaxone Sodium 50 ml @ 100 mls/hr DAILY@09 IV 05/31/25 09:00 Azithromycin 250 ml @ 125 mls/hr DAILY IV 05/31/25 10:00 Diagnostic Test (Pha) 1 strip ACHS 05/30/25 22:00 05/30/25 22:24 1 STRIP Insulin Human Regular ACHS SC 05/30/25 22:00 05/30/25 22:28 2 UNITS Dextrose 50 ml UD PRN IV 05/30/25 19:30 Ondansetron HCl 4 mg Q4HP PRN IV 05/30/25 19:30 Acetaminophen 650 mg Q6HP PRN PO 05/30/25 19:30 Exam Vital Signs Vital Signs Date Time Temp Pulse Resp B/P (MAP) Pulse Ox O2 Delivery O2 Flow Rate FiO2 05/30/25 22:24 97.8 60 16 136/78 (97) 99 97.8 05/30/25 21:11 2.0 28 05/30/25 19:30 Nasal Cannula* Exam Gen: 84-year-old male in mild distress Skin: Warm, dry, normal color and texture, no rash. HEENT: Normocephalic atraumatic, mucous membranes moist and pink. Neck: Cervical and supraclavicular nodes normal without enlargement, trachea is midline, thyroid gland is normal without masses. Pulmonary: Clear to auscultation and percussion bilaterally. Cardiac: Regular rate and rhythm. No murmur Abdomen: Soft, nontender, nondistended, bowel sounds present all 4 quadrants, no guarding, no rigidity, no organomegaly. Extremities: No cyanosis, clubbing, no edema Neuro: Cranial nerves II through XII grossly intact, normal affect and speech, no focal motor deficits. Labs/Xrays ORDERING PHYSICIAN: SHAY DYE MD PROCEDURE(s): CXRP - CHEST PORTABLE REASON: sob ORDER NUMBER(s): [id number], ACCESSION NUMBER(s): [id number] CHEST RADIOGRAPH Indication: sob Technique: XY CHEST PORTABLE COMPARISON: None FINDINGS: The cardiac silhouette is unremarkable. The lungs demonstrate bilateral patchy airspace opacities, most pronounced in the left lower lobe. The pulmonary vasculature is prominent. There is no pleural effusion. There is no pneumothorax. IMPRESSION: As above Labs Test 05/30/25 22:23 05/30/25 15:35 Range/Units POC Glucose 142 H 70-106 mg/dl White Blood Count 6.2 4.4-10.8 10^3/uL Red Blood Count 3.71 L 4.5-5.90 10^6/uL Hemoglobin 13.1 L 13.5-17.5 g/dL Hematocrit 37.4 L 41.0-53.0 % Mean Corpuscular Volume 100.9 H 80.0-100.0 fL Mean Corpuscular Hemoglobin 35.2 H 28.0-32.0 pg Mean Corpuscular Hemoglobin Concent 34.9 32.0-36.0 g/dL Red Cell Distribution Width 15.4 H 11.8-14.3 % Platelet Count 89 L 140-450 10^3/uL Mean Platelet Volume 8.7 6.9-10.8 fL Neutrophils (%) (Auto) 73.2 37.0-80.0 % Lymphocytes (%) (Auto) 17.2 10.0-50.0 % Monocytes (%) (Auto) 7.9 0.0-12.0 % Eosinophils (%) (Auto) 1.2 0.0-7.0 % Basophils (%) (Auto) 0.5 0.0-2.0 % Neutrophils # (Auto) 4.5 1.6-8.6 10 ^3/uL Lymphocytes # (Auto) 1.1 0.4-5.4 10 ^3/uL Monocytes # (Auto) 0.5 0-1.3 10 ^3/uL Eosinophils # (Auto) 0.1 0-0.8 10 ^3/uL Basophils # (Auto) 0 0-0.2 10 ^3/uL Nucleated Red Blood Cells 0.0 % Platelet Estimate Decreased Large Platelets Few Anisocytosis (manual) Slight [place] Cells Few Sodium Level 140 136-145 mmol/L Potassium Level 4.7 3.5-5.1 mmol/L Chloride Level 106 98-107 mmol/L Carbon Dioxide Level 27 20-31 mmol/L Anion Gap 7 5-15 Blood Urea Nitrogen 21 9-23 mg/dL Creatinine 1.27 0.700-1.30 mg/dL Glomerular Filtration Rate Calc 56 >90 mL/min BUN/Creatinine Ratio 16.5 10.0-20.0 Serum Glucose 142 H 74-106 mg/dL Calcium Level 8.9 8.7-10.4 mg/dL Troponin I High Sensitivity 16 </=54 ng/L SEPSIS Sepsis Screen Date sepsis recognized/suspect: May 30, 2025 Time Sepsis recognized/suspect: 2000 Recent Procedure: No On Antibiotic Therapy: No Respiratory Rate >20: No Heart Rate >90: No Temp<36 C (96.8 F) or >38.3 C: No SBP <90 or MAP <65 mmHG: No New Acute Mental Status Change: Yes Is the patient on CPAP, BIPAP,: No Physician Orders Electrocardigram (05/30/25 17:05) (Nf) Telmisartan (05/31/25 10:00) Apixaban (Eliquis) (05/30/25 22:00) Atorvastatin (Lipitor) (05/30/25 22:00) Furosemide Tablet (Lasix Tablet) (05/31/25 10:00) Levothyroxine Tablet (Synthroid Tablet) (05/31/25 06:00) Albuterol Medneb (Ventolin Medneb) (05/30/25 19:30) Ceftriaxone 1gm/50ml D5w (Rocephin) (05/31/25 09:00) Azithromycin 500mg/ 250ml (Zithromax 50 (05/31/25 10:00) Basic Metabolic Panel (05/31/25 04:00) Glucose Blood (Accu-Chek Comfort Curve T (05/30/25 22:00) Insulin R (Human) (Insulin R) (05/30/25 22:00) Dextrose 50% Syringe (05/30/25 19:30) Ondansetron Hcl (Zofran) (05/30/25 19:30) Complete Blood Count (05/31/25 04:00) Cardiac Diet-2gna,Lofat,Lochol (05/31/25 Breakfast) Condition: Stable (05/30/25 19:26) Acetaminophen Tablet (Tylenol Tablet) (05/30/25 19:30) Bedrest With Bathroom Privileg (05/30/25 19:26) Admit (05/30/25 19:51) Lactic Acid W/ Reflex Order (05/31/25 00:54) Vital Signs Date Time Temp Pulse Resp B/P (MAP) Pulse Ox O2 Delivery O2 Flow Rate FiO2 05/30/25 22:24 97.8 60 16 136/78 (97) 99 97.8 05/30/25 21:11 97.4 74 16 132/70 100 2.0 28 97.4 05/30/25 19:30 74 15 100 Nasal Cannula* 2 28 05/30/25 19:30 97.4 74 15 132/70 (90) 100 97.4 05/30/25 18:00 63 16 140/66 (90) 98 Laboratory Tests Test 05/30/25 15:35 White Blood Count 6.2 10^3/uL (4.4-10.8) Medications Medications Dose Ordered Sig/Moni Route Start Time Stop Time Status Last Admin Dose Admin Apixaban 2.5 mg BID PO 05/30/25 22:00 05/30/25 22:23 2.5 MG Atorvastatin Calcium 40 mg HS PO 05/30/25 22:00 05/30/25 22:23 40 MG Azithromycin 250 ml @ 125 mls/hr ONCE ONCE IV 05/30/25 17:15 05/30/25 19:14 DC 05/30/25 17:49 125 MLS/HR Ceftriaxone Sodium 50 ml @ 100 mls/hr ONCE ONCE IV 05/30/25 17:15 05/30/25 17:44 DC 05/30/25 17:25 100 MLS/HR Diagnostic Test (Pha) 1 strip ACHS 05/30/25 22:00 05/30/25 22:24 1 STRIP Insulin Human Regular ACHS SC 05/30/25 22:00 05/30/25 22:28 2 UNITS Assessment/Plan Assessment/Plan Assessment Community-acquired pneumonia Metabolic encephalopathy Diabetes mellitus Hypertension Thyroid Plan Admit the patient to Med surge to the hospitalist Rocephin/azithromycin Resume home medications Continue treatment per orders. Plan discussed with: Patient My Orders Orders - PREETHI MOYA Procedure Category Date Status Time (Nf) Telmisartan PHA 05/31/25 In Process 10:00 Apixaban (Eliquis) PHA 05/30/25 In Process 22:00 Atorvastatin (Lipitor) PHA 05/30/25 In Process 22:00 Furosemide Tablet PHA 05/31/25 In Process (Lasix Tablet) 10:00 Levothyroxine Tablet PHA 05/31/25 In Process (Synthroid Tablet) 06:00 Albuterol Medneb PHA 05/30/25 In Process (Ventolin Medneb) 19:30 Ceftriaxone 1gm/50ml PHA 05/31/25 In Process D5w (Rocephin) 09:00 Azithromycin 500mg/ PHA 05/31/25 In Process 250ml (Zithromax 50 10:00 Basic Metabolic Panel LAB 05/31/25 Logged 04:00 Glucose Blood PHA 05/30/25 In Process (Accu-Chek Comfort 22:00 Insulin R (Human) PHA 05/30/25 In Process (Insulin R) 22:00 Dextrose 50% Syringe PHA 05/30/25 In Process 19:30 Ondansetron Hcl PHA 05/30/25 In Process (Zofran) 19:30 Complete Blood Count LAB 05/31/25 Logged 04:00 Cardiac DIET 05/31/25 Transmitted Diet-2gna,Lofat,Lochol Breakfast Condition: Stable PAPITO 05/30/25 In Process 19:26 Acetaminophen Tablet PHA 05/30/25 In Process (Tylenol Tablet) 19:30 Bedrest With Bathroom PAPITO 05/30/25 In Process Privileg 19:26 Admit ADMIT 05/30/25 Transmitted 19:51 Lactic Acid W/ Reflex LAB 05/31/25 Verified Order 00:54 Date of Service: May 30, 2025 Billing Provider: PREETHI MOYA Common Visit Codes: [id number] INP/OBS CARE (HIGH) PREETHI MOYA May 31, 2025 01:01
[2025-05-31] MEDS: LEVOTHYROXINE SODIUM 25 MCG TAB PO SCH (05:45)
[2025-05-31 08:00] LABS: Hemoglobin 13.8 g/dL (13.5-17.5); Mean Corpuscular Hemoglobin 34.1 pg (28.0-32.0)
[2025-05-31 08:03] LABS: Chloride 104 mmol/L (98-107); Hematocrit 39.5 % (41.0-53.0); Mean Corpuscular Volume 97.3 fL (80.0-100.0); Nucleated Red Blood Cells % 0.3 %; Potassium 4.0 mmol/L (3.5-5.1); Sodium 141 mmol/L (136-145)
[2025-05-31 08:04] LABS: Anion Gap 12 (5-15); Carbon Dioxide 25 mmol/L (20-31)
[2025-05-31 08:05] LABS: Calcium 9.1 mg/dL (8.7-10.4)
[2025-05-31 08:10] LABS: BUN/Creatinine Ratio 19.8 (10.0-20.0); Blood Urea Nitrogen 21 mg/dL (9-23)
[2025-05-31 08:11] LABS: Glucose 111 mg/dL (74-106)
[2025-05-31] MEDS: TELMISARTAN 20 MG PO SCH (09:05)
[2025-05-31] MEDS: cefTRIAXone 1GM/50ML D5W 50 ML IV SCH (09:05)
[2025-05-31] MEDS: FUROSEMIDE 40 MG TAB PO SCH (09:18)
[2025-05-31] MEDS: AZITHROMYCIN 500MG/ 250ML 250 ML IV SCH (10:28)
[2025-05-31 10:55] LABS: Alanine Aminotransferase 10.0 U/L (7-40); Albumin 3.7 g/dL (3.2-4.8); Alkaline Phosphatase 82.0 U/L (46-116); Bilirubin, Total 0.7 mg/dL (0.2-1.0); Cholesterol 70.0 mg/dL (< 200); Total Protein 6.5 g/dL (5.7-8.2); Triglycerides 70.0 mg/dL (< 150)
[2025-05-31 10:56] LABS: Bilirubin, Direct 0.3 mg/dL (<0.3); HDL Cholesterol 26.0 mg/dL (40-59)
[2025-05-31] MEDS: IPRATROPIUM BROM 0.5 MG/2.5ML INH SOL NEB SCH (12:18)
[2025-05-31] MEDS: ALBUTEROL SULF 2.5 MG/0.5ML(0.5%) NEB SOLN NEB SCH (12:18)
--- NOTE | 2025-05-31 17:12 | DVHPNRES ---
Progress Note Date Seen: May 31, 2025 Resident Creating Document: CIARA KINCAID Medical Necessity Reason Pt with a Central, PICC or Fol: Yes The following are medically ne: Campbell Catheter Subjective Review of Systems 84-year-old male presents for evaluation of generalized weakness. Patient is currently alert and oriented x3. Family patient's family called EMS for evaluation due to patient becoming progressively weaker and altered since yesterday. He has been eating less than normal according to his family. Daughter also states that patient has been complaining of neck and upper back pain. Patient is a poor historian. He was noted to be hypotensive in the field in the 80s, and given normal saline bolus which improved his blood pressure to the 100s. No focal deficits noted. PMH: Diabetes mellitus, hypertension, hypothyroidism, dementia PSH: Appendectomy Family history: Reviewed and noncontributory to the management of this case Social history: Patient lives with family, denies any smoking, alcohol, drugs ROS: Patient was seen by me at the bedside. patient is a poor historian. He only complains of pain in his neck. He has oriented to time place and person but confused. Nurse reported that the patient has urinary incontinence and a bladder scan was done which showed 700 mL fluid retention and urinary catheter was placed. Chest x-ray shows possibility of pneumonia and we are treating him with ceftriaxone, azithromycin, breathing treatments with albuterol and ipratropium bromide. COVID/influenza test, sputum culture, blood culture is pending. Objective vital signs Vital Sign Date Time Temp Pulse Resp B/P (MAP) Pulse Ox O2 Delivery O2 Flow Rate FiO2 05/31/25 13:00 97.7 59 18 125/74 (91) 98 97.7 05/31/25 12:18 Room Air* 0 21 Total Intake and Output 05/30/25 05/30/25 05/31/25 15:00 23:00 07:00 Intake Total 100 ml 240 ml Balance 100 ml 240 ml medications Current Medications Medications Dose Ordered Sig/Moni Route Start Time Stop Time Status Last Admin Dose Admin Patient Own Medication 20 mg DAILY PO 05/31/25 10:00 Apixaban 2.5 mg BID PO 05/30/25 22:00 05/31/25 09:14 2.5 MG Atorvastatin Calcium 40 mg HS PO 05/30/25 22:00 05/30/25 22:23 40 MG Furosemide 40 mg DAILY PO 05/31/25 10:00 05/31/25 09:18 40 MG Levothyroxine Sodium 75 mcg QAM@0600 PO 05/31/25 06:00 05/31/25 05:45 75 MCG Ceftriaxone Sodium 50 ml @ 100 mls/hr DAILY@09 IV 05/31/25 09:00 05/31/25 09:05 100 MLS/HR Azithromycin 250 ml @ 125 mls/hr DAILY IV 05/31/25 10:00 05/31/25 10:28 125 MLS/HR Diagnostic Test (Pha) 1 strip ACHS 05/30/25 22:00 05/31/25 17:00 1 STRIP Insulin Human Regular ACHS SC 05/30/25 22:00 05/31/25 11:30 3 UNITS Dextrose 50 ml UD PRN IV 05/30/25 19:30 Ondansetron HCl 4 mg Q4HP PRN IV 05/30/25 19:30 Acetaminophen 650 mg Q6HP PRN PO 05/30/25 19:30 Ipratropium [place] 0.5 mg Q6HR NEB 05/31/25 12:00 05/31/25 12:18 0.5 MG Albuterol 2.5 mg Q6HR NEB 05/31/25 12:00 05/31/25 12:18 2.5 MG Tamsulosin HCl 0.4 mg QPM PO 05/31/25 18:00 Examination Pt is lying on bed General Appearance: Alert, Oriented X3, Cooperative, Not in acute distress HEENT: Atraumatic, Mucous membranes moist/pink Respiratory: Clear to auscultation, Normal air movement, No added sounds Cardiovascular: Regular rate, Normal S1, Normal S2, No murmurs Abdominal: Active bowel sounds, Soft, no distention, no tenderness Extremities: No edema, Normal pulses, No tenderness/swelling, resting tremor seen in the right hand Skin: No Significant rash, except past surgical scars Neuro: Normal speech, sensorimotor deficits none Psych/Mental Status: Mental status NL, Mood NL Nurse was there as pack room operator during examination laboratory and microbiology Laboratory Tests 05/31/25 05:31 Test 05/31/25 05:31 Range/Units Serum Glucose 111 H 74-106 mg/dL Labs and/or images reviewed: Labs reviewed by me, Image(s) reviewed by me Problem List/Assessment/Plan Problem List/Assessment/Plan #Sepsis due to Acute Gram-positive / negative bacterial pneumonia #Metabolic encephalopathy due to pneumonia versus urinary retention -Ceftriaxone 1 g IV daily -IV azithromycin 500 mg IV daily -Chest x-ray shows: The cardiac silhouette is unremarkable. The lungs demonstrate bilateral patchy airspace opacities, most pronounced in the left lower lobe. The pulmonary vasculature is prominent. There is no pleural effusion. There is no pneumothorax. -Respiratory therapy with albuterol 2.5, ipratropium bromide q.6 scheduled -ESR pending, CRP-0.58 -COVID/influenza tests, pending -sputum culture, pending blood culture, pending -ammonia normal, TSH normal #Acute urinary retention #Urinary incontinence -UA, pending -bladder scan showed 700 mL fluid retained -Campbell's catheter inserted -Tamsulosin 0.4 mg per orally daily # Diabetes mellitus type 2, HbA1c 6.5 Mild sliding scale insulin started #Hypertension -home medication telmisartan 20 mg tab not given as patient's blood pressure is controlled without #Hyperlipidemia -Continue home medication atorvastatin 40 mg HS -lipid profile came back normal today on 05/31 #Dementia, unspecified -Monitor #Hypothyroidism -Levothyroxine 75 mcg p.o. 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 p.o daily - Furosemide 40 mg p.o. daily - strict fluid restriction - I/O Monitor # macrocytic anemia B12 low normal, supplemented GI prophylaxis: Protonix 40 mg IV daily DVT prophylaxis: Lovenox 40 mg subcutaneous daily Diet: cardiac diet Goals of care discussed with the patient's daughter over the phone, translation provided by nurse quiros, for more than 27 minutes: Full code status Case discussed with , patient and nurse. Plan discussed with: Daughter, Other (rn) My Orders My Orders Orders - CIARA KINCAID Procedure Category Date Status Time Covid19 Antigen Evelin LAB 05/31/25 Logged Rapid Influenza A&B LAB 05/31/25 Logged 10:30 Blood Culture ISHMAEL 05/31/25 In Process 10:35 Respiratory Culture ISHMAEL 05/31/25 Logged W/ Gs 10:35 Ipratropium Medneb PHA 05/31/25 In Process (Atrovent Medneb) 12:00 Albuterol Medneb PHA 05/31/25 In Process (Ventolin Medneb) 12:00 Tamsulosin PHA 05/31/25 In Process Hydrochloride (Flomax) 18:00 Insert Campbell Catheter PAPITO 05/31/25 In Process 16:07 Enoxaparin Sodium PHA 06/01/25 Transmitted (Lovenox) 10:00 Pantoprazole PHA 06/01/25 Transmitted (Protonix) 10:00 Date of Service: May 31, 2025 Billing Provider: MARS MCARTHUR MD Common Visit Codes: [id number] INP/OBS CARE(HIGH) CIARA KINCAID RESIDENT May 31, 2025 17:12 SIVA ZULUAGA RESIDENT May 31, 2025 18:45 MARS MCARTHUR MD Jun 02, 2025 00:24
[2025-05-31] MEDS: TAMSULOSIN HYDROCHLORIDE 0.4 MG CAP PO SCH (17:19)
[2025-05-31] MEDS: CYANOCOBALAMIN (B-12) 1000 MCG/1 ML VIAL IM ONE (17:21)
[2025-05-31 18:10] LABS: Urine Protein, UAD Negative (Negative)
[2025-05-31 21:36] LABS: COVID19 ANTIGEN SOFIA FIA NEGATIVE (NEGATIVE)
[2025-06-01] VITALS (15 sets, daily range): BP systolic 88–112; BP diastolic 47–65; PULSE 65–100; RESP 16–20; TEMP 97.4–98.2; O2SAT 84–100
[2025-06-01 06:09] LABS: Hematocrit 34.4 % (41.0-53.0); Hemoglobin 12.2 g/dL (13.5-17.5); Mean Corpuscular Hemoglobin 35.3 pg (28.0-32.0); Mean Corpuscular Volume 99.1 fL (80.0-100.0); Nucleated Red Blood Cells % 0.1 %
[2025-06-01 06:14] LABS: Chloride 105 mmol/L (98-107); Potassium 3.7 mmol/L (3.5-5.1); Sodium 142 mmol/L (136-145)
[2025-06-01 06:15] LABS: Anion Gap 10 (5-15); Calcium 8.7 mg/dL (8.7-10.4); Carbon Dioxide 27 mmol/L (20-31)
[2025-06-01 06:20] LABS: BUN/Creatinine Ratio 25.9 (10.0-20.0); Glucose 89 mg/dL (74-106)
[2025-06-01 06:22] LABS: Blood Urea Nitrogen 29 mg/dL (9-23)
--- NOTE | 2025-06-01 07:46 | ECG ---
[facility]– [place] Test Date: 2025-05-31 Test Time: 15:52:19 Pat Name: MARK GARCIA Department: Room: 0233 A Gender: M Director Of Residential Services: APRIL : 1940 Requested By: SIVA ZULUAGA Order Number: [id number] Reading MD: Alban Arambula Measurements Intervals [place] Rate: 60 P: 0 NM: 0 QRS: -35 QRSD: 96 T: 242 QT: 447 QTc: 447 Interpretive Statements Atrial flutter with predominant 4:1 AV block Left axis deviation Borderline low voltage, extremity leads Borderline repolarization abnormality Electronically Signed On 06-01-2025 22:53:43 PDT by Alban Arambula Please click the below link to view image of tracing.
[2025-06-01] MEDS ORDERED: ENOXAPARIN SOD 40 MG/0.4 ML SYRINGE SC SCH (10:00)
[2025-06-01] MEDS: PANTOPRAZOLE 40 MG/10 ML VIAL INJ IV SCH (10:07)
--- NOTE | 2025-06-01 16:13 | DVH ---
INDICATION: Hematuria TECHNIQUE: Multiple real-time grayscale transabdominal sonographic images along with color and duplex Doppler of the uterus and ovaries were obtained. COMPARISON: None FINDINGS: Bladder contains 87.52 mL of urine Right and left ureteral jets not visualized. Prostate measures 4.18 x 4.25 x 4.66 cm. Volume of the prostate is 43.33 mL. Subsequent color and duplex Doppler interrogation of the ovaries demonstrated symmetric vascular flow to both ovaries, though this does not exclude the possibility of torsion due to the dual blood suppl y. IMPRESSION: 1. Campbell catheter in the bladder. 87 mL of urine in the bladder. Areas debris noted in the dependent portion of the bladder measuring 5.8 x 1.8 x 6.7 cm. 2. No ureteral jets visualized 3. Prostate volume is 43 cc
--- NOTE | 2025-06-01 16:30 | DVHINCON2 ---
Date of service: Jun 01, 2025 Referring Physician Hospitalist Reason for Consultation hematuria/Campbell" History of Present Illness 84 y/o M, with PMHx of DM, HTN, UTI's, dementia, and thyroid disease presents to the ED for CC of generalized weakness. EMS reports, patient is coming from home where family called d/t patient being more altered than normal and reporting neck pain sudden onset, today (05/30/25). EMS relays, upon arrival to scene patient was found to be hypotensive with a SBP in the 80's''; patient was given 500mL bolus in the field and SBP improved in the 90's. At this time patient is A&Ox2 to name and location only. No other symptoms or modifiers are obtainable at this time. Chief Complaint: General Weakness Primary Care Provider: NORBERT Reviewed Notes: Nurses Notes, Special Inspector Notes, Medications, Allergies Allergies: Coded Allergies: NO KNOWN ALLERGIES (Unverified , 05/31/23) Home Meds Active Scripts Apixaban Base (ELIQUIS) 2.5 Mg Tab, 2.5 MG PO BID for 30 Days, #60 TAB Prov:MONICA WHARTON RESIDENT 01/24/25 Potassium Chloride (POTASSIUM CHLORIDE CR) 10 Meq Tb, 1 TAB PO DAILY for 30 Days, #30 TAB 5 Refills Prov:MONICA WHARTON RESIDENT 01/24/25 Doxycycline (Monohydrate) (Doxycycline) 100 Mg Cap, 100 MG PO BID for 3 Days, #6 CAP Prov:MONICA WHARTON RESIDENT 01/24/25 Furosemide (Furosemide) 40 Mg Tab, 1 TAB PO DAILY for 30 Days, #30 TAB 5 Refills Prov:MONICA WHARTON RESIDENT 01/24/25 Polyethylene Glycol 3350 (Miralax) 17 Gm Pow, 17 GM PO BID for 30 Days, #120 POW Prov:LALO CARDOZO MD 02/04/24 Levothyroxine Sodium (Synthroid) 75 Mcg Tab, 1 TAB PO DAILY, #30 TAB 1 Refill Prov:LALO CARDOZO MD 02/04/24 Reported Medications Multiple Vitamin (Multivitamins) Tab, 1 TAB PO DAILY, #90 TAB 3 Refills 01/24/24 Aspirin (Aspirin Low Dose) 81 Mg Tab, 1 TAB PO DAILY 05/31/23 Telmisartan (Telmisartan) 20 Mg Tab, 1 TAB PO DAILY 05/31/23 Pioglitazone Hydrochloride (PIOGLITAZONE HCL) 30 Mg Tab, 1 TAB PO DAILY 05/31/23 Atorvastatin Calcium (ATORVASTATIN CALCIUM) 40 Mg Tab, 1 TAB PO HS 05/31/23 Information Source: Patient, Emergency Med Personnel Mode of Arrival: EMS Severity: Moderate Timing: Hours Duration: Since onset Prehospital treatment: None Past Medical History Dementia, DM, HTN, Thyroid, UTI'S Past Surgical History Appendectomy Family History: Diabetes mellitus G8 MOTHER, , Onset:Unknown Allergies: Coded Allergies: NO KNOWN ALLERGIES (Unverified , 05/31/23) Home Meds Active Scripts Apixaban Base (ELIQUIS) 2.5 Mg Tab, 2.5 MG PO BID for 30 Days, #60 TAB Prov:MONICA WHARTON RESIDENT 01/24/25 Potassium Chloride (POTASSIUM CHLORIDE CR) 10 Meq Tb, 1 TAB PO DAILY for 30 Days, #30 TAB 5 Refills Prov:MONICA WHARTON RESIDENT 01/24/25 Doxycycline (Monohydrate) (Doxycycline) 100 Mg Cap, 100 MG PO BID for 3 Days, #6 CAP Prov:MONICA WHARTON RESIDENT 01/24/25 Furosemide (Furosemide) 40 Mg Tab, 1 TAB PO DAILY for 30 Days, #30 TAB 5 Refills Prov:MONICA WHARTON RESIDENT 01/24/25 Polyethylene Glycol 3350 (Miralax) 17 Gm Pow, 17 GM PO BID for 30 Days, #120 POW Prov:LALO CARDOZO MD 02/04/24 Levothyroxine Sodium (Synthroid) 75 Mcg Tab, 1 TAB PO DAILY, #30 TAB 1 Refill Prov:LALO CARDOZO MD 02/04/24 Reported Medications Multiple Vitamin (Multivitamins) Tab, 1 TAB PO DAILY, #90 TAB 3 Refills 01/24/24 Aspirin (Aspirin Low Dose) 81 Mg Tab, 1 TAB PO DAILY 05/31/23 Telmisartan (Telmisartan) 20 Mg Tab, 1 TAB PO DAILY 05/31/23 Pioglitazone Hydrochloride (PIOGLITAZONE HCL) 30 Mg Tab, 1 TAB PO DAILY 05/31/23 Atorvastatin Calcium (ATORVASTATIN CALCIUM) 40 Mg Tab, 1 TAB PO HS 05/31/23 Current Medications Current Medications Medications (Trade) Dose Ordered Sig/Moni Route PRN Reason Start Time Stop Time Status Last Admin Tamsulosin HCl (Flomax) 0.4 mg QPM PO 05/31/25 18:00 05/31/25 17:19 Enoxaparin Sodium (Lovenox) 40 mg DAILY SC 06/01/25 10:00 06/01/25 06:51 DC Pantoprazole Sodium (Protonix) 40 mg DAILY IV 06/01/25 10:00 06/01/25 10:07 Review of Systems Constitutional: reports: weakness; denies: chills, diaphoresis, fatigue, fever, malaise, sweats, others EENTM: denies: blurred vision, double vision, ear bleeding, ear discharge, ear drainage, ear pain, ear ringing, eye pain, eye redness, hearing loss, mouth pain, mouth swelling, nasal discharge, nose bleeding, nose congestion, nose pain, photophobia, tearing, throat pain, throat swelling, voice changes, others Respiratory: denies: cough, hemoptysis, orthopnea, SOB at rest, shortness of breath, SOB with excertion, stridor, wheezing, others Cardiovascular: denies: chest pain, dizzy spells, diaphoresis, Dyspnea on exertion, edema, irregular heart beat, left arm pain, lightheadedness, palpitations, PND, syncope, others Gastrointestinal: denies: abdomen distended, abdominal pain, blood streaked bowels, constipated, diarrhea, dysphagia, difficulty swallowing, hematemesis, melena, nausea, poor appetite, poor fluid intake, rectal bleeding, rectal pain, vomiting, others Genitourinary: denies: burning, dysuria, flank pain, frequency, hematuria, incontinence, penile discharge, penile sore, pain, testicle pain, testicle swelling, urgency, others Neurological: denies: dizziness, fainting, headache, left sided numbness, left sided weakness, numbness, paresthesia, pre-existing deficit, right sided numbness, right sided weakness, seizure, speech problems, tingling, tremors, weakness, others Musculoskeletal: denies: back pain, gout, joint pain, joint swelling, muscle pain, muscle stiffness, neck pain, others Integumetry: denies: bruises, change in color, change in hair/nails, dryness, laceration, lesions, lumps, rash, wounds, others Allergic/Immunocompromised: denies: Difficulty Healing, Frequent Infections, Hives, Itching, others Hematologic/Lymphatic: denies: anemia, blood clots, easy bleeding, easy bruising, swollen glands, others Endocrine: denies: excessive hunger, excessive sweating, excessive thirst, excessive urination, flushing, intolerance to cold, intolerance to heat, unexplained weight gain, unexplained weight loss, others Psychiatric: denies: anxiety, bipolar disorder, depression, hopeless, panic disorder, schizophrenia, sleepless, suicidal, others Unable to Obtain due to: Dementia All Other Systems: Reviewed and Negative Vital Signs Vital Signs Date Time Temp Pulse Resp B/P (MAP) Pulse Ox O2 Delivery O2 Flow Rate FiO2 06/01/25 13:24 97.9 92 20 99/54 (69) 94 97.9 06/01/25 11:09 Room Air* 0 21 Physical Exam General Appearance: Moderate Distress HEENT: Normal ENT Inspection, Pharynx Normal, TMs Normal Neck: Full Range of Motion, Non-Tender, Normal, Normal Inspection Respiratory: Other (Coarse breath sounds) Cardiovascular: No Edema, No JVD, No Murmur, No Gallop, Normal Peripheral Pulses, Regular Rate/Rhythm Breast Exam: Deferred Gastrointestinal: No Organomegaly, Non Tender, No Pulsatile Mass, Normal Bowel Sounds, Soft Genitalia: Deferred Pelvic: Deferred Rectal: Deferred Extremities: No calf tenderness, No pedal edema Musculoskeletal : Apperance: Normal Neurologic: Alert, No Motor Deficits, No Sensory Deficits Cerebellar Function: NOT DONE Reflexes: NOT DONE Skin: Dry, Normal Color, Warm Peripheral Pulses: 3+ Radial (R), 3+ Radial (L) Lymphatic: No Adenopathy Labs/Diagnostic Data Labs Test 06/01/25 11:02 06/01/25 05:21 05/31/25 21:00 05/31/25 15:22 Range/Units POC Glucose 147 H 70-106 mg/dl White Blood Count 4.7 4.4-10.8 10^3/uL Red Blood Count 3.47 L 4.5-5.90 10^6/uL Hemoglobin 12.2 L 13.5-17.5 g/dL Hematocrit 34.4 #L 41.0-53.0 % Mean Corpuscular Volume 99.1 80.0-100.0 fL Mean Corpuscular Hemoglobin 35.3 H 28.0-32.0 pg Mean Corpuscular Hemoglobin Concent 35.6 32.0-36.0 g/dL Red Cell Distribution Width 15.2 H 11.8-14.3 % Platelet Count 91 L 140-450 10^3/uL Mean Platelet Volume 9.2 6.9-10.8 fL Neutrophils (%) (Auto) 70.4 37.0-80.0 % Lymphocytes (%) (Auto) 18.3 10.0-50.0 % Monocytes (%) (Auto) 9.1 0.0-12.0 % Eosinophils (%) (Auto) 1.7 0.0-7.0 % Basophils (%) (Auto) 0.5 0.0-2.0 % Neutrophils # (Auto) 3.3 1.6-8.6 10 ^3/uL Lymphocytes # (Auto) 0.9 0.4-5.4 10 ^3/uL Monocytes # (Auto) 0.4 0-1.3 10 ^3/uL Eosinophils # (Auto) 0.1 0-0.8 10 ^3/uL Basophils # (Auto) 0 0-0.2 10 ^3/uL Nucleated Red Blood Cells 0.1 % Sodium Level 142 136-145 mmol/L Potassium Level 3.7 3.5-5.1 mmol/L Chloride Level 105 98-107 mmol/L Carbon Dioxide Level 27 20-31 mmol/L Anion Gap 10 5-15 Blood Urea Nitrogen 29 H 9-23 mg/dL Creatinine 1.12 0.700-1.30 mg/dL Glomerular Filtration Rate Calc 65 >90 mL/min BUN/Creatinine Ratio 25.9 H 10.0-20.0 Serum Glucose 89 74-106 mg/dL Calcium Level 8.7 8.7-10.4 mg/dL Influenza Type A Antigen Negative Negative Influenza Type B Antigen Negative Negative SARS-CoV-2 Antigen (Rapid) Negative NEGATIVE Ammonia < 10 L 11-32 umol/L Test 05/31/25 14:35 05/31/25 13:15 05/31/25 05:31 05/31/25 01:11 Range/Units Urine Color Light-yellow Yellow Urine Clarity Clear Clear Urine pH 5.0 5.0-9.0 Urine Specific Munith 1.009 1.001-1.035 Urine Protein Negative Negative Urine Ketones Negative Negative Urine Blood 1+ H Negative /uL Urine Nitrite Negative Negative Urine Bilirubin Negative Negative Urine Urobilinogen Normal Negative mg/dL Urine Leukocyte Esterase Negative Negative /uL Urine RBC 1 0 - 3 /hpf Urine Microscopic WBC 1 0-3 /HPF Urine Squamous Epithelial Cells Few <5 /hpf Urine Bacteria None seen None Seen /hpf Urine Glucose Normal Normal mg/dL Vitamin B12 Level 364 211-911 pg/mL Erythrocyte Sedimentation Rate 14 0-20 mm/hr Hemoglobin A1c 6.5 H <5.7 % A1C Total Bilirubin 0.7 0.2-1.0 mg/dL Direct Bilirubin 0.3 <0.3 mg/dL Aspartate Amino Transferase (AST) 24 13-40 U/L Alanine Aminotransferase (ALT) 10 7-40 U/L Alkaline Phosphatase 82 46-116 U/L C-Reactive Protein High Sensitivity 0.58 <1.0 mg/dL Total Protein 6.5 5.7-8.2 g/dL Albumin 3.7 3.2-4.8 g/dL Triglycerides Level 70 < 150 mg/dL Cholesterol Level 70 < 200 mg/dL LDL Cholesterol 36 < 100 mg/dL HDL Cholesterol 26 L 40-59 mg/dL Thyroid Stimulating Hormone (TSH) 1.18 0.55-4.78 uIU/mL Lactic Acid Level 1.5 0.4-2.0 mmol/L Test 05/30/25 15:35 Range/Units Platelet Estimate Decreased Large Platelets Few Anisocytosis (manual) Slight Jorge Luis Cells Few Troponin I High Sensitivity 16 </=54 ng/L Microbiology Date/Time Source Procedure Growth Status 05/31/25 14:35 Urine - Catheterized Urine Culture - Preliminary Resulted 05/31/25 11:39 Blood Blood Culture - Preliminary NO GROWTH AFTER 24 HOURS OF INCUBATION. Resulted PATIENT: MARK GARCIA ACCT: [id number] UNIT: [id number] : 1940 LOC: [facility] ROOM / BED: [facility] / A AGE / SEX: 84 / M ADM STATUS: ADM IN SERVICE 1508 ORDERING PHYSICIAN: CIARA KINCAID PROCEDURE(s): BLDR - BLADDER REASON: Hematuria ORDER NUMBER(s): [id number], ACCESSION NUMBER(s): [id number] INDICATION: Hematuria TECHNIQUE: Multiple real-time grayscale transabdominal sonographic images along with color and duplex Doppler of the uterus and ovaries were obtained. COMPARISON: None FINDINGS: Bladder contains 87.52 mL of urine Right and left ureteral jets not visualized. Prostate measures 4.18 x 4.25 x 4.66 cm. Volume of the prostate is 43.33 mL. Subsequent color and duplex Doppler interrogation of the ovaries demonstrated symmetric vascular flow to both ovaries, though this does not exclude the possibility of torsion due to the dual blood supply. IMPRESSION: 1. Campbell catheter in the bladder. 87 mL of urine in the bladder. Areas debris noted in the dependent portion of the bladder measuring 5.8 x 1.8 x 6.7 cm. 2. No ureteral jets visualized 3. Prostate volume is 43 cc ATED BY: BREANN LOUIE Jr., DO DICTATED DATE/TIME: 06/01/25 161 SIGNED BY: BREANN LOUIE Jr., SIGNED DATE/TIME: 06/01/25 1611 CC: Assessment Hematuria- gross BPH Patient is on Eliquis (on hold) Plan/Recommendation Hold Eliquis Removed the current Campbell catheter and place a [address] to start continuous bladder irrigation Order was given to DARLING Pena Plan discussed with: Patient (Patient has dementia), Other ERUM PRO MD Jun 01, 2025 16:30
[2025-06-01 16:52] LABS: Urine Protein, UAD 2+ (Negative); Urine WBC Clumps PRESENT /hpf (None Seen)
--- NOTE | 2025-06-01 17:45 | DVHPNRES ---
Progress Note Date Seen: Jun 01, 2025 Resident Creating Document: CIARA KINCAID Medical Necessity Reason Pt with a Central, PICC or Fol: Yes The following are medically ne: Campbell Catheter Subjective Review of Systems 84-year-old male presents for evaluation of generalized weakness. Patient is currently alert and oriented x3. Family patient's family called EMS for evaluation due to patient becoming progressively weaker and altered since yesterday. He has been eating less than normal according to his family. Daughter also states that patient has been complaining of neck and upper back pain. Patient is a poor historian. He was noted to be hypotensive in the field in the 80s, and given normal saline bolus which improved his blood pressure to the 100s. No focal deficits noted. PMH: Diabetes mellitus, hypertension, hypothyroidism, dementia PSH: Appendectomy Family history: Reviewed and noncontributory to the management of this case Social history: Patient lives with family, denies any smoking, alcohol, drugs ROS: Patient was seen by me at the bedside. patient is a poor historian. He only complains of pain in his neck. He has oriented to time place and person but confused. Nurse reported that the patient has urinary incontinence and a bladder scan was done which showed 700 mL fluid retention and urinary catheter was placed. Chest x-ray shows possibility of pneumonia and we are treating him with ceftriaxone, azithromycin, breathing treatments with albuterol and ipratropium bromide. COVID/influenza test, sputum culture, blood culture is pending. 06/01: Patient was seen by me at the bedside. Patient reports that he has slight cough which is dry without phlegm. Today we noticed cola colored blood in his urinary bag. USG shows Campbell catheter in the bladder. 87 mL of urine in the bladder. Areas debris noted in the dependent portion of the bladder measuring 5.8 x 1.8 x 6.7 cm. neurology consult has been done, pending Objective vital signs Vital Sign Date Time Temp Pulse Resp B/P (MAP) Pulse Ox O2 Delivery O2 Flow Rate FiO2 06/01/25 17:00 97.6 89 18 91/47 (62) 99 97.6 06/01/25 11:09 Room Air* 0 21 Total Intake and Output 05/31/25 05/31/25 06/01/25 15:00 23:00 07:00 Intake Total 460 ml 620 ml Output Total 300 ml 600 ml Balance 160 ml 20 ml medications Current Medications Medications Dose Ordered Sig/Moni Route Start Time Stop Time Status Last Admin Dose Admin Patient Own Medication 20 mg DAILY PO 05/31/25 10:00 Apixaban 2.5 mg BID PO 05/30/25 22:00 Hold 06/01/25 10:07 2.5 MG Atorvastatin Calcium 40 mg HS PO 05/30/25 22:00 05/31/25 22:54 40 MG Furosemide 40 mg DAILY PO 05/31/25 10:00 05/31/25 09:18 40 MG Levothyroxine Sodium 75 mcg QAM@0600 PO 05/31/25 06:00 06/01/25 05:58 75 MCG Ceftriaxone Sodium 50 ml @ 100 mls/hr DAILY@09 IV 05/31/25 09:00 06/01/25 10:07 100 MLS/HR Azithromycin 250 ml @ 125 mls/hr DAILY IV 05/31/25 10:00 06/01/25 12:38 125 MLS/HR Diagnostic Test (Pha) 1 strip ACHS 05/30/25 22:00 06/01/25 11:30 1 STRIP Insulin Human Regular ACHS SC 05/30/25 22:00 06/01/25 11:30 2 UNITS Dextrose 50 ml UD PRN IV 05/30/25 19:30 Ondansetron HCl 4 mg Q4HP PRN IV 05/30/25 19:30 Acetaminophen 650 mg Q6HP PRN PO 05/30/25 19:30 Ipratropium [place] 0.5 mg Q6HR NEB 05/31/25 12:00 06/01/25 11:09 0.5 MG Albuterol 2.5 mg Q6HR NEB 05/31/25 12:00 06/01/25 11:09 2.5 MG Tamsulosin HCl 0.4 mg QPM PO 05/31/25 18:00 05/31/25 17:19 0.4 MG Pantoprazole Sodium 40 mg DAILY IV 06/01/25 10:00 06/01/25 10:07 40 MG Examination Pt is lying on bed General Appearance: Alert, Oriented X3, Cooperative, Not in acute distress, cola colored blood in the urinary bag from Campbell's HEENT: Atraumatic, Mucous membranes moist/pink Respiratory: Clear to auscultation, Normal air movement, No added sounds Cardiovascular: Regular rate, Normal S1, Normal S2, No murmurs Abdominal: Active bowel sounds, Soft, no distention, no tenderness Extremities: No edema, Normal pulses, No tenderness/swelling, resting tremor seen in the right hand Skin: No Significant rash, except past surgical scars Neuro: Normal speech, sensorimotor deficits none Psych/Mental Status: Mental status NL, Mood NL Nurse was there as plate shop helper during examination laboratory and microbiology Laboratory Tests 06/01/25 05:21 Test 06/01/25 05:21 Range/Units Serum Glucose 89 74-106 mg/dL Microbiology Date/Time Source Procedure Growth Status 05/31/25 14:35 Urine - Catheterized Urine Culture - Preliminary Resulted 05/31/25 11:39 Blood Blood Culture - Preliminary NO GROWTH AFTER 24 HOURS OF INCUBATION. Resulted Labs and/or images reviewed: Labs reviewed by me, Image(s) reviewed by me Problem List/Assessment/Plan Problem List/Assessment/Plan #Sepsis due to Acute Gram-positive / negative bacterial pneumonia #Metabolic encephalopathy due to pneumonia versus urinary retention -Ceftriaxone 1 g IV daily -IV azithromycin 500 mg IV daily -Chest x-ray shows: The cardiac silhouette is unremarkable. The lungs demonstrate bilateral patchy airspace opacities, most pronounced in the left lower lobe. The pulmonary vasculature is prominent. There is no pleural effusion. There is no pneumothorax. -Respiratory therapy with albuterol 2.5, ipratropium bromide q.6 scheduled -ESR pending, CRP-0.58 -COVID/influenza tests, pending -sputum culture, pending blood culture, pending -ammonia normal, TSH normal #Acute urinary retention #Urinary incontinence #Hematuria -UA, pending -bladder scan showed 700 mL fluid retained -Campbell's catheter inserted -Tamsulosin 0.4 mg per orally daily - 06/01 cola colored blood noted in the urinary bag 06/01 USG bladder done shows Campbell catheter in the bladder. 87 mL of urine in the bladder. Areas debris noted in the dependent portion of the bladder measuring 5.8 x 1.8 x 6.7 cm. - urology consult, pending # Diabetes mellitus type 2, HbA1c 6.5 Mild sliding scale insulin started #Hypertension -home medication telmisartan 20 mg tab not given as patient's blood pressure is controlled without #Hyperlipidemia -Continue home medication atorvastatin 40 mg HS -lipid profile came back normal today on 05/31 #Dementia, unspecified -Monitor #Hypothyroidism -Levothyroxine 75 mcg p.o. 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 p.o daily - Furosemide 40 mg p.o. daily - strict fluid restriction - I/O Monitor # macrocytic anemia B12 low normal, supplemented GI prophylaxis: Protonix 40 mg IV daily DVT prophylaxis: Lovenox 40 mg subcutaneous daily Diet: cardiac diet Goals of care discussed with the patient's daughter over the phone, translation provided by nurse quiros, for more than 27 minutes: Full code status Case discussed with , patient and nurse. Plan discussed with: Patient, Other (rn) My Orders My Orders Orders - CIARA KINCAID Procedure Category Date Status Time Bladder US 06/01/25 Resulted 15:08 * Urology Consult CONS 06/01/25 Transmitted 15:09 Date of Service: Jun 01, 2025 Billing Provider: MARS MCARTHUR MD Common Visit Codes: [id number] INP/OBS CARE(HIGH) CIARA KINCAID Jun 01, 2025 17:44 MARS MCARTHUR MD Jun 02, 2025 00:56
[2025-06-01] MEDS: KETOROLAC TROMETH 30 MG/ML 1ML VIAL IV ONE (18:39)
--- NOTE | 2025-06-01 19:10 | DVH ---
Procedure: US BLADDER Study Date and Requested Time: 06/01/2025 06:35 PM Study Description: US BLADDER History: verify 3way myrick placement Comparison: US BLADDER on DOS: 06/01/25, CT CT AB PEL WITH IV CON ONLY on DOS: 01/19/25, CT CT AB PEL WO CON-NO ORAL OR IV on DOS: 02/04/24 Technique: Multiple transabdominal high resolution ocampo-scale images obtained of the urinary bladder with color Doppler for evaluation as needed Findings /impression: Myrick catheter is noted within the decompressed urinary bladder. 2.2 x 2.8 x 2 cm debris is noted wit hin the urinary bladder.
[2025-06-01] MEDS: SODIUM CHLORIDE 0.9% 250 ML IV ONE (22:43)
[2025-06-02] VITALS (20 sets, daily range): BP systolic 83–112; BP diastolic 41–67; PULSE 57–95; RESP 16–20; TEMP 97.2–98; O2SAT 97–100
[2025-06-02 08:07] LABS: Prostate Specific Antigen 4.5 ng/mL (0.0-4.0)
[2025-06-02] MEDS: SODIUM CHLORIDE 0.9% 500 ML IV ONE ×2 (08:36→10:20)
[2025-06-02 09:09] LABS: Nucleated Red Blood Cells % 0.0 %
[2025-06-02 09:11] LABS: Chloride 103 mmol/L (98-107); Potassium 4.3 mmol/L (3.5-5.1); Sodium 140 mmol/L (136-145)
[2025-06-02 09:12] LABS: Anion Gap 11 (5-15); Carbon Dioxide 26 mmol/L (20-31); Hematocrit 31.4 % (41.0-53.0); Hemoglobin 11.0 g/dL (13.5-17.5); Mean Corpuscular Hemoglobin 35.1 pg (28.0-32.0); Mean Corpuscular Volume 100.5 fL (80.0-100.0)
[2025-06-02 09:17] LABS: BUN/Creatinine Ratio 21.4 (10.0-20.0)
[2025-06-02 09:30] LABS: Blood Urea Nitrogen 30 mg/dL (9-23); Calcium 8.7 mg/dL (8.7-10.4); Glucose 138 mg/dL (74-106)
--- NOTE | 2025-06-02 09:57 | DVHPNRES ---
Progress Note Date Seen: Jun 02, 2025 Resident Creating Document: CIARA KINCAID Medical Necessity Reason Pt with a Central, PICC or Fol: Yes The following are medically ne: Campbell Catheter Subjective Review of Systems 84-year-old male presents for evaluation of generalized weakness. Patient is currently alert and oriented x3. Family patient's family called EMS for evaluation due to patient becoming progressively weaker and altered since yesterday. He has been eating less than normal according to his family. Daughter also states that patient has been complaining of neck and upper back pain. Patient is a poor historian. He was noted to be hypotensive in the field in the 80s, and given normal saline bolus which improved his blood pressure to the 100s. No focal deficits noted. PMH: Diabetes mellitus, hypertension, hypothyroidism, dementia PSH: Appendectomy Family history: Reviewed and noncontributory to the management of this case Social history: Patient lives with family, denies any smoking, alcohol, drugs ROS: Patient was seen by me at the bedside. patient is a poor historian. He only complains of pain in his neck. He has oriented to time place and person but confused. Nurse reported that the patient has urinary incontinence and a bladder scan was done which showed 700 mL fluid retention and urinary catheter was placed. Chest x-ray shows possibility of pneumonia and we are treating him with ceftriaxone, azithromycin, breathing treatments with albuterol and ipratropium bromide. COVID/influenza test, sputum culture, blood culture is pending. 06/01: Patient was seen by me at the bedside. Patient reports that he has slight cough which is dry without phlegm. Today we noticed cola colored blood in his urinary bag. USG shows Campbell catheter in the bladder. 87 mL of urine in the bladder. Areas debris noted in the dependent portion of the bladder measuring 5.8 x 1.8 x 6.7 cm. neurology consult has been done, suggested: Hold Eliquis,Removed the current Campbell catheter and place a [address] to start continuous bladder irrigation 06/02: patient was seen by me at the bedside. Patient reports that he has no new active complaints. He seems alert the normal. He was able to understand what I was seeing and I explained to him why he has been hospitalized. Overnight the old Campbell's was discontinued and a 3 way Campbell's was added with continuous bladder irrigation. Nurse reports that the clots in the urinary bag and be manually irrigated. Patient's blood pressure was 87/45 MAP 59 so 500 mL bolus fluid was given. Two more boluses of 0.9% normal saline has been given because of the low blood pressure. 1 bag albumin 25 g has also been given. Clear straw-colored urine noticed in Campbell's today that later became slightly pink. Objective vital signs Vital Sign Date Time Temp Pulse Resp B/P (MAP) Pulse Ox O2 Delivery O2 Flow Rate FiO2 06/02/25 09:00 97.7 68 16 87/45 (59) 99 97.7 06/02/25 06:50 Room Air* 0 21 21 Total Intake and Output 06/01/25 06/01/25 06/02/25 15:00 23:00 07:00 Intake Total 540 ml 500 ml Output Total 8150 ml 92023 ml Balance -7610 ml -22458 ml medications Current Medications Medications Dose Ordered Sig/Moni Route Start Time Stop Time Status Last Admin Dose Admin Apixaban 2.5 mg BID PO 05/30/25 22:00 Hold 06/01/25 10:07 2.5 MG Atorvastatin Calcium 40 mg HS PO 05/30/25 22:00 06/01/25 22:29 40 MG Levothyroxine Sodium 75 mcg QAM@0600 PO 05/31/25 06:00 06/02/25 06:06 75 MCG Ceftriaxone Sodium 50 ml @ 100 mls/hr DAILY@09 IV 05/31/25 09:00 06/01/25 10:07 100 MLS/HR Azithromycin 250 ml @ 125 mls/hr DAILY IV 05/31/25 10:00 06/01/25 12:38 125 MLS/HR Diagnostic Test (Pha) 1 strip ACHS 05/30/25 22:00 06/02/25 06:23 1 STRIP Insulin Human Regular ACHS SC 05/30/25 22:00 06/01/25 22:34 2 UNITS Dextrose 50 ml UD PRN IV 05/30/25 19:30 Ondansetron HCl 4 mg Q4HP PRN IV 05/30/25 19:30 Acetaminophen 650 mg Q6HP PRN PO 05/30/25 19:30 Ipratropium [place] 0.5 mg Q6HR NEB 05/31/25 12:00 06/02/25 06:58 0.5 MG Albuterol 2.5 mg Q6HR NEB 05/31/25 12:00 06/02/25 06:58 2.5 MG Tamsulosin HCl 0.4 mg QPM PO 05/31/25 18:00 06/01/25 18:39 0.4 MG Pantoprazole Sodium 40 mg DAILY IV 06/01/25 10:00 06/01/25 10:07 40 MG Examination General Appearance: Alert, Oriented X3, Cooperative, Not in acute distress, Campbell's catheter inserted, draining straw-colored liquid with blood clots HEENT: Atraumatic, Mucous membranes moist/pink Respiratory: Clear to auscultation, Normal air movement, No added sounds Cardiovascular: Regular rate, Normal S1, Normal S2, No murmurs Abdominal: Active bowel sounds, Soft, no distention, no tenderness Extremities: No edema, Normal pulses, No tenderness/swelling, resting tremor seen in the right hand Skin: No Significant rash, except past surgical scars Neuro: Normal speech, sensorimotor deficits none Psych/Mental Status: Mental status NL, Mood NL Nurse was there as hydroelectric production technician during examination laboratory and microbiology Laboratory Tests 06/02/25 08:45 Test 06/02/25 08:45 Range/Units Serum Glucose 138 H 74-106 mg/dL Microbiology Date/Time Source Procedure Growth Status 05/31/25 14:35 Urine - Catheterized Urine Culture - Preliminary Resulted 05/31/25 11:39 Blood Blood Culture - Preliminary NO GROWTH AFTER 24 HOURS OF INCUBATION. Resulted Labs and/or images reviewed: Labs reviewed by me, Image(s) reviewed by me Problem List/Assessment/Plan Problem List/Assessment/Plan #Sepsis due to Acute Gram-positive / negative bacterial pneumonia #Sepsis due to Acute Gram-positive / negative bacterial pneumonia #Metabolic encephalopathy due to pneumonia versus urinary retention -Ceftriaxone 1 g IV daily -IV azithromycin 500 mg IV daily -Chest x-ray shows: The cardiac silhouette is unremarkable. The lungs demonstrate bilateral patchy airspace opacities, most pronounced in the left lower lobe. The pulmonary vasculature is prominent. There is no pleural effusion. There is no pneumothorax. -Respiratory therapy with albuterol 2.5, ipratropium bromide q.6 scheduled -ESR 14, CRP-0.58 -COVID/influenza tests, negative -sputum culture, pending blood culture, pending -ammonia normal, TSH normal #Acute urinary retention #Urinary incontinence #Hematuria -UA, pending -bladder scan showed 700 mL fluid retained -Campbell's catheter inserted -Tamsulosin 0.4 mg per orally daily - 06/01 cola colored blood noted in the urinary bag 06/01 USG bladder done shows Campbell catheter in the bladder. 87 mL of urine in the bladder. Areas debris noted in the dependent portion of the bladder measuring 5.8 x 1.8 x 6.7 cm. --repeat usg on same day showed : Campbell catheter is noted within the decompressed urinary bladder. 2.2 x 2.8 x 2 cm -07/02 urology consult suggested: Hold Eliquis,Removed the current Campbell catheter and place a [address] to start continuous bladder irrigation -06/02: blood clots in the urinary bag, continuous irrigation done, 3 way Campbell's catheter placed after removal of previous Campbell's #hypotension -home medication telmisartan 20 mg tab not given as patient's blood pressure is controlled without - 06/02- BP in the morning 87/45 MAP 59, NS bolus 500ml given -patient given 2 boluses of 500 mL 0.9% normal saline -patient given albumin 25 g 1 bag -midodrine 10 mg t.i.d. # Diabetes mellitus type 2, HbA1c 6.5 Mild sliding scale insulin started #Hyperlipidemia -Continue home medication atorvastatin 40 mg HS -lipid profile came back normal today on 05/31 #Dementia, unspecified -Monitor #Hypothyroidism -Levothyroxine 75 mcg p.o. 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 p.o daily - Furosemide 40 mg p.o. daily - strict fluid restriction - I/O Monitor -06/02 Eliquis on hold as patient has gross hematuria # macrocytic anemia B12 low normal, supplemented GI prophylaxis: Protonix 40 mg IV daily DVT prophylaxis: SCD device Diet: cardiac diet Goals of care discussed with the patient's daughter over the phone, translation provided by nurse quiros, for more than 27 minutes: Full code status Case discussed with , patient and nurse. Plan discussed with: Patient, Other (rn) My Orders My Orders Orders - KINCAID,SREYA RESIDENT Procedure Category Date Status Time Bladder US 06/01/25 Resulted 15:08 * Urology Consult CONS 06/01/25 Transmitted 15:09 Date of Service: Jun 02, 2025 Billing Provider: MARS MCARTHUR MD Common Visit Codes: [id number] INP/OBS CARE(HIGH) CIARA KINCAID Jun 02, 2025 09:57 MARS MCARTHUR MD Jun 06, 2025 16:43
[2025-06-02] MEDS ORDERED: LOSARTAN POTASSIUM 25 MG TAB PO SCH (10:00)
[2025-06-02] MEDS: MIDODRINE HCL 10 MG TAB PO ONE (12:08)
[2025-06-02] MEDS: SODIUM CHLORIDE 0.9% 1,000 ML IV ONE (14:00)
[2025-06-02] MEDS: ALBUMIN 25% 100 ML IV ONE (14:40)
[2025-06-02] MEDS: MIDODRINE HCL 10 MG TAB PO SCH (17:33)
[2025-06-03] VITALS (16 sets, daily range): BP systolic 90–107; BP diastolic 52–62; PULSE 86–95; RESP 12–20; TEMP 97.4–98.1; O2SAT 93–100
[2025-06-03 06:52] LABS: Hematocrit 28.2 % (41.0-53.0); Hemoglobin 9.5 g/dL (13.5-17.5); Mean Corpuscular Hemoglobin 31.9 pg (28.0-32.0); Mean Corpuscular Volume 94.4 fL (80.0-100.0); Nucleated Red Blood Cells % 0.0 %
[2025-06-03 07:32] LABS: Anion Gap 9 (5-15); Carbon Dioxide 25 mmol/L (20-31); Chloride 104 mmol/L (98-107); Potassium 4.0 mmol/L (3.5-5.1); Sodium 138 mmol/L (136-145)
[2025-06-03 07:38] LABS: BUN/Creatinine Ratio 24.8 (10.0-20.0); Glucose 100 mg/dL (74-106)
[2025-06-03 07:40] LABS: Blood Urea Nitrogen 29 mg/dL (9-23); Calcium 8.1 mg/dL (8.7-10.4)
[2025-06-03] MEDS ORDERED: SODIUM CHL 3% HYPERTONIC 500 ML BAG IN ONE (08:15)
[2025-06-03 11:37] LABS: INR 1.12 (0.9-1.15); Partial Thromboplastin Time 34.2 SEC (24.5-34.5); Prothrombin Time 11.7 sec (9.3-11.8)
--- NOTE | 2025-06-03 12:38 | DVHPNRES ---
Progress Note Date Seen: Jun 03, 2025 Resident Creating Document: CIARA KINCAID Medical Necessity Reason Pt with a Central, PICC or Fol: Yes The following are medically ne: Campbell Catheter Subjective Review of Systems 84-year-old male presents for evaluation of generalized weakness. Patient is currently alert and oriented x3. Family patient's family called EMS for evaluation due to patient becoming progressively weaker and altered since yesterday. He has been eating less than normal according to his family. Daughter also states that patient has been complaining of neck and upper back pain. Patient is a poor historian. He was noted to be hypotensive in the field in the 80s, and given normal saline bolus which improved his blood pressure to the 100s. No focal deficits noted. PMH: Diabetes mellitus, hypertension, hypothyroidism, dementia PSH: Appendectomy Family history: Reviewed and noncontributory to the management of this case Social history: Patient lives with family, denies any smoking, alcohol, drugs ROS: Patient was seen by me at the bedside. patient is a poor historian. He only complains of pain in his neck. He has oriented to time place and person but confused. Nurse reported that the patient has urinary incontinence and a bladder scan was done which showed 700 mL fluid retention and urinary catheter was placed. Chest x-ray shows possibility of pneumonia and we are treating him with ceftriaxone, azithromycin, breathing treatments with albuterol and ipratropium bromide. COVID/influenza test, sputum culture, blood culture is pending. 06/01: Patient was seen by me at the bedside. Patient reports that he has slight cough which is dry without phlegm. Today we noticed cola colored blood in his urinary bag. USG shows Campbell catheter in the bladder. 87 mL of urine in the bladder. Areas debris noted in the dependent portion of the bladder measuring 5.8 x 1.8 x 6.7 cm. neurology consult has been done, suggested: Hold Eliquis,Removed the current Campbell catheter and place a [address] to start continuous bladder irrigation 06/02: patient was seen by me at the bedside. Patient reports that he has no new active complaints. He seems alert the normal. He was able to understand what I was seeing and I explained to him why he has been hospitalized. Overnight the old Campbell's was discontinued and a 3 way Campbell's was added with continuous bladder irrigation. Nurse reports that the clots in the urinary bag and be manually irrigated. Patient's blood pressure was 87/45 MAP 59 so 500 mL bolus fluid was given. Two more boluses of 0.9% normal saline has been given because of the low blood pressure. 1 bag albumin 25 g has also been given. Clear straw-colored urine noticed in Campbell's today that later became slightly pink. 06/03: Patient was seen by me at the bedside. Today the patient did not want to speak. Nurse reported no overnight events and the urinary bag shows pink urine and irrigation is ongoing. Urology consult, pending Objective vital signs Vital Sign Date Time Temp Pulse Resp B/P (MAP) Pulse Ox O2 Delivery O2 Flow Rate FiO2 06/03/25 12:19 92 14 100 06/03/25 12:13 Room Air 06/03/25 12:13 0 21 06/03/25 09:00 98.1 98/53 (68) 98.1 Total Intake and Output 06/02/25 06/02/25 06/03/25 15:00 23:00 07:00 Intake Total 1011 ml 1100 ml 1200 ml Output Total 64813 ml 84656 ml 40787 ml Balance -71056 ml -71274 ml -82133 ml medications Current Medications Medications Dose Ordered Sig/Moni Route Start Time Stop Time Status Last Admin Dose Admin Apixaban 2.5 mg BID PO 05/30/25 22:00 Hold 06/01/25 10:07 2.5 MG Atorvastatin Calcium 40 mg HS PO 05/30/25 22:00 06/02/25 21:37 40 MG Levothyroxine Sodium 75 mcg QAM@0600 PO 05/31/25 06:00 06/03/25 05:55 75 MCG Ceftriaxone Sodium 50 ml @ 100 mls/hr DAILY@09 IV 05/31/25 09:00 06/03/25 09:08 100 MLS/HR Azithromycin 250 ml @ 125 mls/hr DAILY IV 05/31/25 10:00 06/03/25 10:23 125 MLS/HR Diagnostic Test (Pha) 1 strip ACHS 05/30/25 22:00 06/03/25 11:14 1 STRIP Insulin Human Regular ACHS SC 05/30/25 22:00 06/03/25 11:13 2 UNITS Dextrose 50 ml UD PRN IV 05/30/25 19:30 Ondansetron HCl 4 mg Q4HP PRN IV 05/30/25 19:30 Acetaminophen 650 mg Q6HP PRN PO 05/30/25 19:30 Ipratropium [place] 0.5 mg Q6HR NEB 05/31/25 12:00 06/03/25 12:13 0.5 MG Albuterol 2.5 mg Q6HR NEB 05/31/25 12:00 06/03/25 12:13 2.5 MG Tamsulosin HCl 0.4 mg QPM PO 05/31/25 18:00 06/02/25 17:32 0.4 MG Pantoprazole Sodium 40 mg DAILY IV 06/01/25 10:00 06/03/25 09:08 40 MG Midodrine 10 mg TID@0600,1200,1800 PO 06/02/25 18:00 06/03/25 05:57 10 MG laboratory and microbiology Laboratory Tests 06/03/25 06:06 Test 06/03/25 06:06 Range/Units Serum Glucose 100 74-106 mg/dL Microbiology Date/Time Source Procedure Growth Status 05/31/25 14:35 Urine - Catheterized Urine Culture - Final Complete 05/31/25 11:39 Blood Blood Culture - Preliminary NO GROWTH AFTER 72 HOURS OF INCUBATION. Resulted Labs and/or images reviewed: Labs reviewed by me, Image(s) reviewed by me Problem List/Assessment/Plan Problem List/Assessment/Plan #Sepsis due to Acute Gram-positive / negative bacterial pneumonia #Metabolic encephalopathy due to pneumonia versus urinary retention -Ceftriaxone 1 g IV daily -IV azithromycin 500 mg IV daily -Chest x-ray shows: The cardiac silhouette is unremarkable. The lungs demonstrate bilateral patchy airspace opacities, most pronounced in the left lower lobe. The pulmonary vasculature is prominent. There is no pleural effusion. There is no pneumothorax. -Respiratory therapy with albuterol 2.5, ipratropium bromide q.6 scheduled -ESR 14, CRP-0.58 -COVID/influenza tests, negative -sputum culture, pending blood culture, pending -ammonia normal, TSH normal #Acute urinary retention #Urinary incontinence #Hematuria -urine analysis shows 2+ protein, 3+ blood, trace leukocyte esterase, urine RBC 594, urine WBC 608, urine glucose trace with urine clarity ex.turbid -bladder scan showed 700 mL fluid retained -Campbell's catheter inserted -Tamsulosin 0.4 mg per orally daily - 06/01 cola colored blood noted in the urinary bag 06/01 USG bladder done shows Campbell catheter in the bladder. 87 mL of urine in the bladder. Areas debris noted in the dependent portion of the bladder measuring 5.8 x 1.8 x 6.7 cm. -repeat usg on same day showed : Campbell catheter is noted within the decompressed urinary bladder. 2.2 x 2.8 x 2 cm -07/02 urology consult suggested: Hold Eliquis,Removed the current Campbell catheter and place a [address] to start continuous bladder irrigation -06/02: blood clots in the urinary bag, continuous irrigation done, 3 way Campbell's catheter placed after removal of previous Campbell's -06/03: [place] urine draining, continuous irrigation continued #hypotension -home medication telmisartan 20 mg tab not given as patient's blood pressure is controlled without - 06/02- BP in the morning 87/45 MAP 59, NS bolus 500ml given -patient given 2 boluses of 500 mL 0.9% normal saline -patient given albumin 25 g 1 bag -midodrine 10 mg t.i.d. # Diabetes mellitus type 2, HbA1c 6.5 Mild sliding scale insulin started #Hyperlipidemia -Continue home medication atorvastatin 40 mg HS -lipid profile came back normal today on 05/31 #Dementia, unspecified -Monitor #Hypothyroidism -Levothyroxine 75 mcg p.o. 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 p.o daily - Furosemide 40 mg p.o. daily - strict fluid restriction - I/O Monitor -06/02 Eliquis on hold as patient has gross hematuria # macrocytic anemia B12 low normal, supplemented GI prophylaxis: Protonix 40 mg IV daily DVT prophylaxis: SCD device Diet: cardiac diet Goals of care discussed with the patient's daughter over the phone, translation provided by nurse quiros, for more than 27 minutes: Full code status Case discussed with , patient and nurse. Plan discussed with: Patient, Other (rn) Date of Service: Jun 03, 2025 Billing Provider: MARS MCARTHUR MD Common Visit Codes: [id number] INP/OBS CARE(HIGH) CIARA KINCAID Jun 03, 2025 12:38 MARS MCARTHUR MD Jun 06, 2025 16:53
[2025-06-04] VITALS (18 sets, daily range): BP systolic 109–126; BP diastolic 58–86; PULSE 54–98; RESP 16–20; TEMP 97.8–98.8; O2SAT 94–100
[2025-06-04 07:57] LABS: Nucleated Red Blood Cells % 0.1 %
[2025-06-04 08:01] LABS: Chloride 105 mmol/L (98-107); Hematocrit 28.5 % (41.0-53.0); Hemoglobin 9.9 g/dL (13.5-17.5); Mean Corpuscular Hemoglobin 34.6 pg (28.0-32.0); Mean Corpuscular Volume 99.6 fL (80.0-100.0); Potassium 4.3 mmol/L (3.5-5.1); Sodium 139 mmol/L (136-145)
[2025-06-04 08:02] LABS: Anion Gap 8 (5-15); Carbon Dioxide 26 mmol/L (20-31)
[2025-06-04 08:07] LABS: BUN/Creatinine Ratio 27.5 (10.0-20.0); Glucose 84 mg/dL (74-106)
[2025-06-04 08:09] LABS: Blood Urea Nitrogen 28 mg/dL (9-23); Calcium 8.4 mg/dL (8.7-10.4)
--- NOTE | 2025-06-04 09:21 | DVH ---
EXAM: US BLADDER DATE OF SERVICE: 06/04/2025 08:15 AM ORDERING PHYSICIAN: CIARA KINCAID RESIDENT REASON FOR EXAM: hematuria, check for clots TECHNIQUE: Sonographic imaging of the bladder was obtained. COMPARISON: US BLADDER on DOS: 06/01/25, US BLADDER on DOS: 06/01/25, CT CT AB PEL WITH IV CON ONLY on DOS: 01/19/25, CT CT AB PEL WO CON-NO ORAL OR IV on DOS: 02/04/24 FINDINGS: A myrick catheter partially decompressed the bladder. The bladder volume is 87 ml. There is a small to moderate amount of mobile debris within the bladder. There is an 8 mm bladder stone versus focus of air. IMPRESSION: Small to moderate amount of debris within the bladder. 8 mm bladder stone versus intraluminal bladder air. Myrick catheter partially Decompressed the bladder. Bladder volume is 87 ml.
--- NOTE | 2025-06-04 11:40 | DVHPN2 ---
Progress Note - Dictate Date Seen: Jun 04, 2025 Medical Necessity Reason Pt with a Central, PICC or Fol: Yes The following are medically ne: Myrick Catheter Medical Necessity Reason Gross hematuria on CBI Eliquis stopped only 3 days ago. Subjective Tolerating myrick and CBI vital signs Vital Sign Date Time Temp Pulse Resp B/P (MAP) Pulse Ox O2 Delivery O2 Flow Rate FiO2 06/04/25 08:00 92 06/04/25 08:00 20 96 Room Air* 0 21 06/04/25 05:00 98.0 117/71 (86) 98.0 Total Intake and Output 06/03/25 06/03/25 06/04/25 15:00 23:00 07:00 Intake Total 290 ml 150 ml 120 ml Output Total 14489 ml 00182 ml Balance 290 ml -96162 ml -31202 ml medications Current Medications Medications Dose Ordered Sig/Moni Route Start Time Stop Time Status Last Admin Dose Admin Apixaban 2.5 mg BID PO 05/30/25 22:00 Hold 06/01/25 10:07 2.5 MG Atorvastatin Calcium 40 mg HS PO 05/30/25 22:00 06/03/25 21:19 40 MG Levothyroxine Sodium 75 mcg QAM@0600 PO 05/31/25 06:00 06/04/25 06:02 75 MCG Ceftriaxone Sodium 50 ml @ 100 mls/hr DAILY@09 IV 05/31/25 09:00 06/04/25 09:21 100 MLS/HR Azithromycin 250 ml @ 125 mls/hr DAILY IV 05/31/25 10:00 06/04/25 09:22 125 MLS/HR Diagnostic Test (Pha) 1 strip ACHS 05/30/25 22:00 06/04/25 11:26 1 STRIP Insulin Human Regular ACHS SC 05/30/25 22:00 06/03/25 22:08 2 UNITS Dextrose 50 ml UD PRN IV 05/30/25 19:30 Ondansetron HCl 4 mg Q4HP PRN IV 05/30/25 19:30 Acetaminophen 650 mg Q6HP PRN PO 05/30/25 19:30 Ipratropium [place] 0.5 mg Q6HR NEB 05/31/25 12:00 06/04/25 06:48 0.5 MG Albuterol 2.5 mg Q6HR NEB 05/31/25 12:00 06/04/25 06:48 2.5 MG Tamsulosin HCl 0.4 mg QPM PO 05/31/25 18:00 06/03/25 18:08 0.4 MG Pantoprazole Sodium 40 mg DAILY IV 06/01/25 10:00 06/04/25 09:21 40 MG Midodrine 10 mg TID@0600,1200,1800 PO 06/02/25 18:00 06/04/25 11:30 10 MG laboratory and microbiology Laboratory Tests 06/04/25 07:24 Test 06/04/25 07:24 Range/Units Serum Glucose 84 74-106 mg/dL Assessment/Plan Hematuria- gross BPH Possible bladder stone reported on US Patient is on Eliquis (on hold) CT Scan AP NC Cystoscopy with possible TURP and cystolitholapaxy on Saturday Patient requires hospital stay for CBI. Cannot intervene today due to Eliquis only stopped 3 days ago. Dietary Evaluation Review Comments: Continue current plan of care Monitor PO intake, lab values, weight trend, and I/O Expected Outcomes/Goals: To meet >75% estimated needs Fu 3-5 days Plan discussed with: Patient, Other ERUM PRO MD Jun 04, 2025 11:40
--- NOTE | 2025-06-04 13:25 | DVH ---
Exam: CT CT AB PEL WO CON-NO ORAL OR IV History: urolithiasis Comparison Study: CT CHEST WITHOUT CONTRAST on DOS: 01/24/25, CT CT AB PEL WITH IV CON ONLY on DOS: 01/19/25, CT CT AB PEL WO CON-NO ORAL OR IV on DOS: 02/04/24 TECHNIQUE: Multidetector CT of the abdomen and pelvis without IV contrast. Axial, coronal and sagitta l multiplanar reformats were obtained from the axial data set by the technologist. Radiation Dose Information: CT Dose: CTDI volume is 18.15 mGy. Dose-length product is 3.92 mGy*cm FINDINGS: Moderate to large left with small to moderate right-sided pleural effusions and associated atelectasi s. Borderline cardiomegaly. Calcified granulomas within the liver. Otherwise, liver, spleen, and adrenal glands are unremarkable . Lung mild mesenteric edema limits evaluation of the pancreas acute pancreatitis. Kidneys and ureters are unremarkable. Urinary bladder is decompressed with Campbell catheter in place. F ocus of air within the Urinary bladder which is most likely iatrogenic. Mild wall thickening of the d ecompressed urinary bladder. Prostate measures 3.1 x 5.5 x 5.4 cm. Stomach is unremarkable. Small bowel loops are unremarkable. Appendix is not definitely visualized. M oderate to large amount of fecal material within the colon. Trace ascites/mesenteric edema. No evidence of intraperitoneal free air. No evidence of aortic aneurysm. [id number] atherosclerotic calcification of the aorta and bila teral iliacs. No significant lymphadenopathy. [id number] body wall edema. Diffuse demineralization. Evidence of acute osseous abnormalities. IMPRESSION: Large amount of fecal material within the colon. Urinary bladder is decompressed and demonstrates mild wall thickening with Campbell catheter in place. Focus of air within the Urinary bladder which is most likely iatrogenic. Correlation with urinalysis is recommended to exclude cystitis. Trace ascites/diffuse mesenteric edema which limits evaluation of the pancreas for possible acute reyse creatitis. Moderate to large left with small to moderate right-sided pleural effusions and associated atelectasi s.
--- NOTE | 2025-06-04 15:18 | DVH ---
CHEST RADIOGRAPH Indication: sob, increased deep breathing Technique: Single frontal view of the chest was obtained Comparison: XY CHEST PORTABLE on DOS: 05/30/25, CT CHEST WITHOUT CONTRAST on DOS: 01/24/25, XY CHEST PO RTABLE on DOS: 01/23/25 FINDINGS: Lines and Tubes: None Lungs: Left lower lobe airspace disease and pleural effusion. Probable gas distended bowel under rig ht diaphragm if pneumoperitoneum is of clinical concern recommend CT abdomen and pelvis. Pleura: No effusion. No pneumothorax. Cardiomediastinal contours: Unremarkable Bones: No acute osseous abnormality. IMPRESSION: 1. Airspace disease left lower lobe with pleural effusion. 2. Probable gas-filled bowel below the right diaphragm however pneumoperitoneum is of clinical rosetta rn recommend CT abdomen and pelvis.
[2025-06-04] MEDS: FLEET ENEMA(ADULT) 135 ML PR SCH (17:09)
--- NOTE | 2025-06-04 17:19 | DVHPNRES ---
Progress Note Date Seen: Jun 04, 2025 Resident Creating Document: CIARA KINCAID Medical Necessity Reason Pt with a Central, PICC or Fol: Yes The following are medically ne: Campbell Catheter Subjective Review of Systems 84-year-old male presents for evaluation of generalized weakness. Patient is currently alert and oriented x3. Family patient's family called EMS for evaluation due to patient becoming progressively weaker and altered since yesterday. He has been eating less than normal according to his family. Daughter also states that patient has been complaining of neck and upper back pain. Patient is a poor historian. He was noted to be hypotensive in the field in the 80s, and given normal saline bolus which improved his blood pressure to the 100s. No focal deficits noted. PMH: Diabetes mellitus, hypertension, hypothyroidism, dementia PSH: Appendectomy Family history: Reviewed and noncontributory to the management of this case Social history: Patient lives with family, denies any smoking, alcohol, drugs ROS: Patient was seen by me at the bedside. patient is a poor historian. He only complains of pain in his neck. He has oriented to time place and person but confused. Nurse reported that the patient has urinary incontinence and a bladder scan was done which showed 700 mL fluid retention and urinary catheter was placed. Chest x-ray shows possibility of pneumonia and we are treating him with ceftriaxone, azithromycin, breathing treatments with albuterol and ipratropium bromide. COVID/influenza test, sputum culture, blood culture is pending. 06/01: Patient was seen by me at the bedside. Patient reports that he has slight cough which is dry without phlegm. Today we noticed cola colored blood in his urinary bag. USG shows Campbell catheter in the bladder. 87 mL of urine in the bladder. Areas debris noted in the dependent portion of the bladder measuring 5.8 x 1.8 x 6.7 cm. neurology consult has been done, suggested: Hold Eliquis,Removed the current Campbell catheter and place a [address] to start continuous bladder irrigation 06/02: patient was seen by me at the bedside. Patient reports that he has no new active complaints. He seems alert the normal. He was able to understand what I was seeing and I explained to him why he has been hospitalized. Overnight the old Campbell's was discontinued and a 3 way Campbell's was added with continuous bladder irrigation. Nurse reports that the clots in the urinary bag and be manually irrigated. Patient's blood pressure was 87/45 MAP 59 so 500 mL bolus fluid was given. Two more boluses of 0.9% normal saline has been given because of the low blood pressure. 1 bag albumin 25 g has also been given. Clear straw-colored urine noticed in Campbell's today that later became slightly pink. 06/03: Patient was seen by me at the bedside. Today the patient did not want to speak. Nurse reported no overnight events and the urinary bag shows pink urine and irrigation is ongoing. Urology consult, pending 06/04: Patient was seen by me at the bedside. Repeat USG bladder was done which showed Small to moderate amount of debris within the bladder; 8 mm bladder stone versus intraluminal bladder air; Campbell catheter partially Decompressed the bladder. Bladder volume is 87 ml. Urology consult suggested Cystoscopy with possible TURP and cystolitholapaxy on Saturday chest x-ray today shows : -Airspace disease left lower lobe with pleural effusion. -Probable gas-filled bowel below the right diaphragm however pneumoperitoneum is of clinical concern recommend CT abdomen and pelvis. CT abdomen pelvis today showed : -Large amount of fecal material within the colon.; -Urinary bladder is decompressed and demonstrates mild wall thickening with Campbell catheter in place. Focus of air within the Urinary bladder which is most likely iatrogenic. Correlation with urinalysis is recommended to exclude cystitis. -Trace ascites/diffuse mesenteric edema which limits evaluation of the pancreas for possible acute pancreatitis. -Moderate to large left with small to moderate right-sided pleural effusions and associated atelectasis. -chest ultrasound ordered, results pending -for large volume of stool CT --> fleet enema twice a day scheduled, bisacodyl suppository 10 mg p.r. hs scheduled Objective vital signs Vital Sign Date Time Temp Pulse Resp B/P (MAP) Pulse Ox O2 Delivery O2 Flow Rate FiO2 06/04/25 16:43 98.0 98 18 109/68 (82) 98 98.0 06/04/25 11:54 Room Air* 0 21 Total Intake and Output 06/03/25 06/03/25 06/04/25 15:00 23:00 07:00 Intake Total 290 ml 150 ml 120 ml Output Total 54309 ml 20080 ml Balance 290 ml -16922 ml -38984 ml medications Current Medications Medications Dose Ordered Sig/Moni Route Start Time Stop Time Status Last Admin Dose Admin Apixaban 2.5 mg BID PO 05/30/25 22:00 Hold 06/01/25 10:07 2.5 MG Atorvastatin Calcium 40 mg HS PO 05/30/25 22:00 06/03/25 21:19 40 MG Levothyroxine Sodium 75 mcg QAM@0600 PO 05/31/25 06:00 06/04/25 06:02 75 MCG Ceftriaxone Sodium 50 ml @ 100 mls/hr DAILY@09 IV 05/31/25 09:00 06/04/25 09:21 100 MLS/HR Azithromycin 250 ml @ 125 mls/hr DAILY IV 05/31/25 10:00 06/04/25 09:22 125 MLS/HR Diagnostic Test (Pha) 1 strip ACHS 05/30/25 22:00 06/04/25 11:26 1 STRIP Insulin Human Regular ACHS SC 05/30/25 22:00 06/03/25 22:08 2 UNITS Dextrose 50 ml UD PRN IV 05/30/25 19:30 Ondansetron HCl 4 mg Q4HP PRN IV 05/30/25 19:30 Acetaminophen 650 mg Q6HP PRN PO 05/30/25 19:30 Ipratropium [place] 0.5 mg Q6HR NEB 05/31/25 12:00 06/04/25 11:54 0.5 MG Albuterol 2.5 mg Q6HR NEB 05/31/25 12:00 06/04/25 11:54 2.5 MG Tamsulosin HCl 0.4 mg QPM PO 05/31/25 18:00 06/03/25 18:08 0.4 MG Pantoprazole Sodium 40 mg DAILY IV 06/01/25 10:00 06/04/25 09:21 40 MG Midodrine 10 mg TID@0600,1200,1800 PO 06/02/25 18:00 06/04/25 11:30 10 MG Sodium Biphosphate/ Sodium Phosphate 135 ml BID NV 06/04/25 16:45 Bisacodyl 10 mg HS NV 06/04/25 22:00 Examination Pt is lying on bed General Appearance: Alert, Oriented X2, Cooperative, Not in acute distress HEENT: Atraumatic, Mucous membranes moist/pink Respiratory: Clear to auscultation, No added sounds, increased deep breathing Cardiovascular: Regular rate, Normal S1, Normal S2, No murmurs Abdominal: Active bowel sounds, Soft, no distention, no tenderness Extremities: No edema, Normal pulses, No tenderness/swelling, resting tremor seen in the right hand Skin: No Significant rash, except past surgical scars Neuro: Normal speech, sensorimotor deficits none Psych/Mental Status: Mental status NL, Mood NL Nurse was there as back tacker during examination laboratory and microbiology Laboratory Tests 06/04/25 07:24 Test 06/04/25 07:24 Range/Units Serum Glucose 84 74-106 mg/dL Microbiology Date/Time Source Procedure Growth Status 05/31/25 14:35 Urine - Catheterized Urine Culture - Final Complete 05/31/25 11:39 Blood Blood Culture - Preliminary NO GROWTH AFTER 72 HOURS OF INCUBATION. Resulted Labs and/or images reviewed: Labs reviewed by me, Image(s) reviewed by me Problem List/Assessment/Plan Problem List/Assessment/Plan #Sepsis due to Acute Gram-positive / negative bacterial pneumonia #Metabolic encephalopathy due to pneumonia versus urinary retention -Ceftriaxone 1 g IV daily -IV azithromycin 500 mg IV daily -Chest x-ray shows: The cardiac silhouette is unremarkable. The lungs demonstrate bilateral patchy airspace opacities, most pronounced in the left lower lobe. The pulmonary vasculature is prominent. There is no pleural effusion. There is no pneumothorax. -Respiratory therapy with albuterol 2.5, ipratropium bromide q.6 scheduled -ESR 14, CRP-0.58 -COVID/influenza tests, negative -sputum culture, pending blood culture, pending -ammonia normal, TSH normal - chest x-ray on 06/04 shows Airspace disease left lower lobe with pleural effusion. Probable gas-filled bowel below the right diaphragm however pneumoperitoneum is of clinical concern recommend CT abdomen and pelvis. -CT abd/pelvis shows: -Moderate to large left with small to moderate right-sided pleural effusions and associated atelectasis. -chest ultrasound ordered for pleural effusion, results pending #Acute urinary retention #Urinary incontinence #Hematuria #BPH -urine analysis shows 2+ protein, 3+ blood, trace leukocyte esterase, urine RBC 594, urine WBC 608, urine glucose trace with urine clarity ex.turbid -bladder scan showed 700 mL fluid retained -Campbell's catheter inserted -Tamsulosin 0.4 mg per orally daily - 06/01 cola colored blood noted in the urinary bag 06/01 USG bladder done shows Campbell catheter in the bladder. 87 mL of urine in the bladder. Areas debris noted in the dependent portion of the bladder measuring 5.8 x 1.8 x 6.7 cm. -repeat usg on same day showed : Campbell catheter is noted within the decompressed urinary bladder. 2.2 x 2.8 x 2 cm debris is noted within the urinary bladder. -07/02 urology consult suggested: Hold Eliquis,Removed the current Campbell catheter and place a [address] to start continuous bladder irrigation -06/02: blood clots in the urinary bag, continuous irrigation done, 3 way Campbell's catheter placed after removal of previous Campbell's -06/03: Hodgen urine draining, continuous irrigation continued -06/04 USG bladder shows: Small to moderate amount of debris within the bladder; 8 mm bladder stone versus intraluminal bladder air; Campbell catheter partially Decompressed the bladder. Bladder volume is 87 ml. -06/04 urology consult, suggested Cystoscopy with possible TURP and cystolitholapaxy on Saturday #hypotension -home medication telmisartan 20 mg tab not given as patient's blood pressure is controlled without - 06/02- BP in the morning 87/45 MAP 59, NS bolus 500ml given -patient given 2 boluses of 500 mL 0.9% normal saline -patient given albumin 25 g 1 bag -midodrine 10 mg t.i.d. # slow transit constipation -As seen in CT abdomen pelvis: Large amount of fecal material within the colon. -fleet enema twice a day scheduled -bisacodyl suppository 10 mg p.r. hs scheduled # Diabetes mellitus type 2, HbA1c 6.5 -Mild sliding scale insulin started #Hyperlipidemia -Continue home medication atorvastatin 40 mg HS -lipid profile came back normal today on 05/31 #Dementia, unspecified -Monitor #Hypothyroidism -Levothyroxine 75 mcg p.o. 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 p.o daily - Furosemide 40 mg p.o. daily - strict fluid restriction - I/O Monitor -06/02 Eliquis on hold as patient has gross hematuria # macrocytic anemia B12 low normal, supplemented GI prophylaxis: Protonix 40 mg IV daily DVT prophylaxis: SCD device Diet: cardiac diet Goals of care discussed with the patient's daughter over the phone, translation provided by nurse quiros, for more than 27 minutes: Full code status Case discussed with , patient and nurse. Plan discussed with: Patient, Other (rn) My Orders My Orders Orders - CIARA KINCAID Procedure Category Date Status Time Bladder US 06/04/25 Resulted 06:34 Chest Xray 1 View XY 06/04/25 Resulted 14:37 Chest Ultrasound US 06/04/25 Logged 17:05 Communication Order ORDERS 06/04/25 Transmitted 17:05 Dietary Evaluation Review Comments: Continue current plan of care Monitor PO intake, lab values, weight trend, and I/O Expected Outcomes/Goals: To meet >75% estimated needs Fu 3-5 days Date of Service: Jun 04, 2025 Billing Provider: MARS MCARTHUR MD Common Visit Codes: [id number] INP/OBS CARE(HIGH) CIARA KINCAID Jun 04, 2025 17:19 MARS MCARTHUR MD Jun 06, 2025 17:02
--- NOTE | 2025-06-04 17:59 | DVH ---
Exam: US CHEST ULTRASOUND Clinical History: left sided effusion Comparison: XY CHEST XRAY 1 VIEW on DOS: 06/04/25, XY CHEST PORTABLE on DOS: 05/30/25, CT CHEST WITHOUT CONTRAST on DOS: 01/24/25, XY CHEST PORTABLE on DOS: 01/23/25, XY CHEST XRAY 1 VIEW on DOS: 01/19/25 Technique: Targeted sonographic evaluation of the soft tissues of the bilateral chest was obtained utilizing gr ayscale and color Doppler imaging. Findings/Impression: Trace right and small left pleural effusion.
[2025-06-04] MEDS: BISACODYL 10 MG RECT SUPP PR SCH (21:26)
[2025-06-05] VITALS (15 sets, daily range): BP systolic 102–125; BP diastolic 56–78; PULSE 68–106; RESP 16–20; TEMP 97.4–99.5; O2SAT 96–100
[2025-06-05 07:51] LABS: Hematocrit 28.9 % (41.0-53.0); Hemoglobin 9.9 g/dL (13.5-17.5); Mean Corpuscular Hemoglobin 32.6 pg (28.0-32.0); Mean Corpuscular Volume 95.4 fL (80.0-100.0); Nucleated Red Blood Cells % 0.1 %
[2025-06-05 08:03] LABS: Anion Gap 10 (5-15); Carbon Dioxide 24 mmol/L (20-31); Chloride 104 mmol/L (98-107); Potassium 4.0 mmol/L (3.5-5.1); Sodium 138 mmol/L (136-145)
[2025-06-05 08:04] LABS: Calcium 8.7 mg/dL (8.7-10.4)
[2025-06-05 08:09] LABS: BUN/Creatinine Ratio 22.9 (10.0-20.0)
[2025-06-05 08:10] LABS: Blood Urea Nitrogen 25 mg/dL (9-23); Glucose 126 mg/dL (74-106)
--- NOTE | 2025-06-05 11:08 | DVHPN2 ---
Subjective Seen and examined at bedside, patient sleepy. CBI in place, urine is clear. I spoke to his granddaughter on the phone, updated on plan of care. Advised patient has CHF, high risk for Anesthesia. Changes from previous H/P or p: No Changes Objective Vitals Vital Signs Date Time Temp Pulse Resp B/P (MAP) Pulse Ox O2 Delivery O2 Flow Rate FiO2 06/05/25 09:17 97.4 94 18 125/77 (93) 98 97.4 06/05/25 07:10 Room Air* 0 21 Intake/Output Intake and Output 06/05/25 07:00 Intake Total 1830 ml Output Total 07576 ml Balance -8470 ml Intake Oral 1530 ml IV Total 300 ml Other 70688 ml # Bowel Movements 3 General Appearance: Alert, Cooperative Lungs: Other (Diminished) Cardiovascular: Regular rate, Normal S1, Normal S2 Abdomen: Normal bowel sounds, Soft Psych/Mental Status: Mental status NL Medications Current Medications Medications Dose Ordered Sig/Moni Route Start Time Stop Time Status Last Admin Dose Admin Apixaban 2.5 mg BID PO 05/30/25 22:00 Hold 06/01/25 10:07 2.5 MG Atorvastatin Calcium 40 mg HS PO 05/30/25 22:00 06/03/25 21:19 40 MG Levothyroxine Sodium 75 mcg QAM@0600 PO 05/31/25 06:00 06/04/25 06:02 75 MCG Ceftriaxone Sodium 50 ml @ 100 mls/hr DAILY@09 IV 05/31/25 09:00 06/05/25 09:35 100 MLS/HR Azithromycin 250 ml @ 125 mls/hr DAILY IV 05/31/25 10:00 06/05/25 09:35 125 MLS/HR Diagnostic Test (Pha) 1 strip ACHS 05/30/25 22:00 06/05/25 06:12 1 STRIP Insulin Human Regular ACHS SC 05/30/25 22:00 06/04/25 17:16 3 UNITS Dextrose 50 ml UD PRN IV 05/30/25 19:30 Ondansetron HCl 4 mg Q4HP PRN IV 05/30/25 19:30 Acetaminophen 650 mg Q6HP PRN PO 05/30/25 19:30 Ipratropium [place] 0.5 mg Q6HR NEB 05/31/25 12:00 06/05/25 07:10 0.5 MG Albuterol 2.5 mg Q6HR NEB 05/31/25 12:00 06/05/25 07:10 2.5 MG Tamsulosin HCl 0.4 mg QPM PO 05/31/25 18:00 06/04/25 17:09 0.4 MG Pantoprazole Sodium 40 mg DAILY IV 06/01/25 10:00 06/05/25 09:35 40 MG Midodrine 10 mg TID@0600,1200,1800 PO 06/02/25 18:00 06/04/25 17:09 10 MG Sodium Biphosphate/ Sodium Phosphate 135 ml BID NC 06/04/25 16:45 06/04/25 17:09 135 ML Bisacodyl 10 mg HS NC 06/04/25 22:00 Laboratory Results Laboratory Tests 06/05/25 06:21 Chemistry Test 06/05/25 06:21 Calcium Level 8.7 mg/dL (8.7-10.4) Urinalysis Test 06/01/25 16:00 Urine Color Red (Yellow) H Urine Clarity Ex.turbid (Clear) Urine pH 6.0 (5.0-9.0) Urine Specific [place] 1.019 (1.001-1.035) Urine Protein 2+ (Negative) H Urine Ketones Negative (Negative) Urine Blood 3+ /uL (Negative) H Urine Nitrite Negative (Negative) Urine Bilirubin Negative (Negative) Urine Urobilinogen Normal mg/dL (Negative) Urine Leukocyte Esterase Trace /uL (Negative) Urine RBC 594 /hpf (0 - 3) Urine WBC Clumps Present /hpf (None Seen) Urine Microscopic WBC 608 /HPF (0-3) H Urine Squamous Epithelial Cells None seen /hpf (<5) Urine Bacteria None seen /hpf (None Seen) Urine Glucose Trace mg/dL (Normal) Microbiology Microbiology Date/Time Source Procedure Growth Status 05/31/25 14:35 Urine - Catheterized Urine Culture - Final Complete 05/31/25 11:39 Blood Blood Culture - Preliminary NO GROWTH AFTER 72 HOURS OF INCUBATION. Resulted Assessment/Plan Assessment/Plan # Hematuria with UTI - CBI in place - Cystoscopy on Saturday - Rocephin IV # Possible Gram Neg PNA - Rocephin, completed 5 days of Zithromax # Urinary Obstruction - Elevated PSA - Cystoscopy on Beto # Chronic Systolic CHF - EF 20% - Spoke with family, advised patient is high risk of cardiovascular complications of with anesthesia Plan discussed with: Patient, Other (Granddaighter) My Orders Orders - LALO CARDOZO MD Procedure Category Date Status Time Kub Abdomen Single XY 06/05/25 Logged View 11:02 Date of Service: Jun 05, 2025 Billing Provider: LALO CARDOZO MD Common Visit Codes: [id number] INP/OBS CARE(HIGH) LALO CARDOZO MD Jun 05, 2025 11:08
--- NOTE | 2025-06-05 11:36 | DVH ---
Exam: XY KUB ABDOMEN SINGLE VIEW Indication: Ileus Comparison: CT CT AB PEL WO CON-NO ORAL OR IV on DOS: 06/04/25, US BLADDER on DOS: 06/04/25, US BLADDER on DOS: 06/01/25, US BLADDER on DOS: 06/01/25, CT CT AB PEL WO CON-NO ORAL OR IV on DOS: 02/04/24 Technique: Single frontal radiographic views of the abdomen. Findings: Nonobstructive bowel gas pattern noted. Large colonic stool burden There is no definite evidence for pneumoperitoneum. No abnormal calcifications noted. Impression: Nonobstructive bowel gas pattern noted. Large colonic stool burden.
[2025-06-05] MEDS: LACTULOSE 20Gm/30ML SOLN PO ONE (13:15)
[2025-06-06] VITALS (16 sets, daily range): BP systolic 113–156; BP diastolic 61–91; PULSE 66–100; RESP 14–20; TEMP 97.5–98.1; O2SAT 95–100
--- NOTE | 2025-06-06 12:31 | DVHPN2 ---
Subjective Seen and examined at bedside, Awake. Urine is clear. For Cystoscopy in AM. Changes from previous H/P or p: No Changes Objective Vitals Vital Signs Date Time Temp Pulse Resp B/P (MAP) Pulse Ox O2 Delivery O2 Flow Rate FiO2 06/06/25 11:31 87 16 100 06/06/25 11:24 Room Air* 0 21 06/06/25 09:00 98.0 156/80 (105) 98.0 Intake/Output Intake and Output 06/06/25 07:00 Intake Total 950 ml Output Total 57955 ml Balance -05018 ml Intake Oral 900 ml IV Total 50 ml Output Urine Total 6500 ml Other 10043 ml # Bowel Movements 7 General Appearance: Alert, Cooperative Lungs: Other (Diminished) Cardiovascular: Regular rate, Normal S1, Normal S2 Abdomen: Normal bowel sounds, Soft Psych/Mental Status: Mental status NL Medications Current Medications Medications Dose Ordered Sig/Moni Route Start Time Stop Time Status Last Admin Dose Admin Atorvastatin Calcium 40 mg HS PO 05/30/25 22:00 06/05/25 20:48 40 MG Levothyroxine Sodium 75 mcg QAM@0600 PO 05/31/25 06:00 06/06/25 05:03 75 MCG Ceftriaxone Sodium 50 ml @ 100 mls/hr DAILY@09 IV 05/31/25 09:00 06/06/25 08:26 100 MLS/HR Diagnostic Test (Pha) 1 strip ACHS 05/30/25 22:00 06/06/25 11:22 1 STRIP Insulin Human Regular ACHS SC 05/30/25 22:00 06/06/25 11:55 2 UNITS Dextrose 50 ml UD PRN IV 05/30/25 19:30 Ondansetron HCl 4 mg Q4HP PRN IV 05/30/25 19:30 Acetaminophen 650 mg Q6HP PRN PO 05/30/25 19:30 Ipratropium [place] 0.5 mg Q6HR NEB 05/31/25 12:00 06/06/25 11:24 0.5 MG Albuterol 2.5 mg Q6HR NEB 05/31/25 12:00 06/06/25 11:24 2.5 MG Tamsulosin HCl 0.4 mg QPM PO 05/31/25 18:00 06/05/25 16:48 0.4 MG Pantoprazole Sodium 40 mg DAILY IV 06/01/25 10:00 06/06/25 08:26 40 MG Midodrine 10 mg TID@0600,1200,1800 PO 06/02/25 18:00 06/06/25 11:22 10 MG Sodium Biphosphate/ Sodium Phosphate 135 ml BID [place] 06/04/25 16:45 06/05/25 20:49 135 ML Bisacodyl 10 mg HS [place] 06/04/25 22:00 06/05/25 20:49 10 MG Laboratory Results Laboratory Tests 06/05/25 06:21 Urinalysis Test 06/01/25 16:00 Urine Color Red (Yellow) H Urine Clarity Ex.turbid (Clear) Urine pH 6.0 (5.0-9.0) Urine Specific [place] 1.019 (1.001-1.035) Urine Protein 2+ (Negative) H Urine Ketones Negative (Negative) Urine Blood 3+ /uL (Negative) H Urine Nitrite Negative (Negative) Urine Bilirubin Negative (Negative) Urine Urobilinogen Normal mg/dL (Negative) Urine Leukocyte Esterase Trace /uL (Negative) Urine RBC 594 /hpf (0 - 3) Urine WBC Clumps Present /hpf (None Seen) Urine Microscopic WBC 608 /HPF (0-3) H Urine Squamous Epithelial Cells None seen /hpf (<5) Urine Bacteria None seen /hpf (None Seen) Urine Glucose Trace mg/dL (Normal) Microbiology Microbiology Date/Time Source Procedure Growth Status 05/31/25 14:35 Urine - Catheterized Urine Culture - Final Complete 05/31/25 11:39 Blood Blood Culture - Final NO GROWTH AFTER 5 DAYS OF INCUBATION. Complete Assessment/Plan Assessment/Plan # Hematuria with UTI - CBI in place - Cystoscopy on Saturday - Rocephin IV # Possible Gram Neg PNA - Rocephin, completed 5 days of Zithromax # Urinary Obstruction - Elevated PSA - Cystoscopy on Saturday # Chronic Systolic CHF - EF 20% - Spoke with family, advised patient is high risk of cardiovascular complications of with anesthesia Plan discussed with: Patient Date of Service: Jun 06, 2025 Billing Provider: LALO CARDOZO MD Common Visit Codes: [id number] INP/OBS CARE(MOD) LALO CARDOZO MD Jun 06, 2025 12:31
[2025-06-06 14:56] LABS: Hematocrit 27.6 % (41.0-53.0); Hemoglobin 9.4 g/dL (13.5-17.5); Mean Corpuscular Hemoglobin 32.9 pg (28.0-32.0); Mean Corpuscular Volume 96.9 fL (80.0-100.0); Nucleated Red Blood Cells % 0.0 %
[2025-06-06 15:12] LABS: Alanine Aminotransferase 12 U/L (7-40); Alkaline Phosphatase 57 U/L (46-116); Anion Gap 8 (5-15); BUN/Creatinine Ratio 24.5 (10.0-20.0); Bilirubin, Total 0.4 mg/dL (0.2-1.0); Carbon Dioxide 26 mmol/L (20-31); Chloride 104 mmol/L (98-107); Potassium 3.9 mmol/L (3.5-5.1); Sodium 138 mmol/L (136-145)
[2025-06-06 15:21] LABS: Albumin 2.9 g/dL (3.2-4.8); Blood Urea Nitrogen 24 mg/dL (9-23); Calcium 8.0 mg/dL (8.7-10.4); Glucose 160 mg/dL (74-106); Total Protein 5.2 g/dL (5.7-8.2)
[2025-06-07] VITALS (16 sets, daily range): BP systolic 113–148; BP diastolic 67–91; PULSE 58–105; RESP 12–20; TEMP 96–98.2; O2SAT 96–100
--- NOTE | 2025-06-07 11:55 | DVHPN2 ---
Subjective Patient doing well, Campbell inserted, and his baseline. Reviewed: Care Plan Changes from previous H/P or p: No Changes General: Per HPI Objective Vitals Vital Signs Date Time Temp Pulse Resp B/P (MAP) Pulse Ox O2 Delivery O2 Flow Rate FiO2 06/07/25 09:04 97.5 85 19 125/76 (92) 97 97.5 06/07/25 08:00 Room Air* 0 21 Intake/Output Intake and Output 06/07/25 07:00 Intake Total 1256 ml Output Total 4930 ml Balance -3674 ml Intake Oral 1256 ml Output Urine Total 4930 ml # Bowel Movements 1 Exam GEN: Healthy appearing, well-developed, NAD. HEENT: NC/AT; MMM. CV: RRR, no m/r/g. LUNGS: CTAB, no w/r/c. ABD: Soft, NT/ND, NBS, no masses or organomegaly. Campbell inserted EXT: skin Warm, well perfused. no rashes. No clubbing, cyanosis, or edema. NEURO: No focal deficits at baseline mentation General Appearance: Alert, Cooperative Lungs: Other (Diminished) Cardiovascular: Regular rate, Normal S1, Normal S2 Abdomen: Normal bowel sounds, Soft Psych/Mental Status: Mental status NL Medications Current Medications Medications Dose Ordered Sig/Moni Route Start Time Stop Time Status Last Admin Dose Admin Atorvastatin Calcium 40 mg HS PO 05/30/25 22:00 06/06/25 21:55 40 MG Levothyroxine Sodium 75 mcg QAM@0600 PO 05/31/25 06:00 06/07/25 04:42 75 MCG Ceftriaxone Sodium 50 ml @ 100 mls/hr DAILY@09 IV 05/31/25 09:00 06/07/25 09:09 100 MLS/HR Diagnostic Test (Pha) 1 strip ACHS 05/30/25 22:00 06/07/25 11:15 1 STRIP Insulin Human Regular ACHS SC 05/30/25 22:00 06/06/25 22:10 2 UNITS Dextrose 50 ml UD PRN IV 05/30/25 19:30 Ondansetron HCl 4 mg Q4HP PRN IV 05/30/25 19:30 Acetaminophen 650 mg Q6HP PRN PO 05/30/25 19:30 Ipratropium [place] 0.5 mg Q6HR NEB 05/31/25 12:00 06/07/25 07:16 0.5 MG Albuterol 2.5 mg Q6HR NEB 05/31/25 12:00 06/07/25 07:16 2.5 MG Tamsulosin HCl 0.4 mg QPM PO 05/31/25 18:00 06/06/25 17:43 0.4 MG Pantoprazole Sodium 40 mg DAILY IV 06/01/25 10:00 06/07/25 10:40 40 MG Midodrine 10 mg TID@0600,1200,1800 PO 06/02/25 18:00 06/07/25 11:15 10 MG Sodium Biphosphate/ Sodium Phosphate 135 ml BID IA 06/04/25 16:45 06/06/25 21:55 135 ML Bisacodyl 10 mg HS IA 06/04/25 22:00 06/06/25 21:56 10 MG Laboratory Results Laboratory Tests 06/06/25 14:40 Chemistry Test 06/06/25 14:40 Albumin 2.9 g/dL (3.2-4.8) L Calcium Level 8.0 mg/dL (8.7-10.4) L Total Protein 5.2 g/dL (5.7-8.2) L Cardiac Markers Test 06/06/25 14:40 B-Type Natriuretic Peptide 146.21 pg/mL (0-100) LFT Test 06/06/25 14:40 Alanine Aminotransferase (ALT) 12 U/L (7-40) Alkaline Phosphatase 57 U/L (46-116) Aspartate Amino Transferase (AST) 18 U/L (13-40) Total Bilirubin 0.4 mg/dL (0.2-1.0) Urinalysis Test 06/01/25 16:00 Urine Color Red (Yellow) H Urine Clarity Ex.turbid (Clear) Urine pH 6.0 (5.0-9.0) Urine Specific [place] 1.019 (1.001-1.035) Urine Protein 2+ (Negative) H Urine Ketones Negative (Negative) Urine Blood 3+ /uL (Negative) H Urine Nitrite Negative (Negative) Urine Bilirubin Negative (Negative) Urine Urobilinogen Normal mg/dL (Negative) Urine Leukocyte Esterase Trace /uL (Negative) Urine RBC 594 /hpf (0 - 3) Urine WBC Clumps Present /hpf (None Seen) Urine Microscopic WBC 608 /HPF (0-3) H Urine Squamous Epithelial Cells None seen /hpf (<5) Urine Bacteria None seen /hpf (None Seen) Urine Glucose Trace mg/dL (Normal) Microbiology Microbiology Date/Time Source Procedure Growth Status 05/31/25 14:35 Urine - Catheterized Urine Culture - Final Complete 05/31/25 11:39 Blood Blood Culture - Final NO GROWTH AFTER 5 DAYS OF INCUBATION. Complete Labs and/or images reviewed: Labs reviewed by me, Image(s) reviewed by me Assessment/Plan Assessment/Plan 84-year-old male presents for evaluation of generalized weakness. Patient is currently alert and oriented x3. Family patient's family called EMS for evaluation due to patient becoming progressively weaker and altered since yesterday. He has been eating less than normal according to his family. Daughter also states that patient has been complaining of neck and upper back pain. Patient is a poor historian. He was noted to be hypotensive in the field in the 80s, and given normal saline bolus which improved his blood pressure to the 100s. No focal deficits noted. PMH: Diabetes mellitus, hypertension, hypothyroidism, dementia PSH: Appendectomy Family history: Reviewed and noncontributory to the management of this case Social history: Patient lives with family, denies any smoking, alcohol, drugs ROS: Patient was seen by me at the bedside. patient is a poor historian. He only complains of pain in his neck. He has oriented to time place and person but confused. Nurse reported that the patient has urinary incontinence and a bladder scan was done which showed 700 mL fluid retention and urinary catheter was placed. Chest x-ray shows possibility of pneumonia and we are treating him with ceftriaxone, azithromycin, breathing treatments with albuterol and ipratropium bromide. COVID/influenza test, sputum culture, blood culture is pending. 06/01: Patient was seen by me at the bedside. Patient reports that he has slight cough which is dry without phlegm. Today we noticed cola colored blood in his urinary bag. USG shows Campbell catheter in the bladder. 87 mL of urine in the bladder. Areas debris noted in the dependent portion of the bladder measuring 5.8 x 1.8 x 6.7 cm. neurology consult has been done, suggested: Hold Eliquis,Removed the current Campbell catheter and place a [address] to start continuous bladder irrigation 06/02: patient was seen by me at the bedside. Patient reports that he has no new active complaints. He seems alert the normal. He was able to understand what I was seeing and I explained to him why he has been hospitalized. Overnight the old Campbell's was discontinued and a 3 way Campbell's was added with continuous bladder irrigation. Nurse reports that the clots in the urinary bag and be manually irrigated. Patient's blood pressure was 87/45 MAP 59 so 500 mL bolus fluid was given. Two more boluses of 0.9% normal saline has been given because of the low blood pressure. 1 bag albumin 25 g has also been given. Clear straw-colored urine noticed in Campbell's today that later became slightly pink. 06/03: Patient was seen by me at the bedside. Today the patient did not want to speak. Nurse reported no overnight events and the urinary bag shows pink urine and irrigation is ongoing. Urology consult, pending 06/04: Patient was seen by me at the bedside. Repeat USG bladder was done which showed Small to moderate amount of debris within the bladder; 8 mm bladder stone versus intraluminal bladder air; Campbell catheter partially Decompressed the bladder. Bladder volume is 87 ml. Urology consult suggested Cystoscopy with possible TURP and cystolitholapaxy on Thursday 06/07: Patient taken to OR today for cystoscopy. 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 t.i.d. Tele Full code Plan discussed with: Patient Date of Service: Jun 07, 2025 Billing Provider: MARS MCARTHUR MD Common Visit Codes: [id number] INP/OBS CARE(HIGH) MARS MCARTHUR MD Jun 07, 2025 11:55
[2025-06-07] MEDS: CIPROFLOXACIN 400MG/200ML 200 ML IV ONE (13:28)
[2025-06-07] MEDS ORDERED: fentaNYL CITRATE 100 MCG/2 ML VL ONE (15:00)
[2025-06-07] MEDS ORDERED: PROPOFOL 10 MG/ML 20 ML IV ONE (15:01)
--- NOTE | 2025-06-07 16:15 | DVHNC2 ---
Procedure - OPERATIVE REPORT Pre-op. 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 Diagnosis: Same as pre-op diagnosis Operation: Transurethral resection/vaporization of prostate gland (BUTTON) Anesthesia: General Indications: Patient has symptomatic BPH with LUTs and bladder outlet obstruction. The indications, risks, complications, alternatives and benefits of transurethral vaporization/resection of prostate gland are discussed with patient. All questions were encouraged and answered. He is aware of specific risk/complications including but not limited to infection, bleeding, urinary incontinence, impotence, retrograde ejaculation, recurrent scar formation (strictures) and possible need for additional therapy(-ies). He is also aware of the alternative of this procedure including conservative management, medical therapy, minimally invasive procedures such as TUNA, TUMT, Urolift, and other forms of prostatectomy such as laser enucleation and open simple prostatectomy. Patient is competent and understands the discussion. He elected to proceed. Details of Procedure: Button TURP: After administration of anesthesia in the lithotomy position, area of genitalia was prepped and draped in usual sterile fashion. The 26F resectoscope sheath is introduced into the bladder under direct vision. Using the Olympus bipolar Button resecting element and NS irrigation, prostate gland was electrodesiccated in systematic fashion using the standard cautery settings from the bladder neck to verumontanum, taking care not to injure the external sphincter. The ureteric orifices are noted and avoided of any thermal injury. [address] Campbell catheter is placed for postoperative irrigation and drainage of bladder. Patient tolerated the procedure well. He was awaken and taken to RR in stable condition. All instrument counts were correct at the end of the procedure. Specimens: The prostatic tissue specimens are sent to pathology for evaluation. Complications: None Findings: EBL: < 20ml ERUM PRO MD Jun 07, 2025 16:15
[2025-06-08] VITALS (22 sets, daily range): BP systolic 108–126; BP diastolic 66–76; PULSE 63–95; RESP 14–20; TEMP 96.2–98.6; O2SAT 95–100
[2025-06-08 06:48] LABS: Hemoglobin 10.3 g/dL (13.5-17.5); Nucleated Red Blood Cells % 0.1 %
[2025-06-08 06:53] LABS: Hematocrit 29.0 % (41.0-53.0); Mean Corpuscular Hemoglobin 36.3 pg (28.0-32.0); Mean Corpuscular Volume 102.1 fL (80.0-100.0)
[2025-06-08 07:03] LABS: Alanine Aminotransferase 11 U/L (7-40); Alkaline Phosphatase 60 U/L (46-116); Anion Gap 8 (5-15); BUN/Creatinine Ratio 18.1 (10.0-20.0); Blood Urea Nitrogen 13 mg/dL (9-23); Carbon Dioxide 26 mmol/L (20-31); Chloride 103 mmol/L (98-107); Potassium 3.9 mmol/L (3.5-5.1); Sodium 137 mmol/L (136-145)
[2025-06-08 07:05] LABS: Bilirubin, Total 0.5 mg/dL (0.2-1.0)
[2025-06-08 07:22] LABS: Albumin 3.2 g/dL (3.2-4.8); Calcium 8.4 mg/dL (8.7-10.4); Glucose 127 mg/dL (74-106); Total Protein 5.4 g/dL (5.7-8.2)
--- NOTE | 2025-06-08 09:19 | DVHPN2 ---
Progress Note - Dictate Date Seen: Jun 08, 2025 Medical Necessity Reason Pt with a Central, PICC or Fol: Yes The following are medically ne: Myrick Catheter Medical Necessity Reason Postop day 1. Status post TURP Subjective Tolerating myrick and CBI vital signs Vital Sign Date Time Temp Pulse Resp B/P (MAP) Pulse Ox O2 Delivery O2 Flow Rate FiO2 06/08/25 06:23 95 Room Air* 0 21 06/08/25 06:18 84 18 06/08/25 05:02 98.6 120/72 (88) 98.6 Total Intake and Output 06/07/25 06/07/25 06/08/25 15:00 23:00 07:00 Intake Total 50 ml 150 ml 480 ml Output Total 1700 ml 2000 ml 1800 ml Balance -1650 ml -1850 ml -1320 ml medications Current Medications Medications Dose Ordered Sig/Moni Route Start Time Stop Time Status Last Admin Dose Admin Atorvastatin Calcium 40 mg HS PO 05/30/25 22:00 06/07/25 21:56 40 MG Levothyroxine Sodium 75 mcg QAM@0600 PO 05/31/25 06:00 06/08/25 06:39 75 MCG Ceftriaxone Sodium 50 ml @ 100 mls/hr DAILY@09 IV 05/31/25 09:00 06/07/25 09:09 100 MLS/HR Diagnostic Test (Pha) 1 strip ACHS 05/30/25 22:00 06/08/25 07:04 1 STRIP Insulin Human Regular ACHS SC 05/30/25 22:00 06/08/25 06:44 2 UNITS Dextrose 50 ml UD PRN IV 05/30/25 19:30 Ondansetron HCl 4 mg Q4HP PRN IV 05/30/25 19:30 Acetaminophen 650 mg Q6HP PRN PO 05/30/25 19:30 Ipratropium [place] 0.5 mg Q6HR NEB 05/31/25 12:00 06/08/25 06:18 0.5 MG Albuterol 2.5 mg Q6HR NEB 05/31/25 12:00 06/08/25 06:18 2.5 MG Tamsulosin HCl 0.4 mg QPM PO 05/31/25 18:00 06/07/25 17:09 0.4 MG Pantoprazole Sodium 40 mg DAILY IV 06/01/25 10:00 06/07/25 10:40 40 MG Midodrine 10 mg TID@0600,1200,1800 PO 06/02/25 18:00 06/08/25 06:39 10 MG Sodium Biphosphate/ Sodium Phosphate 135 ml BID [place] 06/04/25 16:45 06/06/25 21:55 135 ML Bisacodyl 10 mg HS [place] 06/04/25 22:00 06/07/25 21:58 10 MG objective Urine is clear on low CBI mode. laboratory and microbiology Laboratory Tests 06/08/25 06:06 Test 06/08/25 06:06 Range/Units Serum Glucose 127 H 74-106 mg/dL Problem List Status post TURP Assessment/Plan No bladder stone found. CBI held We will remove Myrick catheter and forearm Dietary Evaluation Review Comments: Continue current plan of care Monitor PO intake, lab values, weight trend, and I/O Expected Outcomes/Goals: To meet >75% estimated needs Fu 3-5 days Plan discussed with: Patient, Other ERUM PRO MD Jun 08, 2025 09:19
--- NOTE | 2025-06-08 11:12 | DVHPN2 ---
Subjective Patient doing well, Campbell inserted, and his baseline. Reviewed: Care Plan Changes from previous H/P or p: No Changes General: Per HPI Objective Vitals Vital Signs Date Time Temp Pulse Resp B/P (MAP) Pulse Ox O2 Delivery O2 Flow Rate FiO2 06/08/25 09:00 98.4 73 17 122/71 (88) 98 98.4 06/08/25 08:10 Room Air* 0 21 Intake/Output Intake and Output 06/08/25 07:00 Intake Total 680 ml Output Total 5500 ml Balance -4820 ml Intake Oral 630 ml IV Total 50 ml Output Urine Total 5500 ml # Bowel Movements 1 Exam GEN: Healthy appearing, well-developed, NAD. HEENT: NC/AT; MMM. CV: RRR, no m/r/g. LUNGS: CTAB, no w/r/c. ABD: Soft, NT/ND, NBS, no masses or organomegaly. Campbell inserted EXT: skin Warm, well perfused. no rashes. No clubbing, cyanosis, or edema. NEURO: No focal deficits at baseline mentation General Appearance: Alert, Cooperative Lungs: Other (Diminished) Cardiovascular: Regular rate, Normal S1, Normal S2 Abdomen: Normal bowel sounds, Soft Psych/Mental Status: Mental status NL Medications Current Medications Medications Dose Ordered Sig/Moni Route Start Time Stop Time Status Last Admin Dose Admin Atorvastatin Calcium 40 mg HS PO 05/30/25 22:00 06/07/25 21:56 40 MG Levothyroxine Sodium 75 mcg QAM@0600 PO 05/31/25 06:00 06/08/25 06:39 75 MCG Ceftriaxone Sodium 50 ml @ 100 mls/hr DAILY@09 IV 05/31/25 09:00 06/08/25 09:52 100 MLS/HR Diagnostic Test (Pha) 1 strip ACHS 05/30/25 22:00 06/08/25 07:04 1 STRIP Insulin Human Regular ACHS SC 05/30/25 22:00 06/08/25 06:44 2 UNITS Dextrose 50 ml UD PRN IV 05/30/25 19:30 Ondansetron HCl 4 mg Q4HP PRN IV 05/30/25 19:30 Acetaminophen 650 mg Q6HP PRN PO 05/30/25 19:30 Ipratropium [place] 0.5 mg Q6HR NEB 05/31/25 12:00 06/08/25 06:18 0.5 MG Albuterol 2.5 mg Q6HR NEB 05/31/25 12:00 06/08/25 06:18 2.5 MG Tamsulosin HCl 0.4 mg QPM PO 05/31/25 18:00 06/07/25 17:09 0.4 MG Pantoprazole Sodium 40 mg DAILY IV 06/01/25 10:00 06/08/25 09:52 40 MG Midodrine 10 mg TID@0600,1200,1800 PO 06/02/25 18:00 06/08/25 06:39 10 MG Sodium Biphosphate/ Sodium Phosphate 135 ml BID [place] 06/04/25 16:45 06/06/25 21:55 135 ML Bisacodyl 10 mg HS [place] 06/04/25 22:00 06/07/25 21:58 10 MG Laboratory Results Laboratory Tests 06/08/25 06:06 Chemistry Test 06/08/25 06:06 Albumin 3.2 g/dL (3.2-4.8) Calcium Level 8.4 mg/dL (8.7-10.4) L Total Protein 5.4 g/dL (5.7-8.2) L LFT Test 06/08/25 06:06 Alanine Aminotransferase (ALT) 11 U/L (7-40) Alkaline Phosphatase 60 U/L (46-116) Aspartate Amino Transferase (AST) 19 U/L (13-40) Total Bilirubin 0.5 mg/dL (0.2-1.0) Urinalysis Test 06/01/25 16:00 Urine Color Red (Yellow) H Urine Clarity Ex.turbid (Clear) Urine pH 6.0 (5.0-9.0) Urine Specific [place] 1.019 (1.001-1.035) Urine Protein 2+ (Negative) H Urine Ketones Negative (Negative) Urine Blood 3+ /uL (Negative) H Urine Nitrite Negative (Negative) Urine Bilirubin Negative (Negative) Urine Urobilinogen Normal mg/dL (Negative) Urine Leukocyte Esterase Trace /uL (Negative) Urine RBC 594 /hpf (0 - 3) Urine WBC Clumps Present /hpf (None Seen) Urine Microscopic WBC 608 /HPF (0-3) H Urine Squamous Epithelial Cells None seen /hpf (<5) Urine Bacteria None seen /hpf (None Seen) Urine Glucose Trace mg/dL (Normal) Microbiology Microbiology Date/Time Source Procedure Growth Status 05/31/25 14:35 Urine - Catheterized Urine Culture - Final Complete 05/31/25 11:39 Blood Blood Culture - Final NO GROWTH AFTER 5 DAYS OF INCUBATION. Complete Labs and/or images reviewed: Labs reviewed by me, Image(s) reviewed by me Assessment/Plan Assessment/Plan 84-year-old male with past medical history Diabetes mellitus, hypertension, hypothyroidism, dementia presents for evaluation of generalized weakness. Patient is currently alert and oriented x3. Family patient's family called EMS for evaluation due to patient becoming progressively weaker and altered since yesterday. He has been eating less than normal according to his family. Daughter also states that patient has been complaining of neck and upper back pain. Patient is a poor historian. He was noted to be hypotensive in the field in the 80s, and given normal saline bolus which improved his blood pressure to the 100s. No focal deficits noted. 06/01: Patient was seen by me at the bedside. Patient reports that he has slight cough which is dry without phlegm. Today we noticed cola colored blood in his urinary bag. USG shows Campbell catheter in the bladder. 87 mL of urine in the bladder. Areas debris noted in the dependent portion of the bladder measuring 5.8 x 1.8 x 6.7 cm. neurology consult has been done, suggested: Hold Eliquis,Removed the current Campbell catheter and place a [address] to start continuous bladder irrigation 06/02: patient was seen by me at the bedside. Patient reports that he has no new active complaints. He seems alert the normal. He was able to understand what I was seeing and I explained to him why he has been hospitalized. Overnight the old Campbell's was discontinued and a 3 way Campbell's was added with continuous bladder irrigation. Nurse reports that the clots in the urinary bag and be manually irrigated. Patient's blood pressure was 87/45 MAP 59 so 500 mL bolus fluid was given. Two more boluses of 0.9% normal saline has been given because of the low blood pressure. 1 bag albumin 25 g has also been given. Clear straw-colored urine noticed in Campbell's today that later became slightly pink. 06/03: Patient was seen by me at the bedside. Today the patient did not want to speak. Nurse reported no overnight events and the urinary bag shows pink urine and irrigation is ongoing. Urology consult, pending 06/04: Patient was seen by me at the bedside. Repeat USG bladder was done which showed Small to moderate amount of debris within the bladder; 8 mm bladder stone versus intraluminal bladder air; Campbell catheter partially Decompressed the bladder. Bladder volume is 87 ml. Urology consult suggested Cystoscopy with possible TURP and cystolitholapaxy on Thursday 06/07: Patient taken to OR today for cystoscopy. We will follow up with Urology for outpatient plan 06/08: Patient is CBI was stopped by Urology this a.m.. We will give patient slow fluids to see if we can increase urine output, careful fluids patient has history of HFrEF. Once urine clearing up and making good adequate urine output we will discuss plan for discharge with Urology for with or without Campbell. Possible DC tomorrow. Diagnosis: #Hematuria .#Acute urinary retention #Urinary incontinence #BPH #Sepsis due to Acute Gram-positive / negative bacterial pneumonia #Metabolic encephalopathy due to pneumonia versus urinary retention #hypotension # slow transit constipation # Diabetes mellitus type 2, HbA1c 6.5 #Hyperlipidemia #Dementia, unspecified #Hypothyroidism #CHF, systolic, HFrEF 25%, NYHA 3 # AFib /flutter # macrocytic anemia Plan: Prn pain control IV antibiotics Duo nebs q.6 Lipitor Bisacodyl suppository Fleet enema twice daily Levothyroxine pale Midodrine 10 p.o. t.i.d. Tele Full code Plan discussed with: Patient Date of Service: Jun 08, 2025 Billing Provider: MARS MCARTHUR MD Common Visit Codes: [id number] INP/OBS CARE(HIGH) MARS MCARTHUR MD Jun 08, 2025 11:12
[2025-06-08] MEDS: LACTATED RINGER'S 1,000 ML IV ONE ×2 (12:00→17:42)
[2025-06-09] VITALS (10 sets, daily range): BP systolic 118–139; BP diastolic 65–85; PULSE 58–88; RESP 16–18; TEMP 97.7–98.3; O2SAT 94–100
[2025-06-09] MEDS ORDERED: MID10T PO (14:47)
[2025-06-09] MEDS ORDERED: TAMS-35 PO (14:47)
--- NOTE | 2025-06-09 14:53 | DVHDS2 ---
Discharge Summary Date of Admission May 30, 2025 at 19:51 Date of Discharge: Jun 09, 2025 Labs/Diagnostic Data: Laboratory Results Test 06/09/25 10:49 06/08/25 06:06 06/06/25 14:40 06/04/25 18:00 POC Glucose 114 mg/dl (70-106) White Blood Count 5.5 10^3/uL (4.4-10.8) Red Blood Count 2.84 10^6/uL (4.5-5.90) Hemoglobin 10.3 g/dL (13.5-17.5) Hematocrit 29.0 % (41.0-53.0) Mean Corpuscular Volume 102.1 fL (80.0-100.0) Mean Corpuscular Hemoglobin 36.3 pg (28.0-32.0) Mean Corpuscular Hemoglobin Concent 35.5 g/dL (32.0-36.0) Red Cell Distribution Width 14.8 % (11.8-14.3) Platelet Count 106 10^3/uL (140-450) Mean Platelet Volume 7.8 fL (6.9-10.8) Neutrophils (%) (Auto) 73.1 % (37.0-80.0) Lymphocytes (%) (Auto) 15.3 % (10.0-50.0) Monocytes (%) (Auto) 7.5 % (0.0-12.0) Eosinophils (%) (Auto) 3.5 % (0.0-7.0) Basophils (%) (Auto) 0.6 % (0.0-2.0) Neutrophils # (Auto) 4.0 10 ^3/uL (1.6-8.6) Lymphocytes # (Auto) 0.8 10 ^3/uL (0.4-5.4) Monocytes # (Auto) 0.4 10 ^3/uL (0-1.3) Eosinophils # (Auto) 0.2 10 ^3/uL (0-0.8) Basophils # (Auto) 0 10 ^3/uL (0-0.2) Nucleated Red Blood Cells 0.1 % Sodium Level 137 mmol/L (136-145) Potassium Level 3.9 mmol/L (3.5-5.1) Chloride Level 103 mmol/L (98-107) Carbon Dioxide Level 26 mmol/L (20-31) Anion Gap 8 (5-15) Blood Urea Nitrogen 13 mg/dL (9-23) Creatinine 0.72 mg/dL (0.700-1.30) Glomerular Filtration Rate Calc 90 mL/min (>90) BUN/Creatinine Ratio 18.1 (10.0-20.0) Serum Glucose 127 mg/dL (74-106) Calcium Level 8.4 mg/dL (8.7-10.4) Total Bilirubin 0.5 mg/dL (0.2-1.0) Aspartate Amino Transferase (AST) 19 U/L (13-40) Alanine Aminotransferase (ALT) 11 U/L (7-40) Alkaline Phosphatase 60 U/L (46-116) Total Protein 5.4 g/dL (5.7-8.2) Albumin 3.2 g/dL (3.2-4.8) B-Type Natriuretic Peptide 146.21 pg/mL (0-100) Stool Occult Blood Negative (Negative) Stool Occult Blood Sample #3 (Negative) Test 06/03/25 10:37 06/01/25 16:00 05/31/25 21:00 05/31/25 15:22 Prothrombin Time 11.7 sec (9.3-11.8) Prothrombin Time INR 1.12 (0.9-1.15) Activated Partial Thromboplast Time 34.2 SEC (24.5-34.5) Urine Color Red (Yellow) Urine Clarity Ex.turbid (Clear) Urine pH 6.0 (5.0-9.0) Urine Specific [place] 1.019 (1.001-1.035) Urine Protein 2+ (Negative) Urine Ketones Negative (Negative) Urine Blood 3+ /uL (Negative) Urine Nitrite Negative (Negative) Urine Bilirubin Negative (Negative) Urine Urobilinogen Normal mg/dL (Negative) Urine Leukocyte Esterase Trace /uL (Negative) Urine RBC 594 /hpf (0 - 3) Urine WBC Clumps Present /hpf (None Seen) Urine Microscopic WBC 608 /HPF (0-3) Urine Squamous Epithelial Cells None seen /hpf (<5) Urine Bacteria None seen /hpf (None Seen) Urine Glucose Trace mg/dL (Normal) Influenza Type A Antigen Negative (Negative) Influenza Type B Antigen Negative (Negative) SARS-CoV-2 Antigen (Rapid) Negative (NEGATIVE) Ammonia < 10 umol/L (11-32) Test 05/31/25 13:15 05/31/25 05:31 05/31/25 01:11 05/30/25 15:35 Free Prostate Specific Antigen 1.43 ng/mL (N/A) Percent Free Prostate Specific Ag 31.8 % (.) Prostate Specific Antigen Total 4.5 ng/mL (0.0-4.0) Vitamin B12 Level 364 pg/mL (211-911) Erythrocyte Sedimentation Rate 14 mm/hr (0-20) Hemoglobin A1c 6.5 % A1C (<5.7) Direct Bilirubin 0.3 mg/dL (<0.3) C-Reactive Protein High Sensitivity 0.58 mg/dL (<1.0) Triglycerides Level 70 mg/dL (< 150) Cholesterol Level 70 mg/dL (< 200) LDL Cholesterol 36 mg/dL (< 100) HDL Cholesterol 26 mg/dL (40-59) Thyroid Stimulating Hormone (TSH) 1.18 uIU/mL (0.55-4.78) Lactic Acid Level 1.5 mmol/L (0.4-2.0) Platelet Estimate Decreased Large Platelets Few Anisocytosis (manual) Slight Jorge Luis Cells Few Troponin I High Sensitivity 16 ng/L (</=54) Other Laboratory Tests 06/08/25 06:06 Brief Hx & Hospital Course: 84-year-old male with past medical history Diabetes mellitus, hypertension, hypothyroidism, dementia presents for evaluation of generalized weakness. Patient is currently alert and oriented x3. Family patient's family called EMS for evaluation due to patient becoming progressively weaker and altered since yesterday. He has been eating less than normal according to his family. Daughter also states that patient has been complaining of neck and upper back pain. Patient is a poor historian. He was noted to be hypotensive in the field in the 80s, and given normal saline bolus which improved his blood pressure to the 100s. No focal deficits noted. 06/01: Patient was seen by me at the bedside. Patient reports that he has slight cough which is dry without phlegm. Today we noticed cola colored blood in his urinary bag. USG shows Campbell catheter in the bladder. 87 mL of urine in the bladder. Areas debris noted in the dependent portion of the bladder measuring 5.8 x 1.8 x 6.7 cm. neurology consult has been done, suggested: Hold Eliquis,Removed the current Campbell catheter and place a [address] to start continuous bladder irrigation 06/02: patient was seen by me at the bedside. Patient reports that he has no new active complaints. He seems alert the normal. He was able to understand what I was seeing and I explained to him why he has been hospitalized. Overnight the old Campbell's was discontinued and a 3 way Campbell's was added with continuous bladder irrigation. Nurse reports that the clots in the urinary bag and be manually irrigated. Patient's blood pressure was 87/45 MAP 59 so 500 mL bolus fluid was given. Two more boluses of 0.9% normal saline has been given because of the low blood pressure. 1 bag albumin 25 g has also been given. Clear straw-colored urine noticed in Campbell's today that later became slightly pink. 06/03: Patient was seen by me at the bedside. Today the patient did not want to speak. Nurse reported no overnight events and the urinary bag shows pink urine and irrigation is ongoing. Urology consult, pending 06/04: Patient was seen by me at the bedside. Repeat USG bladder was done which showed Small to moderate amount of debris within the bladder; 8 mm bladder stone versus intraluminal bladder air; Campbell catheter partially Decompressed the bladder. Bladder volume is 87 ml. Urology consult suggested Cystoscopy with possible TURP and cystoscopy on Thursday 06/07: Patient taken to OR today for cystoscopy. We will follow up with Urology for outpatient plan 06/08: Patient is CBI was stopped by Urology this a.m.. We will give patient slow fluids to see if we can increase urine output, careful fluids patient has history of HFrEF. Once urine clearing up and making good adequate urine output we will discuss plan for discharge with Urology for with or without Campbell. Possible DC tomorrow. : Patient urine clearing up Urology in agreement to remove Campbell. Patient bladder without distention. Stable for discharge as per plan below. Diagnosis: #Hematurias/p TURP 06/07/25 ruled out bladder stones ruled out bladder clots bladder outlet obstruction #Acute urinary retention #Urinary incontinence #BPH with LUTS s/p TURP 06/07/25 #Sepsis due to Acute Gram-positive / negative bacterial pneumonia #Metabolic encephalopathy due to pneumonia versus urinary retention #hypotension # slow transit constipation # Diabetes mellitus type 2, HbA1c 6.5 #Hyperlipidemia #Dementia, unspecified #Hypothyroidism #CHF, systolic, HFrEF 25%, NYHA 3 # AFib /flutter # macrocytic anemia Discharge plan: - Discharge home, home PT, [facility] transport home. - puree diet. advance as tolerate. - Hold off Eliquis until PCP follow up outpatient 1 week. PCP to determine continuation of -Eliquis for AFib - Continue Lipitor, Synthroid, MiraLAX,. - Stops Pioglitazone, telmisartan, potassium chloride. - Start midodrine 10 mg t.i.d., start tamsulosin 0.4 mg daily. - Follow up with Urology outpatient 1-2 week Condition at Discharge: Fair Final Diagnosis/Problems List #Hematurias/p TURP 06/07/25 ruled out bladder stones ruled out bladder clots bladder outlet obstruction #Acute urinary retention #Urinary incontinence #BPH with LUTS s/p TURP 06/07/25 #Sepsis due to Acute Gram-positive / negative bacterial pneumonia #Metabolic encephalopathy due to pneumonia versus urinary retention #hypotension # slow transit constipation # Diabetes mellitus type 2, HbA1c 6.5 #Hyperlipidemia #Dementia, unspecified #Hypothyroidism #CHF, systolic, HFrEF 25%, NYHA 3 # AFib /flutter # macrocytic anemia Discharge Disposition: Home with Health Services Discharge Instruct/Medications Diet: See Comment Diet comment: - puree diet. advance as tolerate. Activity: No Restrictions, As Tolerated Follow Up/Referral: See below Medications: See below Scheduled Apixaban Base (Eliquis), 2.5 MG PO BID Aspirin (Aspirin Low Dose), 1 TAB PO DAILY, (Reported) Atorvastatin Calcium (Atorvastatin Calcium), 1 TAB PO HS, (Reported) Furosemide (Furosemide), 1 TAB PO DAILY Levothyroxine Sodium (Synthroid), 1 TAB PO DAILY Midodrine HCl (Midodrine HCl), 10 MG PO BID Multiple Vitamin (Multivitamins), 1 TAB PO DAILY, (Reported) Pioglitazone Hydrochloride (Pioglitazone Hcl), 1 TAB PO DAILY, (Reported) Polyethylene Glycol 3350 (Miralax), 17 GM PO BID Potassium Chloride (Potassium Chloride ER), 1 TAB PO BID, (Reported) Tamsulosin Hcl (Flomax), 1 CAP PO DAILY Telmisartan (Telmisartan), 1 TAB PO DAILY, (Reported) Discharge Statement: "Patient was advised to return to the ER or call 911 if any headaches, dizziness, shortness of breath, chest pain, abdominal pain, bleeding, fevers, or worsening of medical condition. Patient was counseled about treatment plan, medications, possible side effects, patientverbalized understanding. All questions were answered to the best of my ability. This discharge took greater then 30 minutes in planning, reviewing documentation, counseling the patient, and discussing with other team members." Date of Service: Jun 09, 2025 Billing Provider: MARS MCARTHUR MD Common Visit Codes: 59747-ZBO/OBS DISCH DAY >30min MARS MCARTHUR MD Jun 09, 2025 14:53
== END 2025-06-09 16:30 | disposition home health service (06) | DRG 853 ==
LOC: EDUNIT# 12:48 → ER 12:48 → EDBD 12:48 → OVERFLOW 19:51 → EAST 21:35 → TELE-EAST 06-02 20:34
PROVIDERS: ADMIT Student in an Organized Health Care Education/Training Program; ATTEND Student in an Organized Health Care Education/Training Program
PROC: 0V508ZZ Destruction of Prostate, Via Natural or Artificial Opening Endoscopic (ICD-10-PCS; principal; 2025-06-07 15:06)
DX: A41.59 Other Gram-negative sepsis (principal); G93.41 Metabolic encephalopathy; J15.69 Pneumonia due to other Gram-negative bacteria; J15.9 Unspecified bacterial pneumonia; I48.92 Unspecified atrial flutter; I50.22 Chronic systolic (congestive) heart failure; N13.8 Other obstructive and reflux uropathy; N39.0 Urinary tract infection, site not specified; R65.20 Severe sepsis without septic shock; I11.0 Hypertensive heart disease with heart failure; Z20.822 Contact with and (suspected) exposure to COVID-19; F03.90 Unspecified dementia, unspecified severity, without behavioral disturbance, psychotic disturbance, mood disturbance, and anxiety; E03.9 Hypothyroidism, unspecified; D53.9 Nutritional anemia, unspecified; E11.9 Type 2 diabetes mellitus without complications; R31.9 Hematuria, unspecified; E78.5 Hyperlipidemia, unspecified; N40.1 Benign prostatic hyperplasia with lower urinary tract symptoms; N39.498 Other specified urinary incontinence; R33.8 Other retention of urine; N32.0 Bladder-neck obstruction; K59.01 Slow transit constipation; I48.91 Unspecified atrial fibrillation; Z90.49 Acquired absence of other specified parts of digestive tract; Z90.79 Acquired absence of other genital organ(s); Z83.3 Family history of diabetes mellitus; Z79.01 Long term (current) use of anticoagulants
CPT/HCPCS: 36415; 71045; 74018; 74176; 76604; 76857; 80048; 80053; 80061; 80076; 81001; 82140; 82270; 82607; 82962; 83036; 83605; 83880; 84154; 84443; 84484; 85025; 85610; 85652; 85730; 86141; 86850; 86900; 86901; 87040; 87086; 87426; 87804; 93005; 94640; 96365; 96375; 97110; 97116; 97163; 99291; A4344; G0378; J1815; J1885; J2470; J2704; P9047